=== PATIENT | male | born 1945 | race Caucasian/White ===

== ENCOUNTER 2017-05-27 10:03 | Day surgery (SDC) | payer MEDICARE ==
[~2017-05-27 10:03] MED LIST: ACETAZOLAMIDE 250 MG TABLET PO ONE; Ak-Dilate OPHTHALMIC*** 0.71 ML, Cyclogyl 1% OPHTH SOL 5 ML 0.71 ML, GATIFLOXACIN 0.5% ... OP ONE; Lactated Ringers 1,000 ML IV ONE; Lactated Ringers 1,000 ML IV SCH; TETRACAINE 0.5% STERI-UNIT SOL OP ONE; Zofran 4 MG/2 ML VIAL IV PRN
[2017-05-27] MEDS ORDERED: DIPRIVAN 200 MG/20 ML IV ONE (10:04)
[2017-05-27] MEDS ORDERED: LIDOCAINE HCL 1% AMPUL 5 ML IJ ONE (12:00)
[2017-05-27] MEDS ORDERED: Epinephrine Preservative Free 1 MG/ML INTRAOP ONE (12:00)
[2017-05-27] MEDS ORDERED: BSS 500 ML, Fortaz/Tazicef 1 GM** 0.2 G IO ONE ×2 (12:00)
[2017-05-27] MEDS ORDERED: BETADINE 5% OPHTHALMIC 30 ML OP ONE (12:00)
[2017-05-27 12:52] VITALS: O2SAT 96
[2017-05-27 12:53] VITALS: BP 142/74; PULSE 62
--- NOTE | 2017-05-28 08:03 | OP ---
DATE/TIME OF OPERATION: 05/26/2017 1139 TIME DICTATED: 1522 PREOPERATIVE DIAGNOSIS: Senile cataract of right eye. POSTOPERATIVE DIAGNOSIS: Senile cataract of right eye. SURGEON: Rogerio Calix MD [employer] HELPER: None. OPERATION: Cataract extraction of right eye with an intraocular lens implant. STANDARD __X___ COMPLEX ANESTHESIA: MAC. ___X___ Monitored anesthesia care in combination with topical and intra-cameral anesthesia (because of the established specific risk of reflux, arrhythmias, or an anxiety attack associated with ocular manipulation as well as difficulty of the cattyman to manage such potentially catastrophic events while simultaneously attempting to complete the surgical procedure, it was deemed necessary for the patient's safety to have an anesthesiologist or a nurse weathercaster present during the procedure whenever possible. The anesthesiologist or the nurse weathercaster was utilized to monitor and regulate the intravenous sedation of the patient, so the patient was cooperative, relaxed, and comfortable). Topical anesthesia using Tetracaine eye drops together with intra cameral anesthesia using Lidocaine 1% MPF. The nurse was utilized to monitor the patient. ANESTHESIA PROVIDER: Thuan Copeland CRNA. COMPLICATIONS: None. BLOOD LOSS: None. INDICATIONS: The patient is undergoing cataract surgery in the hopes of eliminating the visual complaints and difficulty. PROCEDURE: After arriving at the facility's outpatient surgery area, an IV was started; the patient was given 5 mg of p.o. Versed. (If an anesthesia provider was not monitoring the patient) The patient was then given topical anesthetic Tetracaine eye drops. A cotton pellet was soaked into a solution of a combination of Zymaxid 0.5%, Taz-Synephrine 2.5% and Ocufen (other drops might have been substituted referenced in the patient's record). The pellet was inserted by the RN into the lower conjunctival cul-de-sac with a sterile forceps and left for 20 minutes. The pellet was then removed by the RN with a sterile forceps before taking the patient to the operating room. The preoperative area nurse identified the patient and marked the correct eye to be operated on. I identified the correct eye to be operated on and marked it appropriately in the outpatient surgery area. The patient was then taken into the operating room. Tetracaine eye drops were installed again in the correct eye. The eyelids and the lashes and the lid margins were scrubbed with Betadine solution. One drop of the diluted Betadine solution was placed in the conjunctival cul-de-sac for 45 seconds and then was irrigated. A drop of Tetracaine Gel was placed in the conjunctival cul-de-sac. The patient's forehead was taped to secure it during the procedure. The patient was monitored. The patient was then draped in the usual way for this procedure. An eye speculum was used to separate the eyelids. The eye was then fixated and a temporal 2.5 mm incision was made in the clear cornea temporally at the limbus. Through the incision, 0.25 cc of 1% non-preserved lidocaine was injected into the anterior chamber for intracameral anesthesia. The anterior chamber was then filled with viscoelastic. The pupil was small. I felt that it would be safer to mechanically dilate the pupil. A Malyugin ring was used at this point which dilated the pupil. That was removed at the end of the procedure prior to aspiration of the viscoelastic from the anterior chamber and posterior to the intraocular lens implant. The cataract had a great amount of cortical changes. That rendered seeing the anterior capsule difficult for a safe performance of an anterior capsulotomy. I injected an air bubble into the anterior chamber. I then injected 1 ML of vision blue solution into the anterior chamber. The vision blue solution was irrigated from the anterior chamber after 30 seconds. The anterior capsule was stained which facilitated performing the anterior capsulotomy safely. After that was completed, a cystotome was introduced into the anterior chamber and a round anterior capsulotomy was performed. The capsule was removed by a forceps. Hydrodissection was next carried utilizing a 25-gauge cannula and balanced salt solution to delineate the cortical material from the capsule and the nucleus from the cortical material. The nucleus was rotated freely into the capsular bag with no difficulty. The phaco tip of the [employer] Phacoemulsifier was introduced into the anterior chamber and two grooves were made into the nucleus 90 degrees apart. Using two spatulas resulted into the nucleus being fractured into four quadrants. The phaco tip was then used to remove each quadrant of the nucleus. Viscoelastic was used during this process to protect the corneal endothelium. Once the entire nucleus was removed, the phaco tip then was removed and the irrigation tip was introduced into the eye and the cortex was removed. The posterior capsule was polished. It was noticed that there was a tear into the posterior capsule with few vitreous strands into the pupil plan. An anterior vitrectomy was performed. A 23.50 diopter, [id number], posterior chamber lens implant, was inspected and found to be grossly normal. The implant was inserted into the implant injector cartridge; Viscoelastic again was introduced into the anterior chamber, which filled the capsular bag. The implant injector's cartridge tip was placed at the limbal wound and the posterior chamber implant was released into the capsular bag and rotated appropriately. The implant was found to be into the capsular bag and it was centered. __X___ 0.2 ml of Tri-Moxi was introduced via 27 gauge cannula into the vitreous cavity through the ciliary processes. Viscoelastic was aspirated from the anterior chamber and posterior to the intraocular lens implant from the capsular bag using the irrigating tip. The anterior chamber was irrigated and filled with 5 cc antibiotic solution (500 cc of BSS plus 2 ml of Fortaz 100 mg/ml) ( if patient was not allergic to the medication). The lips of the corneal incision were hydrated using BSS solution. The anterior chamber was checked and found to be water tight. One drop each of antibiotic, steroid and NSAID drops (refer to chart for drops used) were placed in the conjunctival cul-de-sac of the operated eye. Patient tolerated the procedure quite well and left the operating room in satisfactory condition. DISCHARGE SUMMARY: The patient was released in stable condition. The patient and those with the patient were given an instruction sheet as of how to care for the eye after surgery as well as counseling on any abnormal laboratory studies by the postoperative RN. The patient was also given an appointment card for follow-up in the office and is to call immediately for any difficulties including but not limited to pain in the eye, decreased vision, discharge from the eye, headache and or fever. DISCHARGE DIAGNOSIS: Pseudophakia of right eye.
== END 2017-05-27 13:15 | disposition home or self-care (01) ==
LOC: SDC 10:03
PROVIDERS: ATTEND Ophthalmology
PROC: 08RJ3JZ Replacement of Right Lens with Synthetic Substitute, Percutaneous Approach (ICD-10-PCS; principal; 2017-05-27)
DX: H25.9 Unspecified age-related cataract (principal)
CPT/HCPCS: 66984; C1780; 00142; 99100; J0171; J2704; A9270-GY

== ENCOUNTER 2017-07-29 07:55 | Day surgery (SDC) | payer MEDICARE ==
[~2017-07-29 07:55] MED LIST changes: -ACETAZOLAMIDE 250 MG TABLET PO ONE; -Ak-Dilate OPHTHALMIC*** 0.71 ML, Cyclogyl 1% OPHTH SOL 5 ML 0.71 ML, GATIFLOXACIN 0.5% ... OP ONE; -Lactated Ringers 1,000 ML IV SCH; -TETRACAINE 0.5% STERI-UNIT SOL OP ONE; -Zofran 4 MG/2 ML VIAL IV PRN
[2017-07-29] MEDS ORDERED: DIPRIVAN 200 MG/20 ML IV ONE (07:56)
[2017-07-29] MEDS ORDERED: Ak-Dilate OPHTHALMIC*** 0.71 ML, Cyclogyl 1% OPHTH SOL 5 ML 0.71 ML, GATIFLOXACIN 0.5% ... OP ONE ×4 (09:00)
[2017-07-29] MEDS ORDERED: LIDOCAINE HCL 1% AMPUL 5 ML IJ ONE (09:00)
[2017-07-29] MEDS ORDERED: BSS 500 ML, Fortaz/Tazicef 1 GM** 0.2 G IO ONE ×2 (09:00)
[2017-07-29] MEDS ORDERED: Lactated Ringers 1,000 ML IV SCH (09:00)
[2017-07-29] MEDS ORDERED: TETRACAINE 0.5% STERI-UNIT SOL OP ONE ×2 (09:00)
[2017-07-29] MEDS ORDERED: BETADINE 5% OPHTHALMIC 30 ML OP ONE (09:00)
[2017-07-29] MEDS ORDERED: Epinephrine Preservative Free 1 MG/ML INTRAOP ONE (09:00)
[2017-07-29] MEDS ORDERED: Zofran 4 MG/2 ML VIAL IV PRN (10:00)
[2017-07-29] MEDS ORDERED: ACETAZOLAMIDE 250 MG TABLET PO ONE (10:00)
[2017-07-29 10:44] VITALS: BP 153/76; PULSE 63; O2SAT 97
--- NOTE | 2017-07-29 13:15 | OP ---
DATE/TIME OF OPERATION: 07/29/2017 0858 TIME DICTATED: 1202 PREOPERATIVE DIAGNOSIS: Senile cataract of left eye. POSTOPERATIVE DIAGNOSIS: Senile cataract of left eye. SURGEON: Rogerio Calix MD KENNEL HELPER: None. OPERATION: Cataract extraction of left eye with an intraocular lens implant. STANDARD __X___ COMPLEX ANESTHESIA: MAC. ___X___ Monitored anesthesia care in combination with topical and intra-cameral anesthesia (because of the established specific risk of reflux, arrhythmias, or an anxiety attack associated with ocular manipulation as well as difficulty of the intermediate teacher to manage such potentially catastrophic events while simultaneously attempting to complete the surgical procedure, it was deemed necessary for the patient's safety to have an anesthesiologist or a nurse skeiner present during the procedure whenever possible. The anesthesiologist or the nurse skeiner was utilized to monitor and regulate the intravenous sedation of the patient, so the patient was cooperative, relaxed, and comfortable). Topical anesthesia using Tetracaine eye drops together with intra cameral anesthesia using Lidocaine 1% MPF. The nurse was utilized to monitor the patient. ANESTHESIA PROVIDER: Ravi Hanna CRNA. COMPLICATIONS: None. BLOOD LOSS: None. INDICATIONS: The patient is undergoing cataract surgery in the hopes of eliminating the visual complaints and difficulty. PROCEDURE: After arriving at the facility's outpatient surgery area, an IV was started; the patient was given 5 mg of p.o. Versed. (If an anesthesia provider was not monitoring the patient) The patient was then given topical anesthetic Tetracaine eye drops. A cotton pellet was soaked into a solution of a combination of Zymaxid 0.5%, Taz-Synephrine 2.5% and Ocufen (other drops might have been substituted referenced in the patient's record). The pellet was inserted by the RN into the lower conjunctival cul-de-sac with a sterile forceps and left for 20 minutes. The pellet was then removed by the RN with a sterile forceps before taking the patient to the operating room. The preoperative area nurse identified the patient and marked the correct eye to be operated on. I identified the correct eye to be operated on and marked it appropriately in the outpatient surgery area. The patient was then taken into the operating room. Tetracaine eye drops were installed again in the correct eye. The eyelids and the lashes and the lid margins were scrubbed with Betadine solution. One drop of the diluted Betadine solution was placed in the conjunctival cul-de-sac for 45 seconds and then was irrigated. A drop of Tetracaine Gel was placed in the conjunctival cul-de-sac. The patient's forehead was taped to secure it during the procedure. The patient was monitored. The patient was then draped in the usual way for this procedure. An eye speculum was used to separate the eyelids. The eye was then fixated and a temporal 2.5 mm incision was made in the clear cornea temporally at the limbus. Through the incision, 0.25 cc of 1% non-preserved lidocaine was injected into the anterior chamber for intracameral anesthesia. The anterior chamber was then filled with viscoelastic. The pupil was small. I felt that it would be safer to mechanically dilate the pupil. A Malyugin ring was used at this point which dilated the pupil. That was removed at the end of the procedure prior to aspiration of the viscoelastic from the anterior chamber and posterior to the intraocular lens implant. The cataract had a great amount of cortical changes. That rendered seeing the anterior capsule difficult for a safe performance of an anterior capsulotomy. I injected an air bubble into the anterior chamber. I then injected 1 ML of vision blue solution into the anterior chamber. The vision blue solution was irrigated from the anterior chamber after 30 seconds. The anterior capsule was stained which facilitated performing the anterior capsulotomy safely. After that was completed, a cystotome was introduced into the anterior chamber and a round anterior capsulotomy was performed. The capsule was removed by a forceps. Hydrodissection was next carried utilizing a 25-gauge cannula and balanced salt solution to delineate the cortical material from the capsule and the nucleus from the cortical material. The nucleus was rotated freely into the capsular bag with no difficulty. The phaco tip of the [employer] Phacoemulsifier was introduced into the anterior chamber and two grooves were made into the nucleus 90 degrees apart. Using two spatulas resulted into the nucleus being fractured into four quadrants. The phaco tip was then used to remove each quadrant of the nucleus. Viscoelastic was used during this process to protect the corneal endothelium. Once the entire nucleus was removed, the phaco tip then was removed and the irrigation tip was introduced into the eye and the cortex was removed. The posterior capsule was polished. It was noticed that there was a tear into the posterior capsule with few vitreous strands into the pupil plan. An anterior vitrectomy was performed. A 22.50 diopter, [id number], posterior chamber lens implant, was inspected and found to be grossly normal. The implant was inserted into the implant injector cartridge; Viscoelastic again was introduced into the anterior chamber, which filled the capsular bag. The implant injector's cartridge tip was placed at the limbal wound and the posterior chamber implant was released into the capsular bag and rotated appropriately. The implant was found to be into the capsular bag and it was centered. __X___ 0.2 ml of Tri-Moxi was introduced via 27 gauge cannula into the vitreous cavity through the ciliary processes. Viscoelastic was aspirated from the anterior chamber and posterior to the intraocular lens implant from the capsular bag using the irrigating tip. The anterior chamber was irrigated and filled with 5 cc antibiotic solution (500 cc of BSS plus 2 ml of Fortaz 100 mg/ml) ( if patient was not allergic to the medication). The lips of the corneal incision were hydrated using BSS solution. The anterior chamber was checked and found to be water tight. One drop each of antibiotic, steroid and NSAID drops (refer to chart for drops used) were placed in the conjunctival cul-de-sac of the operated eye. Patient tolerated the procedure quite well and left the operating room in satisfactory condition. DISCHARGE SUMMARY: The patient was released in stable condition. The patient and those with the patient were given an instruction sheet as of how to care for the eye after surgery as well as counseling on any abnormal laboratory studies by the postoperative RN. The patient was also given an appointment card for follow-up in the office and is to call immediately for any difficulties including but not limited to pain in the eye, decreased vision, discharge from the eye, headache and or fever. DISCHARGE DIAGNOSIS: Pseudophakia of left eye.
== END 2017-07-29 10:35 | disposition home or self-care (01) ==
LOC: SDC 07:55
PROVIDERS: ATTEND Ophthalmology
PROC: 08RK3JZ Replacement of Left Lens with Synthetic Substitute, Percutaneous Approach (ICD-10-PCS; principal; 2017-07-29)
PROC: 08B53ZZ Excision of Left Vitreous, Percutaneous Approach (ICD-10-PCS; 2017-07-29)
DX: H25.9 Unspecified age-related cataract (principal); E78.00 Pure hypercholesterolemia, unspecified; Z79.899 Other long term (current) drug therapy
CPT/HCPCS: 66984; 67005; C1780; 00142; 99100; J0171; J2704; A9270-GY

== ENCOUNTER 2017-08-22 13:44 | Emergency (ER) | payer MEDICARE ==
--- NOTE | 2017-08-22 14:27 | ERPHSYRPT ---
- History of Present Illness Time Seen by Provider: 08/22/17 14:14 Historian: patient, family Exam Limitations: no limitations Patient Subjective Stated Complaint: pt states last pm after eating he developed pain to right side and diaphragm. denies any injury. states he did have chills. Triage Nursing Assessment: pt pink, warm, dry. lung sounds clear and equal. Physician History: The patient is a 72-year-old male with his complaining that he had slight nausea and right upper quadrant abdominal pain after eating supper last night. He woke up about 1 AM with more abdominal pain that was across the upper part of his abdomen. The nausea has dissipated. He denies vomiting. He had slight chills last night. He denies cough. He thinks he may have coronary artery disease because he states his carotid arteries or 30% occluded. His past medical history is significant for cholecystectomy 15 years ago and high cholesterol. Timing/Duration: yesterday Activities at Onset: other (eating) Quality: aching Abdominal Pain Onset Location: RUQ, epigastric Severity of Pain-Max: mild Severity of Pain-Current: mild Associated Symptoms: nausea Previous symptoms: no prior history Allergies/Adverse Reactions: No Known Drug Allergies Allergy (Verified 08/22/17 14:06) Home Medications: Budesonide/Formoterol Fumarate [Symbicort 160-4.5 Mcg Inhaler] 1 puff IH DAILY 05/22/17 [History] Alprazolam 1 mg [Xanax 1 mg] 1 mg PO TIDPRN 08/22/17 [History] Loratadine 10 mg [Claritin 10 mg] 10 mg PO DAILY 08/22/17 [History] Pitavastatin Calcium [Livalo] 2 mg PO HS 08/22/17 [History] Hx Tetanus, Diphtheria Vaccination/Date Given: Yes (up date) Hx Influenza Vaccination/Date Given: Yes Hx Pneumococcal Vaccination/Date Given: No Immunizations Up to Date: Yes - Review of Systems Constitutional: No Fever, No Chills Eyes: No Symptoms Ears, Nose, & Throat: No Symptoms Respiratory: No Cough, No Dyspnea Cardiac: No Chest Pain, No Edema, No Syncope Abdominal/Gastrointestinal: Abdominal Pain, Nausea Genitourinary Symptoms: No Dysuria Musculoskeletal: No Back Pain, No Neck Pain Skin: No Rash Neurological: No Dizziness, No Focal Weakness, No Sensory Changes Psychological: No Symptoms Endocrine: No Symptoms Hematologic/Lymphatic: No Symptoms Immunological/Allergic: No Symptoms All Other Systems: Reviewed and Negative - Past Medical History Pertinent Past Medical History: Yes Neurological History: No Pertinent History ENT History: Cataracts Cardiac History: No Pertinent History Respiratory History: Asthma Endocrine Medical History: No Pertinent History Musculoskeletal History: No Pertinent History GI Medical History: Gallbladder Disease, Hemorrhoids History: No Pertinent History Psycho-Social History: No Pertinent History Male Reproductive Disorders: No Pertinent History - Past Surgical History Past Surgical History: Yes Neuro Surgical History: No Pertinent History Cardiac: No Pertinent History Respiratory: No Pertinent History Gastrointestinal: Cholecystectomy, Hemorrhoidectomy Genitourinary: No Pertinent History Musculoskeletal: No Pertinent History Male Surgical History: No Pertinent History Other Surgical History: hemrrhoid surgery rt eye cataract - Social History Smoking Status: Former smoker Exposure to second hand smoke: No Drug Use: none Patient Lives Alone: No - Nursing Vital Signs Nursing Vital Signs: Initial Vital Signs Temperature 97.8 F 08/22/17 14:00 Pulse Rate 81 08/22/17 14:00 Respiratory Rate 18 08/22/17 14:00 Blood Pressure 173/91 08/22/17 14:00 O2 Sat by Pulse Oximetry 96 08/22/17 14:00 Pain Scale Pain Intensity 0 - Physical Exam General Appearance: no apparent distress, alert Eye Exam: PERRL/EOMI, eyes nml inspection Ears, Nose, Throat Exam: normal ENT inspection, pharynx normal, moist mucous membranes Neck Exam: normal inspection, non-tender, supple, full range of motion Respiratory Exam: normal breath sounds, lungs clear, No respiratory distress Cardiovascular Exam: regular rate/rhythm, normal heart sounds Gastrointestinal/Abdomen Exam: tenderness (RUQ) Rectal Exam: not done Back Exam: normal inspection, normal range of motion, No CVA tenderness, No vertebral tenderness Extremity Exam: normal inspection, normal range of motion, pelvis stable Neurologic Exam: alert, oriented x 3, cooperative, normal mood/affect, nml cerebellar function, sensation nml, No motor deficits Skin Exam: normal color, warm, dry SpO2 Interpretation: normal SpO2: 96 Oxygen Delivery: Room Air - Course EKG Interpreted by Me: RATE, Sinus Rhythm, Left [place] Deviation, NORMAL INTERVALS , NORMAL ST-T - Radiology Exams Chest X-ray Interpretation: Teleradiologist Report, Negative (nonacute chest per Dr Park.) - CT Exams Abdomen/Pelvis CT Interpretation: Tele-radiologist Report (mild fecal stasis; diverticulosis; B renal cysts that may need CT o MRI; urinary bladder calcifications (possible malignancy); B inguinal hernias; heptic cysts and enlarged prostate; pulmonary emphysema. per Dr Park.) Ordered Tests: Active Orders 24 hr Category Date Time Status EKG-ER Only STAT Care 08/22/17 14:31 Active IV Insertion STAT Care 08/22/17 14:31 Active ABDOMEN AND PELVIS W/0 CONTRAS [CT] Stat Exams 08/22/17 15:52 Completed CHEST 2 VIEWS (PA AND LAT) Stat Exams 08/22/17 14:31 Completed CBC W DIFF Stat Lab 08/22/17 14:05 Completed CMP Stat Lab 08/22/17 14:05 Completed LIPASE Stat Lab 08/22/17 14:05 Completed Lactic Acid Stat Lab 08/22/17 14:31 Completed Manual Differential NC Stat Lab 08/22/17 14:05 Completed TROPONIN Q3H Lab 08/22/17 14:45 Completed TROPONIN Q3H Lab 08/22/17 18:00 Received TROPONIN Q3H Lab 08/22/17 20:45 Ordered TROPONIN Q3H Lab 08/22/17 23:45 Ordered TROPONIN Q3H Lab 08/23/17 02:45 Ordered UA W/RFX UR CULTURE Stat Lab 08/22/17 18:47 Completed Medication Summary Discontinued Medications Generic Name Dose Route Start Last Admin Trade Name Freq PRN Reason Stop Dose Admin Alprazolam 1 mg 08/22/17 16:27 08/22/17 16:34 Xanax 0.5 Mg PO 08/22/17 16:28 0.5 mg STAT ONE Administration Alprazolam Confirm 08/22/17 16:33 Xanax 0.5 Mg Administered 08/22/17 16:34 Dose 1 mg .ROUTE .STK-MED ONE Famotidine 20 mg 08/22/17 14:31 08/22/17 14:46 Pepcid 20 Mg Vial IV 08/22/17 14:32 20 mg STAT ONE Administration Famotidine Confirm 08/22/17 14:39 Pepcid 20 Mg Vial Administered 08/22/17 14:40 Dose 20 mg IV .STK-MED ONE Ondansetron HCl 4 mg 08/22/17 14:31 08/22/17 14:46 Zofran 4 Mg/2 Ml Vial IV 08/22/17 14:32 4 mg STAT ONE Administration Ondansetron HCl Confirm 08/22/17 14:39 Zofran 4 Mg/2 Ml Vial Administered 08/22/17 14:40 Dose 4 mg .ROUTE .STK-MED ONE Lab/Rad Data: Laboratory Result Diagrams 08/22/17 14:05 08/22/17 14:05 Laboratory Results 08/22/17 08/22/17 08/22/17 Range/Units 18:47 14:45 14:31 WBC (4.0-10.5) K/mm3 RBC (4.1-5.6) M/mm3 Hgb (12.5-18.0) gm/dl Hct (42-50) % MCV (78-100) fl MCH (26-32) pg MCHC (32-36) g/dl RDW (11.5-14.0) % Plt Count (150-450) K/mm3 MPV (6-9.5) fl Segmented Neutrophils (36.-66.) % Band Neutrophils (0.0-2.0) % Lymphocytes (Manual) (24-44) % Monocytes (Manual) (0.0-12.0) % Eosinophils (Manual) (0.00-3.0) % Basophils (Manual) (0.0-1.0) % Differential Comment Platelet Estimate (NORMAL) Sodium (136-145) mEq/L Potassium (3.5-5.1) mEq/L Chloride (98-107) mEq/L Carbon Dioxide (21-32) mEq/L Anion Gap (5-15) MEQ/L BUN (9-20) mg/dL Creatinine (0.55-1.30) mg/dl Estimated GFR ML/MIN Glucose (70-110) MG/DL Lactic Acid 1.5 (0.4-2.0) Calcium (8.5-10.1) mg/dL Total Bilirubin (0.2-1.0) mg/dL AST (15-37) U/L ALT (12-78) U/L Alkaline Phosphatase (46-116) U/L Troponin I < 0.017 (0.000-0.056) ng/ml Serum Total Protein (6.4-8.2) gm/dL Albumin (3.4-5.0) g/dL Lipase (73-393) U/L Ur Collection Type CLEAN CATCH Urine Color YELLOW (YELLOW) Urine Appearance CLEAR (CLEAR) Urine pH 6.0 (5-6) Ur Specific [place] 1.020 (1.005-1.025) Urine Protein NEGATIVE (Negative) Urine Ketones NEGATIVE (NEGATIVE) Urine Blood NEGATIVE (0-5) David/ul Urine Nitrite NEGATIVE (NEGATIVE) Urine Bilirubin NEGATIVE (NEGATIVE) Urine Urobilinogen NORMAL (0-1) mg/dL Ur Leukocyte Esterase NEGATIVE (NEGATIVE) Urine Culture Reflexed NO (NO) Urine Glucose NEGATIVE (NEGATIVE) mg/dL Influenza Type A Ag (NEGATIVE) Influenza Type B Ag (NEGATIVE) RSV (PCR) (Negative) Specimen Received [id number] 08/22/17 08/22/17 08/22/17 Range/Units 14:05 14:05 14:05 WBC 13.4 H (4.0-10.5) K/mm3 RBC 5.56 (4.1-5.6) M/mm3 Hgb 17.0 (12.5-18.0) gm/dl Hct 53.0 H (42-50) % MCV 95.3 (78-100) fl MCH 30.6 (26-32) pg MCHC 32.1 (32-36) g/dl RDW 13.0 (11.5-14.0) % Plt Count 244 (150-450) K/mm3 MPV 9.1 (6-9.5) fl Segmented Neutrophils 73 H (36.-66.) % Band Neutrophils 1 (0.0-2.0) % Lymphocytes (Manual) 17 L (24-44) % Monocytes (Manual) 6 (0.0-12.0) % Eosinophils (Manual) 2 (0.00-3.0) % Basophils (Manual) 1 (0.0-1.0) % Differential Comment NORMAL Platelet Estimate NORMAL (NORMAL) Sodium 143 (136-145) mEq/L Potassium 3.8 (3.5-5.1) mEq/L Chloride 104 (98-107) mEq/L Carbon Dioxide 30.4 (21-32) mEq/L Anion Gap 12.0 (5-15) MEQ/L BUN 16 (9-20) mg/dL Creatinine 1.08 (0.55-1.30) mg/dl Estimated GFR > 60 ML/MIN Glucose 93 (70-110) MG/DL Lactic Acid (0.4-2.0) Calcium 9.2 (8.5-10.1) mg/dL Total Bilirubin 0.60 (0.2-1.0) mg/dL AST 21 (15-37) U/L ALT 30 (12-78) U/L Alkaline Phosphatase 76 (46-116) U/L Troponin I (0.000-0.056) ng/ml Serum Total Protein 7.8 (6.4-8.2) gm/dL Albumin 3.9 (3.4-5.0) g/dL Lipase 119 (73-393) U/L Ur Collection Type Urine Color (YELLOW) Urine Appearance (CLEAR) Urine pH (5-6) Ur Specific [place] (1.005-1.025) Urine Protein (Negative) Urine Ketones (NEGATIVE) Urine Blood (0-5) David/ul Urine Nitrite (NEGATIVE) Urine Bilirubin (NEGATIVE) Urine Urobilinogen (0-1) mg/dL Ur Leukocyte Esterase (NEGATIVE) Urine Culture Reflexed (NO) Urine Glucose (NEGATIVE) mg/dL Influenza Type A Ag NEGATIVE (NEGATIVE) Influenza Type B Ag NEGATIVE (NEGATIVE) RSV (PCR) NEGATIVE (Negative) Specimen Received - Progress Progress Note: 08/22/17 18:57 After the patient received Xanax 0.5 mg orally and Pepcid 20 mg and Zofran 4 mg by IV, the patient is now feeling much better. He is now hungry. He has no abdominal pain. Counseled pt/family regarding: lab results, diagnosis, need for follow-up, rad results - Departure Time of Disposition: 18:56 Departure Disposition: Home Clinical Impression: Abdominal pain, Renal cyst, Calcification of bladder Condition: Stable Critical Care Time: No Referrals: ZONIA LAWRENCE [Primary Care Provider] - Additional Instructions: You have abdominal pain that was relieved with Pepcid 20 mg and Zofran 4 mg by IV in the ER. The CT of the abdomen and pelvis showed mild fecal stasis, multiple bilateral renal cysts, urinary bladder calcifications, bilateral inguinal hernias, and an enlarged prostate. Please follow-up with your doctor for further evaluation of the renal cysts and urinary bladder calcifications.
[2017-08-22] MEDS ORDERED: Pepcid 20 MG VIAL IV ONE ×2 (14:31→14:39)
[2017-08-22] MEDS ORDERED: Zofran 4 MG/2 ML VIAL IV ONE (14:31)
[2017-08-22] MEDS ORDERED: Zofran 4 MG/2 ML VIAL ONE (14:39)
[2017-08-22 14:59] LABS: Mean Cell Volume 95.3 fl (78-100); Mean Corpuscular Hemoglobin 30.6 pg (26-32); Mean Platelet Volume 9.1 fl (6-9.5); Platelet Count 244 K/mm3 (150-450); Red Blood Count 5.56 M/mm3 (4.1-5.6); White Blood Count 13.4 K/mm3 (4.0-10.5)
[2017-08-22 15:22] LABS: BAND 1 % (0.0-2.0); Basophil 1 % (0.0-1.0); Eosinophil 2 % (0.00-3.0); Platelet Estimate NORMAL (NORMAL); Total Cells Counted 100
[2017-08-22 15:23] LABS: ALBUMIN 3.9 g/dL (3.4-5.0); ALKALINE PHOSPHATASE 76 U/L (46-116); BLOOD UREA NITROGEN 16 mg/dL (9-20); CHLORIDE 104 mEq/L (98-107); Carbon Dioxide 30.4 mEq/L (21-32); Glucose 93 MG/DL (70-110); LIPASE 119 U/L (73-393); Potassium 3.8 mEq/L (3.5-5.1); SGOT/AST 21 U/L (15-37); SGPT/ALT 30 U/L (12-78); SODIUM 143 mEq/L (136-145); Total Protein 7.8 gm/dL (6.4-8.2)
--- NOTE | 2017-08-22 15:41 | XRAY ---
Indication: Cough and right-sided chest pain. Comparison: May 10, 2011. PA/lateral chest hyperinflated without focal infiltrate, consolidation, or large effusion. Heart is not enlarged. Vascularity normal. Bony thorax intact with mild degenerative changes. Impression: Nonacute hyperinflated chest.
[2017-08-22] MEDS ORDERED: xanAX 0.5 MG PO ONE (16:27)
[2017-08-22] MEDS ORDERED: xanAX 0.5 MG ONE (16:33)
--- NOTE | 2017-08-22 16:54 | XRAY ---
Indication: Right-sided abdominal pain. Multiple contiguous axial images obtained through the abdomen and pelvis without contrast as ordered. Comparison: None Lung bases demonstrates mild pulmonary emphysema and bibasilar atelectasis/scarring. No infiltrate or effusion. Heart is not enlarged. Noncontrasted stomach and bowel loops appear nonobstructed. Mild diffuse scattered colonic fecal debris throughout. Also scattered colonic diverticulosis without diverticulitis. Normal appendix. No free fluid/air. There are multiple bilateral renal cysts, several appearing slightly more dense than simple cysts. Largest cyst emanates from the right lower pole measuring 5 cm. No renal calcifications/calculi or evidence for obstructive uropathy. There are posterior bladder wall calcifications, largest 4 x 11 mm. Enlarged prostate gland also impresses on the base of the bladder. There are a few hepatic cysts, largest 1 cm in the right lobe. Previous cholecystectomy. Remaining liver, pancreas, spleen, adrenal glands, and ureters appear unremarkable for noncontrast exam. Moderate aortoiliac calcifications without AAA. Osseous structures intact with mild degenerative changes throughout the spine, greatest at the lumbosacral junction. Small fatty left inguinal hernia and small right inguinal hernia with knuckle of small bowel herniating. Impression: 1. Mild fecal stasis without obstruction and scattered colonic diverticulosis. 2. Multiple bilateral renal cysts, several appearing more dense than simple cysts. CT or MRI with and without contrast may yield further information. 3. Urinary bladder calcifications posteriorly probably bladder wall calcifications. Rule out malignancy. Direct cystoscopy may yield further information. 4. Small bilateral inguinal hernias. Left hernia is fatty and the right hernia contains a knuckle of small bowel without incarceration/obstruction. 5. Tiny hepatic cysts and enlarged prostate gland. 6. Pulmonary emphysema. CTDI 13.72
[2017-08-22 18:48] LABS: ADD URINE CULTURE? NO (NO); Bilirubin NEGATIVE (NEGATIVE); Blood NEGATIVE Ery/ul (0-5); COMPLETE URINE MICROSCOPIC? NO; Collection Type CLEAN CATCH; Glucose NEGATIVE (NEGATIVE); Leukocyte Esterase NEGATIVE (NEGATIVE)
[2017-08-22 19:13] VITALS: BP 161/79; PULSE 85; O2SAT 95
== END 2017-08-22 19:13 | disposition home or self-care (01) ==
LOC: ED 13:44
DX: R10.11 Right upper quadrant pain (principal); N28.1 Cyst of kidney, acquired; N32.89 Other specified disorders of bladder; R11.0 Nausea; Z79.899 Other long term (current) drug therapy
CPT/HCPCS: 36000; 36415; 71020; 74176; 80053; 81002; 83605; 83690; 84484; 85025; 87631; 93005; 96374; 96375; 99284; J2405; A9270-GY

== ENCOUNTER 2018-05-31 14:05 | Emergency (ER) | payer MEDICARE ==
[2018-05-31] MEDS ORDERED: Adacel Vial IM ONE ×2 (14:24→14:29)
--- NOTE | 2018-05-31 14:24 | ERPHSYRPT ---
- History of Present Illness Time Seen by Provider: 05/31/18 14:20 Source: patient, family Exam Limitations: no limitations Patient Subjective Stated Complaint: pt states he was working on his car when the santiago fell down striking his left arm last night approx 5pm. denies pain. Triage Nursing Assessment: pt is aox3, pupils perrl, afebrile, resps easy and non labored, skin pink warm dry. skin tear to the left forearm. no bleeding at this time. radial pulses strong and equal, sensation is intact. ROM normal. Physician History: The patient is a 73-year-old left-handed male with his complaining that he got a skin tear to the midportion of his left forearm yesterday while working on his car. He was wearing a longsleeved jacket when the car santiago fell onto his left arm. He tried pulling his arm out from underneath the santiago, causing a skin tear to his arm. He denies much pain. He denies numbness or tingling. His last tetanus vaccination was 10 years ago. His past medical history is significant for high cholesterol. Timing/Duration: yesterday Quality: painful Severity: mild Location: extremities (left forearm) Possible Causes: other (trauma) Associated Symptoms: other (skin tear) Allergies/Adverse Reactions: No Known Drug Allergies Allergy (Verified 05/31/18 14:20) Home Medications: Budesonide/Formoterol Fumarate [Symbicort 160-4.5 Mcg Inhaler] 1 puff IH DAILY 05/22/17 [History] Alprazolam 1 mg [Xanax 1 mg] 1 mg PO TIDPRN 08/22/17 [History] Loratadine 10 mg [Claritin 10 mg] 10 mg PO DAILY 08/22/17 [History] Pitavastatin Calcium [Livalo] 2 mg PO HS 08/22/17 [History] Hx Tetanus, Diphtheria Vaccination/Date Given: No Hx Influenza Vaccination/Date Given: No Hx Pneumococcal Vaccination/Date Given: No Immunizations Up to Date: Yes - Review of Systems Constitutional: No Fever, No Chills Eyes: No Symptoms Ears, Nose, & Throat: No Symptoms Respiratory: No Cough, No Dyspnea Cardiac: No Chest Pain, No Edema, No Syncope Abdominal/Gastrointestinal: No Abdominal Pain, No Nausea, No Vomiting, No Diarrhea Genitourinary Symptoms: No Dysuria Musculoskeletal: No Back Pain, No Neck Pain Skin: Other (skin tear) Neurological: No Dizziness, No Focal Weakness, No Sensory Changes Psychological: No Symptoms Endocrine: No Symptoms Hematologic/Lymphatic: No Symptoms Immunological/Allergic: No Symptoms All Other Systems: Reviewed and Negative - Past Medical History Pertinent Past Medical History: Yes Neurological History: No Pertinent History ENT History: Cataracts Cardiac History: No Pertinent History Respiratory History: Asthma Endocrine Medical History: No Pertinent History Musculoskeletal History: No Pertinent History GI Medical History: Gallbladder Disease, Hemorrhoids History: No Pertinent History Psycho-Social History: No Pertinent History Male Reproductive Disorders: No Pertinent History - Past Surgical History Past Surgical History: Yes Neuro Surgical History: No Pertinent History Cardiac: No Pertinent History Respiratory: No Pertinent History Gastrointestinal: Cholecystectomy, Hemorrhoidectomy Genitourinary: No Pertinent History Musculoskeletal: No Pertinent History Male Surgical History: No Pertinent History Other Surgical History: hemrrhoid surgery. rt eye cataract - Social History Smoking Status: Never smoker Exposure to second hand smoke: No Drug Use: none Patient Lives Alone: No - Nursing Vital Signs Nursing Vital Signs: Initial Vital Signs Pulse Rate 71 05/31/18 14:10 Respiratory Rate 20 05/31/18 14:10 Blood Pressure 146/78 05/31/18 14:10 O2 Sat by Pulse Oximetry 95 05/31/18 14:10 Pain Scale Pain Intensity 0 - Physical Exam General Appearance: no apparent distress, alert Eye Exam: PERRL/EOMI, eyes nml inspection Ears, Nose, Throat Exam: normal ENT inspection, pharynx normal, moist mucous membranes Neck Exam: normal inspection, non-tender, supple, full range of motion Respiratory Exam: normal breath sounds, lungs clear, No respiratory distress Cardiovascular Exam: regular rate/rhythm, normal heart sounds Gastrointestinal/Abdomen Exam: soft, mass, No tenderness Rectal Exam: not done Back Exam: normal inspection, normal range of motion, No CVA tenderness, No vertebral tenderness Extremity Exam: normal inspection, normal range of motion Neurologic Exam: alert, oriented x 3, cooperative, normal mood/affect, sensation nml, No motor deficits Skin Exam: laceration (4 cm v-shaped skin tear to mid left forearm.) SpO2 Interpretation: normal SpO2: 95 Oxygen Delivery: Room Air Ordered Tests: Active Orders 24 hr Category Date Time Status Wound Care STAT Care 05/31/18 14:23 Ordered Wound Care STAT Care 05/31/18 14:24 Ordered - Departure Time of Disposition: 14:26 Departure Disposition: Home Clinical Impression: Skin tear Condition: Stable Critical Care Time: No Referrals: ZONIA LAWRENCE [Primary Care Provider] - Additional Instructions: You have a skin tear to the mid portion of your left forearm that was closed with Steri-Strips. You were given a tetanus vaccination in the ER. Take Keflex 500 mg 4 times a day for 10 days. Allow the Steri-Strips to fall off on their own. Follow-up with your primary medical doctor as needed. Prescriptions: Cephalexin Mh 500 mg [Keflex 500 mg] 1 cap PO QID #40 capsule
[2018-05-31 15:03] VITALS: BP 143/68; PULSE 76; O2SAT 97
== END 2018-05-31 15:03 | disposition home or self-care (01) ==
LOC: ED 14:05
DX: S51.812A Laceration without foreign body of left forearm, initial encounter (principal); W20.8XXA Other cause of strike by thrown, projected or falling object, initial encounter; Y93.89 Activity, other specified; Z79.899 Other long term (current) drug therapy
CPT/HCPCS: 90471; 90715; 99283

== ENCOUNTER 2019-08-02 09:46 | Emergency (ER) | payer MEDICARE ==
[2019-08-02] MEDS ORDERED: Sodium Chloride 0.9% 1000 ML 1,000 ML IV STA ×2 (10:14→12:28)
[2019-08-02] MEDS ORDERED: Sodium Chloride 0.9% 1000 ML 1,000 ML ONE ×2 (10:28→12:32)
[2019-08-02 10:37] LABS: Absolute Neutrophil Ct (ANC) 4.29 (1.4-6.9); BASOPHIL % 0.5 % (0.0-0.4); Basophil (Absolute #) 0.03 (0-0.4); Eosinophil % 1.7 % (0.00-5.0); Eosinophil (Absolute #) 0.11 (0-0.5); Hematocrit 49.5 % (42-50); Hemoglobin 16.6 gm/dl (12.5-18.0); Lymphocyte (Absolute #) 1.31 (1.0-4.6); Mean Cell Volume 93.2 fl (78-100); Mean Corpuscular Hemoglobin 31.3 pg (26-32); Mean Corpuscular Hgb Concent. 33.5 g/dl (32-36); Mean Platelet Volume 8.9 fl (6-9.5); Monocyte (Absolute #) 0.82 (0.0-1.3); Monocytes % 12.5 % (0.0-12.0); Neutrophil % 65.3 % (36.0-66.0); Platelet Count 210 K/mm3 (150-450); Red Blood Count 5.31 M/mm3 (4.1-5.6); Red Cell Distribution Width 12.9 % (11.5-14.0); White Blood Count 6.6 K/mm3 (4.0-10.5)
[2019-08-02 10:38] LABS: ALBUMIN 4.1 g/dL (3.5-5.0); ALKALINE PHOSPHATASE 57 U/L (38-126); AMYLASE 91 U/L (30-110); ANION GAP 13.1 MEQ/L (5-15); BLOOD UREA NITROGEN 12 mg/dL (9-20); CHLORIDE 105 mmol/L (98-107); Calcium 8.7 mg/dL (8.4-10.2); Carbon Dioxide 26 mmol/L (22-30); Creatinine 1 0.75 mg/dL (0.66-1.25); Glucose 124 mg/dL (74-106); LIPASE 80 U/L (23-300); Potassium 3.2 mmol/L (3.5-5.1); SGOT/AST 35 U/L (17-59); SGPT/ALT 32 U/L (0-50); SODIUM 141 mmol/L (137-145); Total Protein 7.3 g/dL (6.3-8.2)
--- NOTE | 2019-08-02 11:15 | XRAY ---
Indication: Vomiting 5 days. Comparison: Chest exam April 28, 2019. 2 views of the abdomen demonstrates a few mild air distended small bowel loops with fluid leveling. There is paucity of distal colonic bowel gas. Findings possibly ileus versus enterocolitis with distal small bowel obstruction not completely excluded. Previous cholecystomy. Osseous structures intact with mild degenerative changes throughout the spine and both hips. Single PA chest again hyperinflated with minimal left base fibrosis/scarring. No focal infiltrate, consolidation, or large effusion. Heart is not enlarged with stable subcarinal calcified nodes. Bony thorax intact again with mild degenerative changes. Impression: 1. Mild air distended small bowel loops with fluid leveling, ileus versus enterocolitis with distal obstruction not completely excluded. CT may yield further information if clinically warranted. 2. Stable nonacute hyperinflated chest with chronic features.
[2019-08-02 13:43] LABS: Appearance CLEAR (CLEAR); Bilirubin NEGATIVE (NEGATIVE); Blood SMALL Ery/ul (0-5); Glucose NEGATIVE (NEGATIVE); Ketones NEGATIVE (NEGATIVE); Leukocyte Esterase NEGATIVE (NEGATIVE); Mucus SLIGHT /HPF (NEGATIVE); Nitrite NEGATIVE (NEGATIVE); Protein,Urine Dip NEGATIVE (Negative); Specific Gravity 1.009 (1.005-1.025); Urobilinogen NEGATIVE mg/dL (0-1)
[2019-08-02 14:03] LABS: 027 TOX PROD PRESUMPTIVE NEGATIVE (NEGATIVE); TOXIGENIC C. DIFF ORG NEGATIVE (NEGATIVE)
--- NOTE | 2019-08-02 14:03 | ERPHSYRPT ---
- History of Present Illness Time Seen by Provider: 08/02/19 10:15 Historian: patient, family Exam Limitations: no limitations Patient Subjective Stated Complaint: diarrhea Triage Nursing Assessment: Patient ambulated into ED and transferred self to bed. Patient A+O X3. Patient's skin pink, warm and dry. Patient complains of vomitted and diarrhea for 5 days. Patient denies pain or discomfort. BS active X4. Patient's abdomen soft and round. Physician History: patient is a 74-year-old white male whose was seen in ER yesterday who presents with a five-day history of nausea and vomiting and rate continuous frequent diarrhea. He has had some fever chills and sweats his was in the ER yesterday was given IV fluids. Timing/Duration: day(s) (5) Activities at Onset: none Quality: cramping Abdominal Pain Onset Location: generalized abdomen Pain Radiation: no radiation Severity of Pain-Max: mild Severity of Pain-Current: mild Modifying Factors: Improves With: nothing, vomiting Associated Symptoms: diarrhea, fever/chills, nausea, vomiting, weakness Previous symptoms: no prior history Allergies/Adverse Reactions: No Known Drug Allergies Allergy (Verified 08/02/19 10:14) Home Medications: Alprazolam 1 mg [Xanax 1 mg] 1 mg PO Q4HPRN PRN 08/22/17 [History] Loratadine 10 mg [Claritin 10 mg] 10 mg PO DAILY 08/22/17 [History] Rosuvastatin Calcium [Crestor] 10 mg PO DAILY 08/02/19 [History] Hx Tetanus, Diphtheria Vaccination/Date Given: Yes (06/07/18) Hx Influenza Vaccination/Date Given: Yes (05/31/19) Hx Pneumococcal Vaccination/Date Given: Yes (2010) Immunizations Up to Date: Yes - Review of Systems Constitutional: No Fever, No Chills Eyes: No Symptoms Ears, Nose, & Throat: No Symptoms Respiratory: No Cough, No Dyspnea Cardiac: No Chest Pain, No Edema, No Syncope Abdominal/Gastrointestinal: Nausea, Vomiting, Diarrhea, No Abdominal Pain Genitourinary Symptoms: No Dysuria Musculoskeletal: No Back Pain, No Neck Pain Skin: No Rash Neurological: No Dizziness, No Focal Weakness, No Sensory Changes Psychological: No Symptoms Endocrine: No Symptoms All Other Systems: Reviewed and Negative - Past Medical History Pertinent Past Medical History: Yes Neurological History: No Pertinent History ENT History: Cataracts Cardiac History: No Pertinent History Respiratory History: Asthma Endocrine Medical History: No Pertinent History Musculoskeletal History: No Pertinent History GI Medical History: Gallbladder Disease, Hemorrhoids History: No Pertinent History Psycho-Social History: No Pertinent History Male Reproductive Disorders: No Pertinent History - Past Surgical History Past Surgical History: Yes Neuro Surgical History: No Pertinent History Cardiac: No Pertinent History Respiratory: No Pertinent History Gastrointestinal: Cholecystectomy, Hemorrhoidectomy Genitourinary: No Pertinent History Musculoskeletal: No Pertinent History Male Surgical History: No Pertinent History Other Surgical History: hemrrhoid surgery. rt eye cataract - Social History Smoking Status: Never smoker Exposure to second hand smoke: No Drug Use: none Patient Lives Alone: No - Nursing Vital Signs Nursing Vital Signs: Initial Vital Signs Temperature 97.9 F 08/02/19 10:03 Pulse Rate 70 08/02/19 10:03 Respiratory Rate 18 08/02/19 10:03 Blood Pressure 143/100 08/02/19 10:03 O2 Sat by Pulse Oximetry 96 08/02/19 10:03 Pain Scale Pain Intensity 0 - Physical Exam General Appearance: no apparent distress, alert Eye Exam: PERRL/EOMI, eyes nml inspection Ears, Nose, Throat Exam: normal ENT inspection, pharynx normal, moist mucous membranes Neck Exam: normal inspection, non-tender, supple, full range of motion Respiratory Exam: normal breath sounds, lungs clear, No respiratory distress Cardiovascular Exam: regular rate/rhythm, normal heart sounds Gastrointestinal/Abdomen Exam: soft, No tenderness, No mass Back Exam: normal inspection, normal range of motion, No CVA tenderness, No vertebral tenderness Extremity Exam: normal inspection, normal range of motion, pelvis stable Neurologic Exam: alert, oriented x 3, cooperative, normal mood/affect, nml cerebellar function, sensation nml, No motor deficits Skin Exam: normal color, warm, dry SpO2: 96 - Course Nursing assessment & vital signs reviewed: Yes Ordered Tests: Active Orders 24 hr Category Date Time Status OBSTR/ACUTE ABDOMEN SERIES Stat Exams 08/02/19 10:15 Completed AMYLASE Stat Lab 08/02/19 10:26 Completed CBC W DIFF Stat Lab 08/02/19 10:26 Completed CMP Stat Lab 08/02/19 10:26 Completed LIPASE Stat Lab 08/02/19 10:26 Completed Lactic Acid Stat Lab 08/02/19 10:23 Completed UA W/RFX UR CULTURE Stat Lab 08/02/19 10:15 Completed Medication Summary Discontinued Medications Generic Name Dose Route Start Last Admin Trade Name Gerardo PRN Reason Stop Dose Admin Sodium Chloride 1,000 mls @ 999 mls/hr 08/02/19 10:14 08/02/19 12:19 Sodium Chloride 0.9% 1000 Ml IV 08/02/19 11:14 Infused .Q1H1M STA Infusion Sodium Chloride Confirm 08/02/19 10:28 Sodium Chloride 0.9% 1000 Ml Administered 08/02/19 10:29 Dose 1,000 mls @ ud .ROUTE .STK-MED ONE Sodium Chloride 1,000 mls @ 999 mls/hr 08/02/19 12:28 08/02/19 12:33 Sodium Chloride 0.9% 1000 Ml IV 08/02/19 13:28 999 mls/hr .Q1H1M STA Administration Sodium Chloride Confirm 08/02/19 12:32 Sodium Chloride 0.9% 1000 Ml Administered 08/02/19 12:33 Dose 1,000 mls @ ud .ROUTE .ST[place]ook-MED ONE Lab/Rad Data: Laboratory Result Diagrams 08/02/19 10:26 08/02/19 10:26 Laboratory Results 08/02/19 08/02/19 08/02/19 Range/Units 10:26 10:26 10:23 WBC 6.6 (4.0-10.5) K/mm3 RBC 5.31 (4.1-5.6) M/mm3 Hgb 16.6 (12.5-18.0) gm/dl Hct 49.5 (42-50) % MCV 93.2 (78-100) fl MCH 31.3 (26-32) pg MCHC 33.5 (32-36) g/dl RDW 12.9 (11.5-14.0) % Plt Count 210 (150-450) K/mm3 MPV 8.9 (6-9.5) fl Gran % 65.3 (36.0-66.0) % Eos # (Auto) 0.11 (0-0.5) Absolute Lymphs (auto) 1.31 (1.0-4.6) Absolute Monos (auto) 0.82 (0.0-1.3) Lymphocytes % 20.0 L (24.0-44.0) % Monocytes % 12.5 H (0.0-12.0) % Eosinophils % 1.7 (0.00-5.0) % Basophils % 0.5 (0.0-0.4) % Absolute Granulocytes 4.29 (1.4-6.9) Basophils # 0.03 (0-0.4) Sodium 141 (137-145) mmol/L Potassium 3.2 L (3.5-5.1) mmol/L Chloride 105 (98-107) mmol/L Carbon Dioxide 26 (22-30) mmol/L Anion Gap 13.1 (5-15) MEQ/L BUN 12 (9-20) mg/dL Creatinine 0.75 (0.66-1.25) mg/dL Estimated GFR > 60.0 ML/MIN Glucose 124 H (74-106) mg/dL Lactic Acid 1.2 (0.4-2.0) Calcium 8.7 (8.4-10.2) mg/dL Total Bilirubin 0.90 (0.2-1.3) mg/dL AST 35 (17-59) U/L ALT 32 (0-50) U/L Alkaline Phosphatase 57 (38-126) U/L Serum Total Protein 7.3 (6.3-8.2) g/dL Albumin 4.1 (3.5-5.0) g/dL Amylase 91 (30-110) U/L Lipase 80 (23-300) U/L Urine Color (YELLOW) Urine Appearance (CLEAR) Urine pH (5-6) Ur Specific Butler (1.005-1.025) Urine Protein (Negative) Urine Ketones (NEGATIVE) Urine Blood (0-5) David/ul Urine Nitrite (NEGATIVE) Urine Bilirubin (NEGATIVE) Urine Urobilinogen (0-1) mg/dL Ur Leukocyte Esterase (NEGATIVE) Urine WBC (Auto) (0-5) /HPF Urine RBC (Auto) (0-2) /HPF U Epithel Cells (Auto) (FEW) /HPF Urine Bacteria (Auto) (NEGATIVE) /HPF Urine Mucus (Auto) (NEGATIVE) /HPF Urine Culture Reflexed (NO) Urine Glucose (NEGATIVE) mg/dL 08/02/ Range/Units 10:15 WBC (4.0-10.5) K/mm3 RBC (4.1-5.6) M/mm3 Hgb (12.5-18.0) gm/dl Hct (42-50) % MCV (78-100) fl MCH (26-32) pg MCHC (32-36) g/dl RDW (11.5-14.0) % Plt Count (150-450) K/mm3 MPV (6-9.5) fl Gran % (36.0-66.0) % Eos # (Auto) (0-0.5) Absolute Lymphs (auto) (1.0-4.6) Absolute Monos (auto) (0.0-1.3) Lymphocytes % (24.0-44.0) % Monocytes % (0.0-12.0) % Eosinophils % (0.00-5.0) % Basophils % (0.0-0.4) % Absolute Granulocytes (1.4-6.9) Basophils # (0-0.4) Sodium (137-145) mmol/L Potassium (3.5-5.1) mmol/L Chloride (98-107) mmol/L Carbon Dioxide (22-30) mmol/L Anion Gap (5-15) MEQ/L BUN (9-20) mg/dL Creatinine (0.66-1.25) mg/dL Estimated GFR ML/MIN Glucose (74-106) mg/dL Lactic Acid (0.4-2.0) Calcium (8.4-10.2) mg/dL Total Bilirubin (0.2-1.3) mg/dL AST (17-59) U/L ALT (0-50) U/L Alkaline Phosphatase (38-126) U/L Serum Total Protein (6.3-8.2) g/dL Albumin (3.5-5.0) g/dL Amylase (30-110) U/L Lipase (23-300) U/L Urine Color YELLOW (YELLOW) Urine Appearance CLEAR (CLEAR) Urine pH 6.0 (5-6) Ur Specific Butler 1.009 (1.005-1.025) Urine Protein NEGATIVE (Negative) Urine Ketones NEGATIVE (NEGATIVE) Urine Blood SMALL (0-5) David/ul Urine Nitrite NEGATIVE (NEGATIVE) Urine Bilirubin NEGATIVE (NEGATIVE) Urine Urobilinogen NEGATIVE (0-1) mg/dL Ur Leukocyte Esterase NEGATIVE (NEGATIVE) Urine WBC (Auto) NONE (0-5) /HPF Urine RBC (Auto) NONE (0-2) /HPF U Epithel Cells (Auto) NONE (FEW) /HPF Urine Bacteria (Auto) NONE (NEGATIVE) /HPF Urine Mucus (Auto) SLIGHT (NEGATIVE) /HPF Urine Culture Reflexed NO (NO) Urine Glucose NEGATIVE (NEGATIVE) mg/dL - Progress Progress: improved Counseled pt/family regarding: lab results, diagnosis, rad results - Departure Departure Disposition: Home Clinical Impression: Gastroenteritis Condition: Stable Critical Care Time: No Referrals: ARIANA WESTFALL DO [Primary Care Provider] -
[2019-08-02 14:33] VITALS: BP 127/77; PULSE 74; O2SAT 97
[2019-08-04 14:55] LABS: Source: Feces
[2019-08-04 16:39] LABS: Giardia Antigen EIA Negative (Negative)
== END 2019-08-02 14:30 | disposition home or self-care (01) ==
LOC: ED 09:46
DX: K52.9 Noninfective gastroenteritis and colitis, unspecified (principal); Z79.899 Other long term (current) drug therapy
CPT/HCPCS: 36415; 74022; 80053; 81001; 82150; 83605; 83690; 85025; 87045; 87046; 87177; 87209; 87335; 87493; 96360; 99284

== ENCOUNTER 2021-09-07 11:36 | Emergency (ER) | payer MEDICARE ==
[2021-09-07] MEDS ORDERED: DUONEB 0.5-3 MG/3 ml Neb IH ONE ×2 (12:01→12:46)
[2021-09-07] MEDS ORDERED: TYLENOL 325 MG PO STA (12:03)
[2021-09-07 12:21] LABS: Absolute Neutrophil Ct (ANC) 7.37 (1.4-6.9); Basophil (Absolute #) 0.03 (0-0.4); Eosinophil % 0.1 % (0.00-5.0); Eosinophil (Absolute #) 0.01 (0-0.5); Hematocrit 53.7 % (42-50); Lymphocyte (Absolute #) 0.58 (1.0-4.6); Lymphocytes % 6.2 % (24.0-44.0); Mean Cell Volume 96.4 fl (78-100); Mean Corpuscular Hemoglobin 30.5 pg (26-32); Mean Corpuscular Hgb Concent. 31.7 g/dl (32-36); Mean Platelet Volume 9.3 fl (7.5-11.0); Neutrophil % 79.4 % (36.0-66.0); Platelet Count 198 K/mm3 (150-450); Red Blood Count 5.57 M/mm3 (4.1-5.6); Red Cell Distribution Width 13.3 % (11.5-14.0); White Blood Count 9.3 K/mm3 (4.0-10.5)
--- NOTE | 2021-09-07 12:22 | XRAY ---
Indication: Short of breath. Status post fall. Comparison: August 02, 2019. Portable chest unchanged again demonstrating COPD and minimal left base fibrosis/scarring. Heart not enlarged. Bony thorax intact again with mild osteopenia and degenerative changes. Impression: Continuing nonacute chest with chronic features.
[2021-09-07] MEDS ORDERED: TYLENOL 325 MG ONE (12:30)
--- NOTE | 2021-09-07 12:30 | ERPHSYRPT ---
- History of Present Illness Time Seen by Provider: 09/07/21 11:45 Source: patient, family Exam Limitations: no limitations Patient Subjective Stated Complaint: Pt fell 3 times yesterday and 2 times this morning, pt states that he didn't have any strength, this is a new problem Triage Nursing Assessment: Pt brought to the ER by EMS, tachycardic, febrile, hypertensive, tachypnic, denies pain, denies injury with falls, denies LOC, states that he didn't have the strength to get up, denies feeling sick, severe weakness in daniel legs, placed on 2L NC and oxygen is now at 99%, pulses normal, skin n/hot/dry Physician History: 76 years old male with history of hyperlipidemia, COPD presented in the ER via EMS with increasing generalized weakness fatigue and tiredness since yesterday with multiple falls. Patient reports he has chronic back pain and his legs gave away often and since yesterday he is feeling really weak and has fallen multiple times but denies hitting his head or loss of consciousness. He denies any fall related injuries or pain anywhere. Patient has a fever of 100.2 on presentation, mildly tachycardic, denies any chest pain palpitations or shortness of breath but oxygen saturation of 91% and placed on 2 L oxygen and currently 97%. Minimal nonproductive cough. Unvaccinated against COVID-19. Denies any known sick contact. Timing/Duration: yesterday, constant, gradual onset, worse Severity: moderate Modifying Factors: Worsens With: movement Associated Symptoms: fever, malaise, weakness, No nausea, No vomiting, No abdominal pain, No shortness of breath, No diaphoresis, No chest pain, No s yncope Allergies/Adverse Reactions: No Known Drug Allergies Allergy (Verified 09/07/21 11:55) Home Medications: ALPRAZolam 1 MG [Xanax 1 mg] 1 mg PO Q4HPRN PRN 08/22/17 [History] Rosuvastatin Calcium [Crestor] 10 mg PO DAILY 08/02/19 [History] Montelukast Sodium 10 mg [Singulair 10 MG] 10 mg PO DAILY 09/07/21 [History] Tamsulosin HCl 0.4 mg [Flomax 0.4 MG] 0.4 mg PO DAILY 09/07/21 [History] Hx Tetanus, Diphtheria Vaccination/Date Given: Yes (06/07/18) Hx Influenza Vaccination/Date Given: Yes (05/31/19) Hx Pneumococcal Vaccination/Date Given: Yes (2010) Travel Risk - International Travel Have you traveled outside of the country in past 3 weeks: No - Coronavirus Screening Are you exhibiting any of the following symptoms?: Yes Symptoms: Fever, Shortness of Breath Close contact with a COVID-19 positive Pt in past 14-21 Days: No - Vaccine Status Have you recieved a Covid-19 vaccination: No - Review of Systems Constitutional: Fever, Chills, Fatigue, Weakness Eyes: No Symptoms Ears, Nose, & Throat: No Symptoms Respiratory: Cough Cardiac: No Symptoms Abdominal/Gastrointestinal: No Symptoms Genitourinary Symptoms: No Symptoms Musculoskeletal: Myalgias Skin: No Symptoms Neurological: No Dizziness, No Focal Weakness, No Headache, No Parasthesia, No Sensory Changes, No Tremors Psychological: No Symptoms Endocrine: No Symptoms Hematologic/Lymphatic: No Symptoms Immunological/Allergic: No Symptoms - Past Medical History Pertinent Past Medical History: Yes Neurological History: No Pertinent History ENT History: Cataracts Cardiac History: No Pertinent History, High Cholesterol Respiratory History: COPD Endocrine Medical History: No Pertinent History Musculoskeletal History: No Pertinent History GI Medical History: Gallbladder Disease, Hemorrhoids History: No Pertinent History Psycho-Social History: No Pertinent History Male Reproductive Disorders: No Pertinent History - Past Surgical History Past Surgical History: Yes Neuro Surgical History: No Pertinent History Cardiac: No Pertinent History Respiratory: No Pertinent History Gastrointestinal: Cholecystectomy, Hemorrhoidectomy Genitourinary: No Pertinent History Musculoskeletal: No Pertinent History Male Surgical History: No Pertinent History Other Surgical History: hemrrhoid surgery. rt and left cataract - Social History Smoking Status: Never smoker Exposure to second hand smoke: No Drug Use: none Patient Lives Alone: No - Nursing Vital Signs Nursing Vital Signs: Initial Vital Signs Temperature 100.2 F 09/07/21 11:37 Pulse Rate 107 H 09/07/21 11:37 Respiratory Rate 30 H 09/07/21 11:37 Blood Pressure 156/94 09/07/21 11:37 O2 Sat by Pulse Oximetry 91 L 09/07/21 11:37 Pain Scale Pain Intensity 0 - Physical Exam General Appearance: no apparent distress, alert Eye Exam: PERRL/EOMI Ears, Nose, Throat Exam: normal ENT inspection, TMs normal, pharynx normal, moist mucous membranes Neck Exam: normal inspection, non-tender, supple, full range of motion Respiratory Exam: rhonchi, wheezing, No respiratory distress Cardiovascular Exam: normal heart sounds, tachycardia Gastrointestinal/Abdomen Exam: soft, normal bowel sounds, No tenderness Back Exam: normal inspection, normal range of motion, No CVA tenderness Extremity Exam: normal inspection, normal range of motion, pelvis stable Neurologic Exam: alert, oriented x 3, cooperative, cv rn II-XII nml as tested, normal mood/affect, sensation nml, No motor deficits Skin Exam: normal color SpO2 Interpretation: borderline oxygenation SpO2: 91 O2 Delivery: Room Air - Course EKG Interpreted by Me: RATE (102), Sinus Tach, Left [place] Deviation, LAFB, NORMAL INTERVALS, Non-specific ST Changes Ordered Tests: Active Orders 24 hr Category Date Time Status [employer] STAT Care 09/07/21 12:03 Active EKG-ER Only STAT Care 09/07/21 12:01 Active IV Insertion STAT Care 09/07/21 12:01 Active Oxygen-ED Only Nasal Cannula 2 lpm Care 09/07/21 12:01 Active CHEST 1 VIEW (PORTABLE) Stat Exams 09/07/21 12:03 Completed BLOOD CULTURE Stat Lab 09/07/21 11:45 Received CBC W DIFF Stat Lab 09/07/21 11:45 Completed CMP Stat Lab 09/07/21 11:45 Completed Lactic Acid Stat Lab 09/07/21 12:01 Completed Lactic Acid Stat Lab 09/07/21 15:18 Received MAGNESIUM Stat Lab 09/07/21 11:45 Completed NT PRO BNP Stat Lab 09/07/21 11:45 Completed TROPONIN Q3H Lab 09/08/21 00:15 Ordered TROPONIN Q3H Lab 09/07/21 12:15 Completed TROPONIN Q3H Lab 09/07/21 15:15 Ordered TROPONIN Q3H Lab 09/07/21 18:15 Ordered TROPONIN Q3H Lab 09/07/21 21:15 Ordered UA W/RFX UR CULTURE Stat Lab 09/07/21 13:15 Completed Respiratory Therapy Assessment DAILY RT 09/07/21 13:01 Completed Medication Summary Generic Name Dose Route Start Last Admin Trade Name Freq PRN Reason Stop Dose Admin Azithromycin 500 mg in 250 mls @ 250 mls/hr 09/07/21 14:34 09/07/21 15:18 Zithromax 500 Mg/ 250 Ml Nacl Premix IV 09/07/21 15:33 250 mls/hr STAT STA 250 mls/hr Administration Discontinued Medications Generic Name Dose Route Start Last Admin Trade Name Gerardo PRN Reason Stop Dose Admin Acetaminophen 650 mg 09/07/21 12:03 09/07/21 12:31 Acetaminophen 325 Mg Tablet PO 09/07/21 12:04 650 mg STAT STA Administration Acetaminophen Confirm 09/07/21 12:30 Acetaminophen 325 Mg Tablet Administered 09/07/21 12:31 Dose 650 mg .ROUTE .STK-MED ONE Albuterol/Ipratropium 3 ml 09/07/21 12:01 09/07/21 12:49 Ipratropium/Albuterol Sulfate 3 Ml Ampul.Neb IH 09/07/21 12:02 3 ml STAT ONE Administration Albuterol/Ipratropium Confirm 09/07/21 12:46 Ipratropium/Albuterol Sulfate 3 Ml Ampul.Neb Administered 09/07/21 12:47 Dose 3 ml IH .STK-MED ONE Methylprednisolone Sodium 0 mg 09/07/21 14:32 09/07/21 15:15 Succinate 125 mg/ Sterile IV 09/07/21 14:33 125 mg Water 2 ml STAT ONE Administration Sodium Chloride 500 mls @ 500 mls/hr 09/07/21 14:17 Sodium Chloride 0.9% 500 Ml IV 09/07/21 15:16 .Q1H ONE Ceftriaxone Sodium/Dextrose 2 g in 50 mls @ 100 mls/hr 09/07/21 14:34 09/07/21 15:17 Rocephin 2 Gm-D5w 50ml Bag IV 09/07/21 15:03 100 mls/hr STAT STA 100 mls/hr Administration Azithromycin Confirm 09/07/21 15:14 Zithromax 500 Mg/ 250 Ml Nacl Premix Administered 09/07/21 15:15 Dose 500 mg in 250 mls @ ud IV .STK-MED ONE Ceftriaxone Sodium/Dextrose Confirm 09/07/21 15:14 Rocephin 2 Gm-D5w 50ml Bag Administered 09/07/21 15:15 Dose 2 g in 50 mls @ ud IV .STK-MED ONE Methylprednisolone Sodium Succinate Confirm 09/07/21 15:14 Methylprednis Sod Succ 125 Mg/2 Ml Vial Administered 09/07/21 15:15 Dose 125 mg .ROUTE .STK-MED ONE Lab/Rad Data: Laboratory Result Diagrams 09/07/21 11:45 09/07/21 11:45 Laboratory Results 09/07/21 09/07/21 09/07/21 Range/Units 13:15 12:15 12:01 WBC (4.0-10.5) K/mm3 RBC (4.1-5.6) M/mm3 Hgb (12.5-18.0) gm/dl Hct (42-50) % MCV (78-100) fl MCH (26-32) pg MCHC (32-36) g/dl RDW (11.5-14.0) % Plt Count (150-450) K/mm3 MPV (7.5-11.0) fl Gran % (36.0-66.0) % Eos # (Auto) (0-0.5) Absolute Lymphs (auto) (1.0-4.6) Absolute Monos (auto) (0.0-1.3) Lymphocytes % (24.0-44.0) % Monocytes % (0.0-12.0) % Eosinophils % (0.00-5.0) % Basophils % (0.0-0.4) % Absolute Granulocytes (1.4-6.9) Basophils # (0-0.4) Sodium (137-145) mmol/L Potassium (3.5-5.1) mmol/L Chloride (98-107) mmol/L Carbon Dioxide (22-30) mmol/L Anion Gap (5-15) MEQ/L BUN (9-20) mg/dL Creatinine (0.66-1.25) mg/dL Estimated GFR ML/MIN Glucose (74-106) mg/dL Lactic Acid 2.4 H (0.4-2.0) Calcium (8.4-10.2) mg/dL Magnesium (1.6-2.3) mg/dL Total Bilirubin (0.2-1.3) mg/dL AST (17-59) U/L ALT (0-50) U/L Alkaline Phosphatase (38-126) U/L Troponin I < 0.012 (0.000-0.034) ng/mL NT-Pro-B Natriuret Pep (0-1800) pg/mL Serum Total Protein (6.3-8.2) g/dL Albumin (3.5-5.0) g/dL Urine Color YELLOW (YELLOW) Urine Appearance CLEAR (CLEAR) Urine pH 7.0 (5-6) Ur Specific Spangler 1.019 (1.005-1.025) Urine Protein 30 (Negative) Urine Ketones SMALL (NEGATIVE) Urine Blood NEGATIVE (0-5) David/ul Urine Nitrite NEGATIVE (NEGATIVE) Urine Bilirubin NEGATIVE (NEGATIVE) Urine Urobilinogen NEGATIVE (0-1) mg/dL Ur Leukocyte Esterase NEGATIVE (NEGATIVE) Urine WBC (Auto) 0-2 (0-5) /HPF Urine RBC (Auto) 16-25 (0-2) /HPF U Epithel Cells (Auto) NONE (FEW) /HPF Urine Bacteria (Auto) RARE (NEGATIVE) /HPF Urine Mucus (Auto) SLIGHT (NEGATIVE) /HPF Urine Culture Reflexed NO (NO) Urine Glucose NEGATIVE (NEGATIVE) mg/dL Slides for Path Review 09/07/21 09/07/21 Range/Units 11:45 11:45 WBC 9.3 (4.0-10.5) K/mm3 RBC 5.57 (4.1-5.6) M/mm3 Hgb 17.0 (12.5-18.0) gm/dl Hct 53.7 H (42-50) % MCV 96.4 (78-100) fl MCH 30.5 (26-32) pg MCHC 31.7 L (32-36) g/dl RDW 13.3 (11.5-14.0) % Plt Count 198 (150-450) K/mm3 MPV 9.3 (7.5-11.0) fl Gran % 79.4 H (36.0-66.0) % Eos # (Auto) 0.01 (0-0.5) Absolute Lymphs (auto) 0.58 L (1.0-4.6) Absolute Monos (auto) 1.30 (0.0-1.3) Lymphocytes % 6.2 L (24.0-44.0) % Monocytes % 14.0 H (0.0-12.0) % Eosinophils % 0.1 (0.00-5.0) % Basophils % 0.3 (0.0-0.4) % Absolute Granulocytes 7.37 H (1.4-6.9) Basophils # 0.03 (0-0.4) Sodium 138 (137-145) mmol/L Potassium 4.0 (3.5-5.1) mmol/L Chloride 102 (98-107) mmol/L Carbon Dioxide 25 (22-30) mmol/L Anion Gap 15.0 (5-15) MEQ/L BUN 11 (9-20) mg/dL Creatinine 0.89 (0.66-1.25) mg/dL Estimated GFR > 60.0 ML/MIN Glucose 102 (74-106) mg/dL Lactic Acid (0.4-2.0) Calcium 8.9 (8.4-10.2) mg/dL Magnesium 1.9 (1.6-2.3) mg/dL Total Bilirubin 0.90 (0.2-1.3) mg/dL AST 47 (17-59) U/L ALT 37 (0-50) U/L Alkaline Phosphatase 76 (38-126) U/L Troponin I (0.000-0.034) ng/mL NT-Pro-B Natriuret Pep 154 (0-1800) pg/mL Serum Total Protein 7.4 (6.3-8.2) g/dL Albumin 4.4 (3.5-5.0) g/dL Urine Color (YELLOW) Urine Appearance (CLEAR) Urine pH (5-6) Ur Specific Spang[place] (1.005-1.025) Urine Protein (Negative) Urine Ketones (NEGATIVE) Urine Blood (0-5) David/ul Urine Nitrite (NEGATIVE) Urine Bilirubin (NEGATIVE) Urine Urobilinogen (0-1) mg/dL Ur Leukocyte Esterase (NEGATIVE) Urine WBC (Auto) (0-5) /HPF Urine RBC (Auto) (0-2) /HPF U Epithel Cells (Auto) (FEW) /HPF Urine Bacteria (Auto) (NEGATIVE) /HPF Urine Mucus (Auto) (NEGATIVE) /HPF Urine Culture Reflexed (NO) Urine Glucose (NEGATIVE) mg/dL Slides for Path Review YES - Progress Progress: re-examined Progress Note: 09/07/21 15:22 76 years old is evaluated for generalized weakness fatigue and fall. Patient was borderline hypoxic, placed on 2 L oxygen with sats around 97%. Given DuoNeb and steroids along with fluids. Has normal white count, grossly unremarkable chemistries. No definitive UTI. Chest x-ray showed chronic features consistent with COPD. Patient is unvaccinated, could have COVID-19 along with COPD exacerbation worsening generalized weakness. I have recommended IV antibiotics and admission but patient does not want to stay in the hospital. He and his are adamant about not getting COVID-19 test are staying in the hospital and wants to leave. They do understand that risk of delaying the diagnosis, worsening of condition including full-blown pneumonia, respiratory failure leading to but still want to leave. I have discussed with Dr. Juares who knows patient very well, recommended obtaining Covid test and observation admission. I have also offered him to be placed in isolation if he does not want to be Covid tested but he does not want to stay at all. When oxygen is taken off his saturation is around 91% at resting. Patient states "I have a friend/next-door neighbor who has oxygen on I will borrow from him". I would give him a short course of steroid and Z-Beto and recommended continue with inhalers. Outpatient follow-up. He is advised to call 911 or return to ER for any worsening which and voiced understanding Discussed with Dr.: Christ Counseled pt/family regarding: lab results, diagnosis, need for follow-up, rad results - Departure Departure Disposition: AMA Clinical Impression: COPD exacerbation, Generalized weakness, Frequent falls Condition: Stable Critical Care Time: No Referrals: ARIANA WESTFALL DO [Primary Care Provider] - Follow Up with PCP/3 days Instructions: Chronic Obstructive Pulmonary Disease, Preventing Falls, Exacerbation of COPD (DC) Additional Instructions: Use your inhalers as recommended. Follow-up with primary care for reevaluation early next week. Return to ER for worsening generalized weakness, increasing fall, difficulty breathing etc. Prescriptions: Prednisone 20 mg [Deltasone 20 mg] 60 mg PO DAILY 5 Days #15 tablet Azithromycin 250 mg [Zithromax 250 MG TABLET] 250 mg PO ZPACK #6 tablet
[2021-09-07 12:43] LABS: ALBUMIN 4.4 g/dL (3.5-5.0); ALKALINE PHOSPHATASE 76 U/L (38-126); BLOOD UREA NITROGEN 11 mg/dL (9-20); CHLORIDE 102 mmol/L (98-107); Calcium 8.9 mg/dL (8.4-10.2); Carbon Dioxide 25 mmol/L (22-30); Creatinine 1 0.89 mg/dL (0.66-1.25); EST GLOMERULAR FILTRATION RATE > 60.0 ML/MIN; Glucose 102 mg/dL (74-106); MAGNESIUM 1.9 mg/dL (1.6-2.3); NT PRO BNP 154 pg/mL (0-1800); SGOT/AST 47 U/L (17-59); SGPT/ALT 37 U/L (0-50); SODIUM 138 mmol/L (137-145); Total Protein 7.4 g/dL (6.3-8.2)
[2021-09-07 12:59] LABS: Slide Review 1 YES
[2021-09-07 14:11] LABS: Appearance CLEAR (CLEAR); Bacteria RARE /HPF (NEGATIVE); Bilirubin NEGATIVE (NEGATIVE); Blood NEGATIVE Ery/ul (0-5); Glucose NEGATIVE (NEGATIVE); Ketones SMALL (NEGATIVE); Leukocyte Esterase NEGATIVE (NEGATIVE); Mucus SLIGHT /HPF (NEGATIVE); Nitrite NEGATIVE (NEGATIVE); Protein,Urine Dip 30 (Negative); Specific Gravity 1.019 (1.005-1.025); Urobilinogen NEGATIVE mg/dL (0-1); WBC 0-2 /HPF (0-5)
[2021-09-07] MEDS ORDERED: Sodium Chloride 0.9% 500 ML 500 ML IV ONE (14:17)
[2021-09-07] MEDS ORDERED: solu-MEDROL 125 MG, Sterile H2O 10 ml 2 ML IV ONE ×2 (14:32)
[2021-09-07] MEDS ORDERED: ROCEPHIN 2 Gm-D5w 50ML BAG** 2 G/50 ML IVPB IV STA (14:34)
[2021-09-07] MEDS ORDERED: Zithromax 500 MG/ 250 ML NaCl Premix 500 MG/250 ML IVPB IV STA (14:34)
[2021-09-07 15:09] VITALS: BP 138/79; PULSE 91; O2SAT 91
[2021-09-07] MEDS ORDERED: ROCEPHIN 2 Gm-D5w 50ML BAG** 2 G/50 ML IVPB IV ONE (15:14)
[2021-09-07] MEDS ORDERED: solu-MEDROL ONE (15:14)
[2021-09-07] MEDS ORDERED: Zithromax 500 MG/ 250 ML NaCl Premix 500 MG/250 ML IVPB IV ONE (15:14)
== END 2021-09-07 16:56 | disposition home or self-care (01) ==
LOC: ED 11:36
DX: J44.1 Chronic obstructive pulmonary disease with (acute) exacerbation (principal); R53.1 Weakness; Z91.81 History of falling; R51.9 Headache, unspecified; R00.0 Tachycardia, unspecified; E78.5 Hyperlipidemia, unspecified; R09.02 Hypoxemia; Z79.52 Long term (current) use of systemic steroids; Z79.899 Other long term (current) drug therapy
CPT/HCPCS: 36000; 36415; 71045; 80053; 81001; 83605; 83735; 83880; 84484; 85025; 87040; 93005; 93041; 94640; 96365; 96374; 96375; 99285; J0456; J0696; J2930; A9270-GY

== ENCOUNTER 2021-09-17 11:04 | Inpatient (IN) | payer MEDICARE ==
[2021-09-17] MEDS ORDERED: Sodium Chloride 0.9% 1000 ML 1,000 ML IV SCH (11:30)
--- NOTE | 2021-09-17 11:48 | ERPHSYRPT ---
- History of Present Illness Time Seen by Provider: 09/17/21 11:10 Source: patient Exam Limitations: no limitations Patient Subjective Stated Complaint: PT states "I have been weak for the past couple of days. I just do not feel well." Triage Nursing Assessment: Pt presnted alert and oriented X 3, skin wpd Pt ambualtes with a slow gait, able to speak in clear full sentences pt slightly tachypneic, low o2 sats on room air. Physician History: Patient is a 76-year-old male presents to our ED for evaluation of generalized weakness and overall feeling unwell. Symptoms have been ongoing for at least 4 days. I spoke to patient's primary care doctor. She advised that patient had a positive blood culture. Patient was empirically treated with Rocephin. In light of patient's ongoing symptoms she is requesting patient have a septic work-up. No associated chest pain. Patient has a history of COPD. He does not require oxygen use. Upon arrival patient was hypoxic. Patient denies nausea vomiting. No diaphoresis. No rash. Patient states he is unable to sleep. He does not give an explanation. Patient unable to eat. Patient states he has no appetite. Patient voices no other complaints or concerns at this time. Timing/Duration: day(s) (4 days) Severity: moderate Modifying Factors: Improves With: nothing Associated Symptoms: denies symptoms Allergies/Adverse Reactions: azithromycin [From Zithromax] Allergy (Unknown, Verified 09/17/21 11:13) Pt stated he is unsure of the reaction but states he has one to this medication. ceftriaxone Allergy (Unknown, Verified 09/17/21 11:13) Pt stated he is unsure of the reaction but states he has one to this medication. prednisone Allergy (Unknown, Verified 09/17/21 11:13) Pt stated he is unsure of the reaction but states he has one to this medication. Home Medications: Rosuvastatin Calcium [Crestor] 10 mg PO DAILY 08/02/19 [History] Tamsulosin HCl 0.4 mg [Flomax 0.4 MG] 0.4 mg PO DAILY 09/07/21 [History] ALPRAZolam 1 MG [Xanax 1 mg] 1 mg PO DAILY 09/17/21 [History] Aspirin [Aspirin EC] 81 mg PO DAILY 09/17/21 [History] Hx Tetanus, Diphtheria Vaccination/Date Given: Yes (06/07/18) Hx Influenza Vaccination/Date Given: Yes (05/31/19) Hx Pneumococcal Vaccination/Date Given: Yes (2010) Immunizations Up to Date: Yes Travel Risk - International Travel Have you traveled outside of the country in past 3 weeks: No - Coronavirus Screening Are you exhibiting any of the following symptoms?: Yes Symptoms: Cough: New Onset - Vaccine Status Have you recieved a Covid-19 vaccination: No - Review of Systems Constitutional: No Symptoms, No Fever, No Chills Eyes: No Symptoms Ears, Nose, & Throat: No Symptoms Respiratory: No Symptoms, No Cough, No Dyspnea Cardiac: No Symptoms, No Chest Pain, No Edema, No Syncope Abdominal/Gastrointestinal: No Symptoms, No Abdominal Pain, No Nausea, No Vomiting, No Diarrhea Genitourinary Symptoms: No Symptoms, No Dysuria Musculoskeletal: No Symptoms, No Back Pain, No Neck Pain Skin: No Symptoms, No Rash Neurological: No Symptoms, No Dizziness, No Focal Weakness, No Sensory Changes Psychological: No Symptoms Endocrine: No Symptoms Hematologic/Lymphatic: No Symptoms Immunological/Allergic: No Symptoms All Other Systems: Reviewed and Negative - Past Medical History Pertinent Past Medical History: Yes Neurological History: No Pertinent History ENT History: Cataracts Cardiac History: No Pertinent History, High Cholesterol Respiratory History: COPD Endocrine Medical History: No Pertinent History Musculoskeletal History: No Pertinent History GI Medical History: Gallbladder Disease, Hemorrhoids History: No Pertinent History Psycho-Social History: No Pertinent History Male Reproductive Disorders: No Pertinent History - Past Surgical History Past Surgical History: Yes Neuro Surgical History: No Pertinent History Cardiac: No Pertinent History Respiratory: No Pertinent History Gastrointestinal: Cholecystectomy, Hemorrhoidectomy Genitourinary: No Pertinent History Musculoskeletal: No Pertinent History Male Surgical History: No Pertinent History Other Surgical History: hemrrhoid surgery. rt and left cataract - Social History Smoking Status: Never smoker Exposure to second hand smoke: No Drug Use: none Patient Lives Alone: No - Nursing Vital Signs Nursing Vital Signs: Initial Vital Signs Temperature 98.4 F 09/17/21 11:05 Pulse Rate 91 H 09/17/21 11:05 Respiratory Rate 24 09/17/21 11:05 Blood Pressure 144/71 09/17/21 11:05 O2 Sat by Pulse Oximetry 83 L 09/17/21 11:05 Pain Scale Pain Intensity 0 - Physical Exam General Appearance: no apparent distress, alert Eye Exam: PERRL/EOMI, eyes nml inspection Ears, Nose, Throat Exam: normal ENT inspection, TMs normal, pharynx normal, moist mucous membranes Neck Exam: normal inspection, non-tender, supple, full range of motion Respiratory Exam: normal breath sounds, lungs clear, airway intact, No respirato ry distress Cardiovascular Exam: regular rate/rhythm, normal heart sounds, normal peripheral pulses Gastrointestinal/Abdomen Exam: soft, normal bowel sounds, No tenderness, No mass Back Exam: normal inspection, normal range of motion, No CVA tenderness, No vertebral tenderness Extremity Exam: normal inspection, normal range of motion, pelvis stable Neurologic Exam: alert, oriented x 3, cooperative, normal mood/affect, sensation nml, No motor deficits Skin Exam: normal color, warm, dry, No rash Lymphatic Exam: No adenopathy SpO2 Interpretation: normal SpO2: 83 O2 Delivery: Room Air - Course Nursing assessment & vital signs reviewed: Yes - Radiology Exams Chest X-ray Interpretation: Teleradiologist Report (Bilateral interstitial opacities) - Radiology Ultrasound Exam Gallbladder Ultrasound: discussed w/radiologist (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 Otherwise negative/unremarkable ultrasound. No CBD stone.), Other Ordered Tests: Active Orders 24 hr Category Date Time Status IV Insertion STAT Care 09/17/21 11:25 Active Pulse Oximetry (ED) STAT Care 09/17/21 11:25 Active CHEST 1 VIEW (PORTABLE) Stat Exams 09/17/21 11:47 Completed GALLBLADDER [US] Stat Exams 09/17/21 12:34 Completed BLOOD CULTURE Stat Lab 09/17/21 11:42 Received CBC W DIFF Stat Lab 09/17/21 11:42 Completed CMP Stat Lab 09/17/21 11:42 Completed LIPASE Stat Lab 09/17/21 12:36 Completed Lactic Acid Stat Lab 09/17/21 11:55 Completed UA W/RFX UR CULTURE Stat Lab 09/17/21 11:25 Ordered Respiratory Therapy Assessment DAILY RT 09/17/21 12:29 Active Transfer Order Routine Transfer 09/17/21 Ordered Medication Summary Generic Name Dose Route Start Last Admin Trade Name Freq PRN Reason Stop Dose Admin Enoxaparin Sodium 40 mg 09/17/21 13:55 Enoxaparin Sodium 40 Mg/0.4 Ml Syringe SQ 09/17/21 13:56 STAT ONE Sodium Chloride 1,000 mls @ 100 mls/hr 09/17/21 11:30 09/17/21 11:39 Sodium Chloride 0.9% 1000 Ml IV 10/17/21 11:29 100 mls/hr .Q10H WILLIAM Administration Piperacillin Sod/Tazobactam 100 mls @ 200 mls/hr 09/17/21 18:00 Sod 3.375 gm/ Sodium Chloride IV 09/20/21 17:59 Q6HT WILLIAM Discontinued Medications Generic Name Dose Route Start Last Admin Trade Name Freq PRN Reason Stop Dose Admin Albuterol/Ipratropium 3 ml 09/17/21 12:15 09/17/21 12:27 Ipratropium/Albuterol Sulfate 3 Ml Ampul.Neb IH 09/17/21 12:16 3 ml STAT ONE Administration Albuterol/Ipratropium Confirm 09/17/21 12:23 Ipratropium/Albuterol Sulfate 3 Ml Ampul.Neb Administered 09/17/21 12:24 Dose 3 ml IH .STK-MED ONE Calcium Gluconate 1,000 mg 09/17/21 12:33 09/17/21 12:35 Calcium Gluconate 1000 Mg/10 Ml Vial IV 09/17/21 12:34 1,000 mg STAT ONE Administration Calcium Gluconate Confirm 09/17/21 12:35 Calcium Gluconate 1000 Mg/10 Ml Vial Administered 09/17/21 12:36 Dose 1,000 mg IV .STK-MED ONE Vancomycin HCl 1 gm in 200 mls @ 125 mls/hr 09/17/21 12:16 09/17/21 12:34 Vancomycin 1 Gram/200 Ml Bag IV 09/17/21 13:51 125 mls/hr STAT ONE 125 mls/hr Administration Vancomycin HCl Confirm 09/17/21 12:33 Vancomycin 1 Gram/200 Ml Bag Administered 09/17/21 12:34 Dose 1 gm in 200 mls @ ud IV .STK-MED ONE Lab/Rad Data: Laboratory Result Diagrams 09/17/21 11:42 09/17/21 11:42 Laboratory Results 09/17/21 09/17/21 09/17/21 Range/Units Unknown 12:36 12:32 WBC (4.0-10.5) K/mm3 RBC (4.1-5.6) M/mm3 Hgb (12.5-18.0) gm/dl Hct (42-50) % MCV (78-100) fl MCH (26-32) pg MCHC (32-36) g/dl RDW (11.5-14.0) % Plt Count (150-450) K/mm3 MPV (7.5-11.0) fl Gran % (36.0-66.0) % Eos # (Auto) (0-0.5) Absolute Lymphs (auto) (1.0-4.6) Absolute Monos (auto) (0.0-1.3) Lymphocytes % (24.0-44.0) % Monocytes % (0.0-12.0) % Eosinophils % (0.00-5.0) % Basophils % (0.0-0.4) % Absolute Granulocytes (1.4-6.9) Basophils # (0-0.4) Sodium (137-145) mmol/L Potassium (3.5-5.1) mmol/L Chloride (98-107) mmol/L Carbon Dioxide (22-30) mmol/L Anion Gap (5-15) MEQ/L BUN (9-20) mg/dL Creatinine (0.66-1.25) mg/dL Estimated GFR ML/MIN Glucose (74-106) mg/dL Lactic Acid (0.4-2.0) Calcium (8.4-10.2) mg/dL Total Bilirubin (0.2-1.3) mg/dL AST (17-59) U/L ALT (0-50) U/L Alkaline Phosphatase (38-126) U/L Serum Total Protein (6.3-8.2) g/dL Albumin (3.5-5.0) g/dL Lipase 113 (23-300) U/L Influenza Type A Ag NEGATIVE (NEGATIVE) Influenza Type B Ag NEGATIVE (NEGATIVE) RSV (PCR) NEGATIVE (Negative) SARS-CoV-2 (PCR) POSITIVE A (NEGATIVE) Group A Strep Antibody NOT DETECTED (NEGATIVE) 09/17/21 09/17/21 09/17/21 Range/Units 11:55 11:42 11:42 WBC 8.6 (4.0-10.5) K/mm3 RBC 5.62 H (4.1-5.6) M/mm3 Hgb 17.1 (12.5-18.0) gm/dl Hct 55.7 H (42-50) % MCV 99.1 (78-100) fl MCH 30.4 (26-32) pg MCHC 30.7 L (32-36) g/dl RDW 14.3 H (11.5-14.0) % Plt Count 134 L (150-450) K/mm3 MPV 9.8 (7.5-11.0) fl Gran % 85.1 H (36.0-66.0) % Eos # (Auto) 0.02 (0-0.5) Absolute Lymphs (auto) 0.62 L (1.0-4.6) Absolute Monos (auto) 0.63 (0.0-1.3) Lymphocytes % 7.2 L (24.0-44.0) % Monocytes % 7.3 (0.0-12.0) % Eosinophils % 0.2 (0.00-5.0) % Basophils % 0.2 (0.0-0.4) % Absolute Granulocytes 7.30 H (1.4-6.9) Basophils # 0.02 (0-0.4) Sodium 133 L (137-145) mmol/L Potassium 3.7 (3.5-5.1) mmol/L Chloride 95 L (98-107) mmol/L Carbon Dioxide 28 (22-30) mmol/L Anion Gap 14.2 (5-15) MEQ/L BUN 18 (9-20) mg/dL Creatinine 0.80 (0.66-1.25) mg/dL Estimated GFR > 60.0 ML/MIN Glucose 82 (74-106) mg/dL Lactic Acid 1.2 (0.4-2.0) Calcium 8.0 L (8.4-10.2) mg/dL Total Bilirubin 1.70 H (0.2-1.3) mg/dL AST 163 H (17-59) U/L ALT 187 H (0-50) U/L Alkaline Phosphatase 53 (38-126) U/L Serum Total Protein 7.2 (6.3-8.2) g/dL Albumin 3.9 (3.5-5.0) g/dL Lipase (23-300) U/L Influenza Type A Ag (NEGATIVE) Influenza Type B Ag (NEGATIVE) RSV (PCR) (Negative) SARS-CoV-2 (PCR) (NEGATIVE) Group A Strep Antibody (NEGATIVE) - Progress Progress: improved Progress Note: Solu-Medrol not administered. Patient allergic to prednisone 09/17/21 12:14 Patient reassessed. He feels much better. Patient is COVID-positive. Patient is hypoxic. Chest x-ray positive for COVID-pneumonia. Case discussed with Dr. Todd who accepts admission to observation. Patient received a dose of Lovenox in our ED. We will hold off on Decadron at this time due to patient's allergy to steroid. Plan of care discussed with patient. He agrees to admission at [facility] for further evaluation and treatment. 09/17/21 13:57 Counseled pt/family regarding: lab results, diagnosis, rad results - Departure Departure Disposition: Observation Clinical Impression: Hypoxia, COPD exacerbation, Hyponatremia, Hypocalcemia, Transaminitis, Total bilirubin, elevated, SARS-CoV-2 positive, Pneumonia due to COVID-19 virus Condition: Stable Critical Care Time: No Referrals: ARIANA WESTFALL DO [Primary Care Provider] - Follow up/PCP as directed Instructions: Chronic Obstructive Pulmonary Disease
[2021-09-17 12:13] LABS: Basophil (Absolute #) 0.02 (0-0.4); Eosinophil % 0.2 % (0.00-5.0); Eosinophil (Absolute #) 0.02 (0-0.5); Hematocrit 55.7 % (42-50); Hemoglobin 17.1 gm/dl (12.5-18.0); Lymphocyte (Absolute #) 0.62 (1.0-4.6); Lymphocytes % 7.2 % (24.0-44.0); Mean Cell Volume 99.1 fl (78-100); Mean Corpuscular Hemoglobin 30.4 pg (26-32); Mean Corpuscular Hgb Concent. 30.7 g/dl (32-36); Mean Platelet Volume 9.8 fl (7.5-11.0); Monocyte (Absolute #) 0.63 (0.0-1.3); Monocytes % 7.3 % (0.0-12.0); Neutrophil % 85.1 % (36.0-66.0); Platelet Count 134 K/mm3 (150-450); Red Blood Count 5.62 M/mm3 (4.1-5.6); Red Cell Distribution Width 14.3 % (11.5-14.0); White Blood Count 8.6 K/mm3 (4.0-10.5)
[2021-09-17] MEDS ORDERED: DUONEB 0.5-3 MG/3 ml Neb IH ONE ×2 (12:15→12:23)
[2021-09-17] MEDS ORDERED: VANCOMYCIN 1 GRAM/200 ML BAG 1 GM/200 ML PIGGYBACK IV ONE ×2 (12:16→12:33)
--- NOTE | 2021-09-17 12:19 | XRAY ---
Indication: Pneumonia. Comparison: September 07, 2021. Portable chest again demonstrates COPD with new bibasilar interstitial alveolar opacities. No consolidation/large effusion. Heart not enlarged. Bony thorax intact again with osteopenia and degenerative changes.
[2021-09-17 12:22] LABS: ALBUMIN 3.9 g/dL (3.5-5.0); ALKALINE PHOSPHATASE 53 U/L (38-126); ANION GAP 14.2 MEQ/L (5-15); BLOOD UREA NITROGEN 18 mg/dL (9-20); CHLORIDE 95 mmol/L (98-107); Carbon Dioxide 28 mmol/L (22-30); EST GLOMERULAR FILTRATION RATE > 60.0 ML/MIN; Glucose 82 mg/dL (74-106); Potassium 3.7 mmol/L (3.5-5.1); SGOT/AST 163 U/L (17-59); SGPT/ALT 187 U/L (0-50); SODIUM 133 mmol/L (137-145); Total Protein 7.2 g/dL (6.3-8.2)
[2021-09-17] MEDS ORDERED: Calcium Gluconate 10% 1000 MG IV ONE ×2 (12:33→12:35)
[2021-09-17 13:12] LABS: INFLUENZA A NEGATIVE (NEGATIVE); INFLUENZA B NEGATIVE (NEGATIVE); RESPIRATORY SYNCTIAL VIRUS NEGATIVE (Negative)
--- NOTE | 2021-09-17 13:16 | XRAY ---
Indication: Elevated bilirubin. Transaminitis. Cholecystitis. Two-dimensional gallbladder sonogram performed. Comparison: None Gallbladder surgically absent. Common bile duct measures 3.8 mm. No intrahepatic biliary distention. Visualized liver appears small with micronodular margins as seen with cirrhosis. No free fluid. Visualized pancreas sonographically unremarkable. Right kidney measures 11.4 cm in length with a few cysts, largest 5.4 cm. No solid renal mass or hydronephrosis. Impression: 1. Cholecystectomy and right renal cysts. 2. Query cirrhosis.
[2021-09-17 13:28] LABS: SARS-CoV-2 Xpert Express POSITIVE (NEGATIVE)
[2021-09-17] MEDS ORDERED: ENOXAPARIN SODIUM SQ ONE ×2 (13:55→13:57)
[2021-09-17] MEDS ORDERED: MORPHINE SULFATE 4 MG INJ IV PRN (14:16)
[2021-09-17 15:22] LABS: Appearance SLIGHTLY CLOUDY (CLEAR); Bacteria RARE /HPF (NEGATIVE); Bilirubin NEGATIVE (NEGATIVE); Blood MODERATE Ery/ul (0-5); Glucose NEGATIVE (NEGATIVE); Ketones MODERATE (NEGATIVE); Leukocyte Esterase NEGATIVE (NEGATIVE); Mucus SLIGHT /HPF (NEGATIVE); Nitrite NEGATIVE (NEGATIVE); Protein,Urine Dip 30 (Negative); RBC 26-50 /HPF (0-2); Specific Gravity 1.024 (1.005-1.025); Urobilinogen 2 mg/dL (0-1)
[2021-09-17] MEDS ORDERED: Ativan 2 MG/1 ML VIAL IV PRN (17:24)
[2021-09-17] MEDS ORDERED: TYLENOL EXTRA STRENGTH 500 MG PO PRN (17:27)
[2021-09-17] MEDS ORDERED: Zofran 4 MG/2 ML VIAL IV PRN (17:27)
[2021-09-17] MEDS ORDERED: HYDROCODONE-CHLORPHEN ER SUSP PO PRN (17:28)
[2021-09-17] MEDS ORDERED: REMDESIVIR 200 MG in Sodium Chloride 0.9% 250 ML 250 ML IV ONE (17:30)
[2021-09-17] MEDS ORDERED: Zosyn 3.375 GM Vial 3.375 GM in Sodium Chloride 100ML MINI-BAG PLUS 100 ML IV SCH (18:00)
[2021-09-17] MEDS: Flomax 0.4 MG PO SCH (18:14)
[2021-09-17] MEDS: ZOCOR 20MG PO SCH (18:18)
[2021-09-17] MEDS: ECOTRIN 81 MG PO SCH (18:18)
[2021-09-17] MEDS: XANAX 1 MG PO SCH (21:34)
[2021-09-18 05:32] LABS: Basophil (Absolute #) 0.01 (0-0.4); Eosinophil % 0.5 % (0.00-5.0); Eosinophil (Absolute #) 0.05 (0-0.5); Hematocrit 48.7 % (42-50); Lymphocyte (Absolute #) 0.77 (1.0-4.6); Lymphocytes % 7.6 % (24.0-44.0); Mean Cell Volume 94.2 fl (78-100); Mean Corpuscular Hemoglobin 30.9 pg (26-32); Mean Corpuscular Hgb Concent. 32.9 g/dl (32-36); Mean Platelet Volume 9.4 fl (7.5-11.0); Monocyte (Absolute #) 0.57 (0.0-1.3); Monocytes % 5.6 % (0.0-12.0); Neutrophil % 86.2 % (36.0-66.0); Red Blood Count 5.17 M/mm3 (4.1-5.6); Red Cell Distribution Width 13.9 % (11.5-14.0); White Blood Count 10.1 K/mm3 (4.0-10.5)
[2021-09-18 05:41] LABS: Platelet Count 189 K/mm3 (150-450)
[2021-09-18 06:19] LABS: ALBUMIN 3.3 g/dL (3.5-5.0); ALKALINE PHOSPHATASE 56 U/L (38-126); ANION GAP 11.6 MEQ/L (5-15); BLOOD UREA NITROGEN 15 mg/dL (9-20); CHLORIDE 101 mmol/L (98-107); Calcium 7.7 mg/dL (8.4-10.2); Carbon Dioxide 27 mmol/L (22-30); Creatinine 1 0.65 mg/dL (0.66-1.25); EST GLOMERULAR FILTRATION RATE > 60.0 ML/MIN; Glucose 94 mg/dL (74-106); Potassium 3.5 mmol/L (3.5-5.1); SGOT/AST 139 U/L (17-59); SGPT/ALT 158 U/L (0-50); SODIUM 136 mmol/L (137-145); Total Protein 6.1 g/dL (6.3-8.2)
--- NOTE | 2021-09-18 08:30 | HP ---
CHIEF COMPLAINT: Weakness, loss of appetite, severe weakness. HISTORY OF PRESENT ILLNESS: The patient is a 76-year-old male who got feeling like this approximately a week ago. He was in the emergency room and was started on some antibiotics, given a shot of Kenalog. I assume his test for COVID was negative. He has gotten worse and returned to the emergency room where test for COVID was positive. His chest x-ray showed bilateral infiltrates. He kind of denied being short of breath. Apparently he had some positive blood cultures from his primary doctor. He was empirically started with Rocephin. He denies any chest pain, denies any fever or chills. Just weakness and unable to sleep for a while that was probably maybe related to injection of Kenalog he got. He has very few complaints. I have known Dejuan Matias for probably 30 years. He is always a very quiet gentleman, pale and he looks chronically ill which is his usual state. However, he is not usually chronically ill. Apparently he did have a reaction to Rocephin or Zithromax but he really could not say what it was, he just felt bad and that was last week and he was also getting prednisone so that could have kept him from sleeping. TRAVEL RISK: None out of the country. CORONAVIRUS SCREENING: VACCINES: He did not get the COVID vaccine. He did get a flu vaccine three years ago and pneumococcal pneumonia vaccine last year. MEDICATIONS: Crestor, Flomax, Xanax 1 mg h.s., aspirin 81 q.d. ALLERGIES: AZITHROMYCIN FROM ZITHROMAX. CEFTRIAXONE. PREDNISONE. PAST MEDICAL HISTORY: Cataracts. Chronic obstructive pulmonary disease. PAST SURGICAL HISTORY: Cataract. Cholecystectomy. Hemorrhoid surgery. REVIEW OF SYSTEMS: CONSTITUTIONAL: No fever. No chills. HEENT: Eyes no problems. No sore throat. RESPIRATORY: He says he is not short of breath although he is hypoxic now in the 80's with exertion. CVS: I do not think he has ever had a heart attack although he is on cholesterol medication. : He does have some problems urinating. He takes Flomax for it. He states he occasionally gets blood in his urine. PSYCH: No symptoms. He is just really quiet, not to emotional gentleman. SOCIAL HISTORY: for many years, has one daughter I think probably still lives at home. He does not smoke or drink. PHYSICAL EXAMINATION: The patient is alert, orientated, pleasant, looks chronically ill but he usually looks that way. VITAL SIGNS: Temperature 98F, pulse 90, respirations 24, blood pressure 144/71. O2 83% in the emergency room all on room air. Pain intensity 0. HEENT: Normal. NECK: Supple without adenopathy. CHEST: Few crackles. CVS: No murmurs or gallops. ABDOMEN: No tenderness. Normal bowel sounds. Scar from cholecystectomy. LAB DATA AND TESTS: His white count is low as expected at 5,000. I see no signs of sepsis from COVID. His hemoglobin was 17, PLT count 1 34,000. Lactic acid was normal 1.2. IMPRESSION: The patient COVID bilateral pneumonia with hypoxia, lack of appetite, hypoxia. PLAN: The patient will be started on the usual COVID medicines including Decadron. I think his reactions which might have been from prednisone could be over reacted with more of a benzo with his lung situation Decadron is definitely indicated. PROGNOSIS: Guarded.
[2021-09-18] MEDS: OLUMIANT PO SCH (09:28)
[2021-09-18] MEDS: ENOXAPARIN SODIUM SQ SCH (09:28)
[2021-09-18] MEDS: ZOCOR 20MG PO SCH (09:28)
[2021-09-18] MEDS: Flomax 0.4 MG PO SCH (09:28)
[2021-09-18] MEDS: ECOTRIN 81 MG PO SCH (09:28)
[2021-09-18] MEDS: DECADRON 10MG INJ. IV SCH (09:28)
[2021-09-18] MEDS: REMDESIVIR 100 MG in Sodium Chloride 0.9% 100 ML BAG 100 ML IV SCH (09:53)
[2021-09-18] MEDS ORDERED: NON-FORMULARY ITEM (Rosuvastatin Calcium [Crestor] 10 MG Tablet) PO SCH (10:00)
[2021-09-18] MEDS ORDERED: XANAX 1 MG PO SCH (10:00)
[2021-09-18] MEDS: BACTRIM DS TABLET PO SCH ×2 (14:15→22:08)
[2021-09-18] MEDS: Ativan 1 MG PO PRN (16:17)
[2021-09-18] MEDS: XANAX 1 MG PO SCH (22:08)
[2021-09-19] MEDS: ECOTRIN 81 MG PO SCH (09:50)
[2021-09-19] MEDS: OLUMIANT PO SCH (09:50)
[2021-09-19] MEDS: ZOCOR 20MG PO SCH (09:50)
[2021-09-19] MEDS: ENOXAPARIN SODIUM SQ SCH (09:51)
[2021-09-19] MEDS: DECADRON 10MG INJ. IV SCH (09:51)
[2021-09-19] MEDS: BACTRIM DS TABLET PO SCH ×2 (09:51→21:15)
[2021-09-19] MEDS: Flomax 0.4 MG PO SCH (09:51)
[2021-09-19] MEDS: REMDESIVIR 100 MG in Sodium Chloride 0.9% 100 ML BAG 100 ML IV SCH (09:52)
[2021-09-19 13:11] LABS: HBsAg Screen Negative (Negative); Hep A Ab, IgM Negative (Negative); Hep B Core Ab, IgM Negative (Negative); Hep C Virus Ab <0.1 s/co ratio (0.0-0.9)
[2021-09-19] MEDS ORDERED: VENTOLIN COMMON CANISTER IH PRN (19:31)
[2021-09-19] MEDS: Advair Hfa 230/21 Mcg COMMON CANISTER IH SCH (19:44)
[2021-09-19] MEDS: XANAX 1 MG PO SCH (21:15)
[2021-09-20 05:59] LABS: Hematocrit 46.6 % (42-50); Hemoglobin 15.2 gm/dl (12.5-18.0); Mean Cell Volume 94.3 fl (78-100); Mean Corpuscular Hemoglobin 30.8 pg (26-32); Mean Corpuscular Hgb Concent. 32.6 g/dl (32-36); Mean Platelet Volume 9.2 fl (7.5-11.0); Platelet Count 266 K/mm3 (150-450); Red Blood Count 4.94 M/mm3 (4.1-5.6); Red Cell Distribution Width 13.1 % (11.5-14.0); White Blood Count 15.7 K/mm3 (4.0-10.5)
[2021-09-20] MEDS: Advair Hfa 230/21 Mcg COMMON CANISTER IH SCH ×2 (07:15→19:15)
--- NOTE | 2021-09-20 08:40 | CONS ---
Events noted. Chart reviewed. CONSULT DATE: 09/19/2021 REASON FOR CONSULT: Evaluation of shortness of breath, hypoxia. HISTORY: Dejuan Matias is a 76-year-old male with history of chronic obstructive pulmonary disease by virtue of smoking, who has been hospitalized with complaints of shortness of breath. The patient has required incremental increase in supplemental oxygen. He is currently being treated with currently acceptable therapy including baricitinib and Remdesivir as well as steroids and bronchodilators. At the time of my evaluation, the patient is on Oxymizer. He is able to carry out a conversation and he reportedly states that he feels "80% better". He has never been diagnosed with any pulmonary problems. He is somewhat of a poor historian as well. PAST MEDICAL HISTORY: Positive for history of anxiety, smoking and chronic obstructive pulmonary disease. The patient also has history of dyslipidemia. PAST SURGICAL HISTORY: Cataracts. Cholecystectomy. Hemorrhoid surgery. PERSONAL AND SOCIAL HISTORY: He lives with his . MEDICATIONS: Medications are reviewed. ALLERGIES: AZITHROMYCIN. CEFTRIAXONE. PREDNISONE. PHYSICAL EXAMINATION: This is an elderly male who appears weak and tired but able to carry out a conversation. VITAL SIGNS: Vital signs noted. Saturating 97%. HEENT: Normocephalic. Oral exam limited. NECK: Supple. CVS: First and second heart sounds are normal, regular, rhythmic. RESPIRATORY: Shows diminished breath sounds, posterior basilar crackles are heard. ABDOMEN: Soft. EXTREMITIES: No edema is noted. LABORATORY DATA AND TESTS: Labs reviewed. X-rays noted as well. ASSESSMENT: This is a 76-year-old male admitted with: 1) Acute severe hypoxic respiratory failure. 2) COVID-19 with viral pneumonia. 3) Underlying chronic obstructive pulmonary disease. 4) Nicotine addiction. RECOMMENDATIONS: 1) I reassured patient that he is currently being treated with appropriate line of therapy for what is considered as standard of care as of today. 2) Continue deep vein thrombosis prophylaxis. If hypoxemia worsens he may need increase in dose of Lovenox with therapeutic and/or switching to Eliquis. 3) Hoping to improve oxygenation. 4) Advised postural therapy. 5) I will be available and continue to follow. Thank you, Dr. Silva, for allowing me to participate in the care of your patient.
[2021-09-20] MEDS: ECOTRIN 81 MG PO SCH (09:00)
[2021-09-20] MEDS: ENOXAPARIN SODIUM SQ SCH (09:00)
[2021-09-20] MEDS: REMDESIVIR 100 MG in Sodium Chloride 0.9% 100 ML BAG 100 ML IV SCH (09:00)
[2021-09-20] MEDS: DECADRON 10MG INJ. IV SCH (09:01)
[2021-09-20] MEDS: ZOCOR 20MG PO SCH (09:01)
[2021-09-20] MEDS: Flomax 0.4 MG PO SCH (09:01)
[2021-09-20] MEDS: Ativan 1 MG PO PRN ×2 (09:01→14:14)
[2021-09-20] MEDS: OLUMIANT PO SCH (09:01)
[2021-09-20] MEDS: BACTRIM DS TABLET PO SCH ×2 (09:02→21:44)
[2021-09-20 14:13] LABS: A-aADO2 400; ABG HEMOGLOBIN 15.7; ABG POTASSIUM 3.3 (3.5-5.1); ARTERIAL BLD GAS O2 SATURATION 92.8 % (95-100); ARTERIAL BLOOD GAS BASE EXCESS 2.4 (-2.0-2.0); ARTERIAL BLOOD GAS FIO2 70 %; ARTERIAL BLOOD GAS PCO2 32 mmHg (35-45); ARTERIAL BLOOD GAS PO2 59 mmHg (75-100); ARTERIAL BLOOD GAS VENT MODE OXYMIZER 13L; CARBOXYHEMOGLOBIN 0.9 % THgb (0.0-6.9); HGB O2 SAT 90.9 g/dF (94-100); Methhemoglobin 1.1 % (1.4-1.5)
[2021-09-20 14:14] LABS: ABG SITE RRA; ALLEN TEST OK? YES
--- NOTE | 2021-09-20 15:33 | PROG NOTE ---
Events noted. Chart reviewed. DATE: 09/20/2021 HISTORY: The patient is resting comfortable but does report feeling "a lot better". PHYSICAL EXAMINATION: Vital signs reviewed. HEENT: Normocephalic. Oral exam limited. CVS: First and second heart sounds are normal, regular, rhythmic. RESPIRATORY: Shows diminished breath sounds. Crackles are heard. ABDOMEN: Soft. EXTREMITIES: No edema is noted. LABORATORY DATA AND TESTS: Labs reviewed. ASSESSMENT: This is a 76-year-old male admitted with: 1) Acute hypoxic respiratory failure tolerating Oxymizer well. 2) COVID-19 with viral pneumonia. 3) Likely underlying chronic obstructive pulmonary disease. 4) Nicotine addiction. RECOMMENDATIONS: The patient appears to be doing well. Advised to continue present therapy. Will continue to follow. Discussed with Dr. Silva.
[2021-09-20] MEDS: XANAX 1 MG PO SCH (21:44)
[2021-09-21] MEDS: PATIENT OWN MEDICATION IH SCH ×2 (07:05→23:34)
--- NOTE | 2021-09-21 08:39 | XRAY ---
Indication: Covid 19 pneumonia. Comparison: September 17, 2021. Portable chest again hyperinflated with bibasilar interstitial alveolar opacities now minimally consolidated on the left without large effusion. Heart and mediastinal structures within normal limits. No new cardiopulmonary abnormalities.
[2021-09-21 09:09] LABS: Hematocrit 48.8 % (42-50); Mean Cell Volume 93.8 fl (78-100); Mean Corpuscular Hemoglobin 30.8 pg (26-32); Mean Corpuscular Hgb Concent. 32.8 g/dl (32-36); Mean Platelet Volume 8.9 fl (7.5-11.0); Platelet Count 305 K/mm3 (150-450); Red Cell Distribution Width 13.1 % (11.5-14.0); White Blood Count 15.6 K/mm3 (4.0-10.5)
[2021-09-21 09:25] LABS: ALBUMIN 2.8 g/dL (3.5-5.0); ALKALINE PHOSPHATASE 55 U/L (38-126); ANION GAP 10.6 MEQ/L (5-15); BLOOD UREA NITROGEN 17 mg/dL (9-20); CHLORIDE 106 mmol/L (98-107); Calcium 7.6 mg/dL (8.4-10.2); Carbon Dioxide 25 mmol/L (22-30); Creatinine 1 0.68 mg/dL (0.66-1.25); EST GLOMERULAR FILTRATION RATE > 60.0 ML/MIN; Glucose 127 mg/dL (74-106); Potassium 3.5 mmol/L (3.5-5.1); SGOT/AST 82 U/L (17-59); SGPT/ALT 153 U/L (0-50); SODIUM 138 mmol/L (137-145); Total Protein 5.2 g/dL (6.3-8.2)
[2021-09-21] MEDS: ECOTRIN 81 MG PO SCH (10:13)
[2021-09-21] MEDS: ENOXAPARIN SODIUM SQ SCH (10:13)
[2021-09-21] MEDS: Flomax 0.4 MG PO SCH (10:13)
[2021-09-21] MEDS: ZOCOR 20MG PO SCH (10:13)
[2021-09-21] MEDS: REMDESIVIR 100 MG in Sodium Chloride 0.9% 100 ML BAG 100 ML IV SCH (10:14)
[2021-09-21] MEDS: DECADRON 10MG INJ. IV SCH (10:14)
[2021-09-21] MEDS: OLUMIANT PO SCH (10:14)
[2021-09-21] MEDS: BACTRIM DS TABLET PO SCH ×2 (10:14→21:17)
[2021-09-21] MEDS: Advair Hfa 230/21 Mcg COMMON CANISTER IH SCH (19:40)
[2021-09-21] MEDS: XANAX 1 MG PO SCH (21:18)
[2021-09-22] MEDS: Ativan 1 MG PO PRN ×2 (02:30→17:38)
[2021-09-22 04:22] LABS: A-aADO2 589; ABG HEMOGLOBIN 15.4; ABG POTASSIUM 3.9 (3.5-5.1); ARTERIAL BLD GAS O2 SATURATION 97.8 % (95-100); ARTERIAL BLOOD GAS BASE EXCESS 2.7 (-2.0-2.0); ARTERIAL BLOOD GAS FIO2 100 %; ARTERIAL BLOOD GAS PCO2 36 mmHg (35-45); ARTERIAL BLOOD GAS PO2 79 mmHg (75-100); ARTERIAL BLOOD GAS pH 7.47 (7.35-7.45); HCO3- 26.2 (22-28); HGB O2 SAT 95.5 g/dF (94-100); Methhemoglobin 1.4 % (1.4-1.5)
[2021-09-22 04:23] LABS: ABG SITE LEFT RADIAL; ALLEN TEST OK? YES
[2021-09-22 06:17] LABS: Hemoglobin 15.4 gm/dl (12.5-18.0); Mean Cell Volume 93.6 fl (78-100); Mean Corpuscular Hemoglobin 30.7 pg (26-32); Mean Corpuscular Hgb Concent. 32.8 g/dl (32-36); Platelet Count 316 K/mm3 (150-450); Red Blood Count 5.02 M/mm3 (4.1-5.6); Red Cell Distribution Width 13.3 % (11.5-14.0); White Blood Count 18.3 K/mm3 (4.0-10.5)
[2021-09-22 06:41] LABS: ANION GAP 8.6 MEQ/L (5-15); Potassium 3.8 mmol/L (3.5-5.1)
[2021-09-22] MEDS: Advair Hfa 230/21 Mcg COMMON CANISTER IH SCH ×2 (07:45→20:00)
[2021-09-22] MEDS: PATIENT OWN MEDICATION IH SCH (08:48)
[2021-09-22] MEDS: OLUMIANT PO SCH (10:37)
[2021-09-22] MEDS: ECOTRIN 81 MG PO SCH (10:37)
[2021-09-22] MEDS: ENOXAPARIN SODIUM SQ SCH (10:37)
[2021-09-22] MEDS: DECADRON 10MG INJ. IV SCH (10:37)
[2021-09-22] MEDS: ZOCOR 20MG PO SCH (10:38)
[2021-09-22] MEDS: BACTRIM DS TABLET PO SCH ×2 (10:38→21:06)
[2021-09-22] MEDS: Flomax 0.4 MG PO SCH (10:38)
[2021-09-22] MEDS: XANAX 1 MG PO SCH (21:06)
[2021-09-23 05:45] LABS: A-aADO2 583; ABG HEMOGLOBIN 16.4; ABG POTASSIUM 4.4 (3.5-5.1); ARTERIAL BLD GAS O2 SATURATION 99.1 % (95-100); ARTERIAL BLOOD GAS BASE EXCESS 3.6 (-2.0-2.0); ARTERIAL BLOOD GAS FIO2 100 %; ARTERIAL BLOOD GAS PCO2 26 mmHg (35-45); ARTERIAL BLOOD GAS PO2 98 mmHg (75-100); CARBOXYHEMOGLOBIN 6.4 % THgb (0.0-6.9); HCO3- 24.4 (22-28); HGB O2 SAT 91.5 g/dF (94-100); Methhemoglobin 1.3 % (1.4-1.5)
[2021-09-23 05:46] LABS: ABG SITE LEFT RADIAL; ALLEN TEST OK? YES; ARTERIAL BLOOD GAS pH 7.58 (7.35-7.45)
[2021-09-23 06:54] LABS: Mean Corpuscular Hgb Concent. 32.7 g/dl (32-36); Mean Platelet Volume 9.8 fl (7.5-11.0); Platelet Count 312 K/mm3 (150-450); Red Blood Count 5.16 M/mm3 (4.1-5.6); Red Cell Distribution Width 13.6 % (11.5-14.0); White Blood Count 16.8 K/mm3 (4.0-10.5)
[2021-09-23 07:36] LABS: ANION GAP 12.7 MEQ/L (5-15)
[2021-09-23 08:04] LABS: Potassium 4.6 mmol/L (3.5-5.1)
[2021-09-23] MEDS: Advair Hfa 230/21 Mcg COMMON CANISTER IH SCH ×2 (08:25→20:19)
--- NOTE | 2021-09-23 08:32 | XRAY ---
Indication: Covid 19 pneumonia. Comparison: September 21, 2021. Portable chest unchanged again hyperinflated with bibasilar interstitial alveolar opacities. Remaining heart and upper lungs unremarkable. No new cardiopulmonary abnormalities.
[2021-09-23] MEDS: PATIENT OWN MEDICATION IH SCH (10:01)
[2021-09-23] MEDS: BACTRIM DS TABLET PO SCH ×2 (10:10→21:23)
[2021-09-23] MEDS: ENOXAPARIN SODIUM SQ SCH (10:11)
[2021-09-23] MEDS: ECOTRIN 81 MG PO SCH (10:11)
[2021-09-23] MEDS: OLUMIANT PO SCH (10:11)
[2021-09-23] MEDS: Flomax 0.4 MG PO SCH (10:11)
[2021-09-23] MEDS: DECADRON 10MG INJ. IV SCH (10:11)
[2021-09-23] MEDS: ZOCOR 20MG PO SCH (10:12)
[2021-09-23] MEDS ORDERED: FEOSOL 325 MG PO SCH (13:00)
[2021-09-23] MEDS ORDERED: Mylicon 80MG PO PRN (19:43)
[2021-09-23] MEDS ORDERED: IMODIUM 2 MG PO PRN (19:59)
[2021-09-23] MEDS ORDERED: Tums EX 750 MG PO PRN (21:16)
[2021-09-23] MEDS: XANAX 1 MG PO SCH (21:23)
[2021-09-23] MEDS: Tums EX 750 MG PO PRN (21:24)
[2021-09-24] MEDS: Tums EX 750 MG PO PRN ×3 (00:24→22:02)
[2021-09-24] MEDS: Ativan 1 MG PO PRN (00:24)
[2021-09-24 06:07] LABS: Hemoglobin 17.1 gm/dl (12.5-18.0); Mean Cell Volume 92.4 fl (78-100); Mean Corpuscular Hgb Concent. 33.5 g/dl (32-36); Mean Platelet Volume 9.2 fl (7.5-11.0); Platelet Count 424 K/mm3 (150-450); Red Blood Count 5.52 M/mm3 (4.1-5.6); Red Cell Distribution Width 13.4 % (11.5-14.0); White Blood Count 17.2 K/mm3 (4.0-10.5)
[2021-09-24 06:07] LABS: A-aADO2 574; ABG HEMOGLOBIN 17.8; ABG POTASSIUM 4.9 (3.5-5.1); ARTERIAL BLD GAS O2 SATURATION 99.2 % (95-100); ARTERIAL BLOOD GAS BASE EXCESS 4.3 (-2.0-2.0); ARTERIAL BLOOD GAS FIO2 100 %; ARTERIAL BLOOD GAS PCO2 26 mmHg (35-45); ARTERIAL BLOOD GAS PO2 107 mmHg (75-100); HCO3- 24.9 (22-28); HGB O2 SAT 91.2 g/dF (94-100); Methhemoglobin 1.1 % (1.4-1.5)
[2021-09-24 06:08] LABS: ABG SITE LEFT RADIAL; ALLEN TEST OK? YES; ARTERIAL BLOOD GAS pH 7.59 (7.35-7.45)
[2021-09-24] MEDS ORDERED: Pepcid 20 MG ONE (06:18)
[2021-09-24] MEDS: MAALOX ES 30 ML UNIT DOSE PO PRN (06:19)
[2021-09-24] MEDS: Pepcid 20 MG PO SCH ×2 (06:19→22:02)
[2021-09-24] MEDS: Advair Hfa 230/21 Mcg COMMON CANISTER IH SCH ×2 (08:09→19:43)
--- NOTE | 2021-09-24 09:40 | PROG NOTE ---
DATE: 09/21/2021 HISTORY: Dejuan Matias is a 76-year-old male hospitalized with hypoxic respiratory failure. He remains on high flow oxygen. He is awake, able to carry on a conversation, appears weak but denies any other acute symptoms. Despite lack of improvement in oxygenation, he does report feeling "better". PHYSICAL EXAMINATION: Vital signs reviewed. He is saturating 100% on high flow oxygen. HEENT: Normocephalic. Oral exam limited. CVS: First and second heart sounds are normal, regular, rhythmic. RESPIRATORY: Shows diminished breath sounds. Basilar crackles are heard. ABDOMEN: Soft. LABORATORY DATA AND TESTS: Labs reviewed. ASSESSMENT: This is a 76-year-old male admitted with: 1) Acute severe hypoxic respiratory failure. 2) COVID-19 with viral pneumonia likely underlying obstructive airways disease. RECOMMENDATIONS: 1) Continue present treatment. 2) Repeat chest x-ray in next one to two days. 3) The patient is being treated with Remdesivir and Olumiant. Await improvement in oxygenation, continue anticoagulation. I will continue to follow.
[2021-09-24] MEDS: ENOXAPARIN SODIUM SQ SCH (10:45)
[2021-09-24] MEDS: ECOTRIN 81 MG PO SCH (10:45)
[2021-09-24] MEDS: Flomax 0.4 MG PO SCH (10:45)
[2021-09-24] MEDS: DECADRON 10MG INJ. IV SCH (10:45)
[2021-09-24] MEDS: BACTRIM DS TABLET PO SCH ×2 (10:45→22:02)
[2021-09-24] MEDS: ZOCOR 20MG PO SCH (10:46)
[2021-09-24] MEDS: OLUMIANT PO SCH (10:46)
[2021-09-24] MEDS ORDERED: Ativan 1 MG PO ONE (22:00)
[2021-09-24] MEDS: XANAX 1 MG PO SCH (23:37)
[2021-09-25] MEDS: Advair Hfa 230/21 Mcg COMMON CANISTER IH SCH ×2 (05:35→19:30)
[2021-09-25 06:19] LABS: Hemoglobin 18.4 gm/dl (12.5-18.0); Mean Cell Volume 92.4 fl (78-100); Mean Corpuscular Hemoglobin 30.9 pg (26-32); Mean Corpuscular Hgb Concent. 33.5 g/dl (32-36); Mean Platelet Volume 9.7 fl (7.5-11.0); Platelet Count 412 K/mm3 (150-450); Red Blood Count 5.95 M/mm3 (4.1-5.6); Red Cell Distribution Width 13.6 % (11.5-14.0); White Blood Count 17.4 K/mm3 (4.0-10.5)
[2021-09-25 06:52] LABS: ANION GAP 16.6 MEQ/L (5-15); Potassium 5.3 mmol/L (3.5-5.1)
--- NOTE | 2021-09-25 09:13 | PROG NOTE ---
DATE: 09/24/2021 HISTORY: The patient is in normal short of breath. He is on about 10 liters on high flow situation. He desaturates when he gets up. He has a nonproductive cough. No GI symptoms. He states he feels good and is going home. He is not usually this hard to deal with. I tried to explain that we cannot get him oxygen at the level he needs and he will probably never be able to get home with his bilateral pneumonia. He told me his x-ray was better and it was actually no change so I finally called his . She will be calling him up. They have been forever. She wears the pants in the house. Basically, he has had bilateral COVID pneumonia. He has a little bit of cirrhosis from past alcohol abuse. He has not drank in twenty years. He is a reasonable fellow but he was up all night last night with heartburn which is probably made things worse. He also smokes some and he has not had any nicotine for a while. At this time, I did tell them that they can walk him in the [place] without his oxygen just to not drop him on his head to prove to him that he is not ready to go home and I think [place] will help take care of the rest. IMPRESSION: He has severe bilateral COVID pneumonia stable.
[2021-09-25] MEDS: ECOTRIN 81 MG PO SCH (10:42)
[2021-09-25] MEDS: BACTRIM DS TABLET PO SCH ×2 (10:42→21:37)
[2021-09-25] MEDS: ENOXAPARIN SODIUM SQ SCH (10:42)
[2021-09-25] MEDS: DECADRON 10MG INJ. IV SCH (10:42)
[2021-09-25] MEDS: Flomax 0.4 MG PO SCH (10:43)
[2021-09-25] MEDS: Pepcid 20 MG PO SCH ×2 (10:43→21:36)
[2021-09-25] MEDS: ZOCOR 20MG PO SCH (10:43)
[2021-09-25] MEDS: OLUMIANT PO SCH (10:43)
--- NOTE | 2021-09-25 13:07 | PCM.DS ---
Discharge Summary Date of Admission: 09/17/21 17:24 Admitting Physician: DAVID LAWRENCE Consults: Consults on Case 09/19/21 10:22 Consult Pulmonology ROUTINE Primary Care Provider: ARIANA WESTFALL DO Allergies Allergies azithromycin [From Zithromax] Allergy (Unknown, Verified 09/17/21 11:13) Pt stated he is unsure of the reaction but states he has one to this medication. ceftriaxone Allergy (Unknown, Verified 09/17/21 11:13) Pt stated he is unsure of the reaction but states he has one to this medication. prednisone Allergy (Unknown, Verified 09/17/21 11:13) Pt stated he is unsure of the reaction but states he has one to this medication. Hospital Summary - Hospital Course Hospital Course: Chief Complaint Diagnosis Covid, Hypoxia, Weakness Allergies Allergy/AdvReac Type Severity Reaction Status Date / Time azithromycin [From Zithromax] Allergy Unknown Verified 09/17/21 11:13 ceftriaxone Allergy Unknown Verified 09/17/21 11:13 prednisone Allergy Unknown Verified 09/17/21 11:13 Vital Signs (Last 24 hours) Temp Pulse Resp BP Pulse Ox 09/25/21 12:00 98.3 F 103 H 34 H 119/71 91 L 09/25/21 11:00 102 H 19 92 L 09/25/21 10:00 98 H 18 91 L 09/25/21 09:00 105 H 19 89 L 09/25/21 08:00 21 09/25/21 07:52 85 23 87 L 09/25/21 06:54 98.5 F 112 H 23 112/63 87 L 09/25/21 05:35 100 H 15 89 L 09/25/21 05:32 99 H 14 88 L 09/25/21 05:00 79 22 95 09/25/21 04:00 98.3 F 98 H 20 109/68 90 L 09/25/21 03:00 93 H 22 91 L 09/25/21 02:00 76 21 90 L 09/25/21 01:00 110 H 26 H 85 L 09/24/21 23:55 89 17 95 09/24/21 22:59 98.6 F 107 H 16 143/86 87 L 09/24/21 22:00 20 09/24/21 21:50 94 H 20 90 L 09/24/21 20:34 101 H 20 91 L 09/24/21 20:00 20 09/24/21 19:58 97.5 F 105 H 20 124/75 89 L 09/24/21 19:43 101 H 20 89 L 09/24/21 19:00 95 H 20 88 L 09/24/21 18:00 95 H 20 89 L 09/24/21 17:00 104 H 20 90 L 09/24/21 16:00 24 09/24/21 15:40 98.0 F 117 H 26 H 136/82 90 L 09/24/21 15:00 100 H 18 91 L 09/24/21 14:00 102 H 18 88 L Home Medications Medication Instructions Recorded Confirmed Last Taken Type ALPRAZolam 1 MG [Xanax 1 mg] 1 mg PO DAILY 09/17/21 09/17/21 Unknown History Aspirin [Aspirin EC] 81 mg PO DAILY 09/17/21 09/17/21 Unknown History Current Medications Generic Name Dose Route Start Last Admin Trade Name Freq PRN Reason Stop Dose Admin Acetaminophen 1,000 mg 09/17/21 17:27 Acetaminophen 500 Mg Tablet PO 10/17/21 17:26 Q4HPRN PRN ORAL TEMP >100.4 Al Hydrox/Mg Hydrox/Simethicone 30 ml 09/24/21 06:07 09/24/21 06:19 Mag Hydrox/Al Hydrox/Simeth 30 Ml Udcup PO 10/24/21 06:06 30 ml Q2H PRN PRN Administration INDIGESTION Albuterol Sulfate 4 puff 09/19/21 19:31 Albuterol Common Canister Inhaler IH 10/19/21 19:30 Q4H PRN PRN SHORTNESS OF BREATH/WHEEZING Alprazolam 1 mg 09/17/21 22:00 09/24/21 23:37 Alprazolam 1 Mg Tablet PO 10/17/21 21:59 1 mg HS WILLIAM Administration Aspirin 81 mg 09/17/21 18:00 09/25/21 10:42 Aspirin 81 Mg Tablet.Ec PO 10/17/21 17:59 81 mg DAILY WILLIAM Administration Baricitinib 2 mg 09/18/21 10:00 09/25/21 10:43 Baricitinib 2 Mg Tablet PO 10/01/21 10:01 2 mg DAILY WILLIAM Administration Calcium Carbonate/Glycine 1,500 mg 09/23/21 21:18 09/24/21 22:02 Calcium Carbonate 750 Mg 750 Mg Tab.Chew PO 10/23/21 21:15 1,500 mg Q2H PRN PRN Administration GERD Chlorphenir/Hydrocodone Polistirex 5 ml 09/17/21 17:28 Hydrocodone/Chlorphen P-Stirex 1 Ml Tessie.Er.12h PO 10/17/21 17:27 [id number] PRN Dexamethasone Sodium Phosphate 8 mg 09/18/21 10:00 09/25/21 10:42 Dexamethasone Sod Phosphate 10 Mg/Ml IV 10/18/21 09:59 8 mg DAILY WILLIAM Administration Enoxaparin Sodium 60 mg 09/21/21 10:00 09/25/21 10:42 Enoxaparin Sodium 60 Mg/0.6 Ml Syringe SQ 10/21/21 09:59 60 mg DAILY WILLIAM Administration Famotidine 20 mg 09/24/21 10:00 09/25/21 10:43 Famotidine 20 Mg Tablet PO 10/24/21 09:59 20 mg BID WILLIAM Administration Lorazepam 1 mg 09/17/21 17:24 09/24/21 00:24 Lorazepam 1 Mg Tablet PO 10/17/21 17:23 1 mg Q4HPRN PRN Administration ANXIETY/SLEEP Lorazepam 1 mg 09/17/21 17:24 Lorazepam 2 Mg/1 Ml 2 Mg Vial IV 10/17/21 17:23 Q4HPRN PRN ANXIETY/SLEEP Ondansetron HCl 4 mg 09/17/21 17:27 Ondansetron Hcl 4 Mg/2 Ml Vial IV 10/17/21 17:26 Q6HPRN PRN NAUSEA/VOMITING Fluticasone/Salmeterol 2 puff 09/21/21 19:00 09/25/21 05:35 Fluticasone/Salmeterol / Common Canister IH 10/21/21 18:59 2 puff BIDRT WILLIAM Administration Simethicone 80 mg 09/23/21 19:43 09/23/21 21:23 Simethicone 80 Mg Tab.Chew PO 10/23/21 19:42 80 mg QID PRN PRN Administration Gas Pain Simvastatin 20 mg 09/17/21 18:00 09/25/21 10:43 Simvastatin 20 Mg Tablet PO 10/17/21 17:59 20 mg DAILY WILLIAM Administration Tamsulosin HCl 0.4 mg 09/17/21 18:00 09/25/21 10:43 Tamsulosin Hcl 0.4 Mg Cap PO 10/17/21 17:59 0.4 mg DAILY WILLIAM Administration Trimethoprim/Sulfamethoxazole 1 tab 09/18/21 14:00 09/25/21 10:42 Smz/Tmp Ds Tablet 1 Tablet PO 10/18/21 13:59 1 tab BID WILLIAM Administration Discontinued Medications Generic Name Dose Route Start Last Admin Trade Name Freq PRN Reason Stop Dose Admin Albuterol/Ipratropium 3 ml 09/17/21 12:15 09/17/21 12:27 Ipratropium/Albuterol Sulfate 3 Ml Ampul.Neb IH 09/17/21 12:16 3 ml STAT ONE Administration Albuterol/Ipratropium Confirm 09/17/21 12:23 Ipratropium/Albuterol Sulfate 3 Ml Ampul.Neb Administered 09/17/21 12:24 Dose 3 ml IH .STK-MED ONE Alprazolam 1 mg 09/18/21 10:00 Alprazolam 1 Mg Tablet PO 10/18/21 09:59 DAILY WILLIAM Calcium Carbonate/Glycine 750 mg 09/23/21 21:16 Calcium Carbonate 750 Mg 750 Mg Tab.Chew PO 10/23/21 21:15 Q2H PRN PRN GERD Calcium Gluconate 1,000 mg 09/17/21 12:33 09/17/21 12:35 Calcium Gluconate 1000 Mg/10 Ml Vial IV 09/17/21 12:34 1,000 mg STAT ONE Administration Calcium Gluconate Confirm 09/17/21 12:35 Calcium Gluconate 1000 Mg/10 Ml Vial Administered 09/17/21 12:36 Dose 1,000 mg IV .STK-MED ONE Enoxaparin Sodium 40 mg 09/17/21 13:55 09/17/21 13:57 Enoxaparin Sodium 40 Mg/0.4 Ml Syringe SQ 09/17/21 13:56 40 mg STAT ONE Administration Enoxaparin Sodium Confirm 09/17/21 13:57 Enoxaparin Sodium 80 Mg/0.8 Ml Syringe Administered 09/17/21 13:58 Dose 80 mg SQ .STK-MED ONE Enoxaparin Sodium 40 mg 09/18/21 10:00 09/20/21 09:00 Enoxaparin Sodium 40 Mg/0.4 Ml Syringe SQ 10/18/21 09:59 40 mg DAILY WILLIAM Administration Famotidine Confirm 09/24/21 06:18 Famotidine 20 Mg Tablet Administered 09/24/21 06:19 Dose 20 mg .ROUTE .STK-MED ONE Sodium Chloride 1,000 mls @ 100 mls/hr 09/17/21 11:30 09/17/21 11:39 Sodium Chloride 0.9% 1000 Ml IV 10/17/21 11:29 100 mls/hr .Q10H WILLIAM Administration Vancomycin HCl 1 gm in 200 mls @ 125 mls/hr 09/17/21 12:16 09/17/21 12:34 Vancomycin 1 Gram/200 Ml Bag IV 09/17/21 13:51 125 mls/hr STAT ONE 125 mls/hr Administration Piperacillin Sod/Tazobactam 100 mls @ 200 mls/hr 09/17/21 18:00 Sod 3.375 gm/ Sodium Chloride IV 09/20/21 17:59 Q6HT WILLIAM Vancomycin HCl Confirm 09/17/21 12:33 Vancomycin 1 Gram/200 Ml Bag Administered 09/17/21 12:34 Dose 1 gm in 200 mls @ ud IV .STK-MED ONE Remdesivir 200 mg/ Sodium 250 mls @ 125 mls/hr 09/17/21 17:30 09/17/21 18:14 Chloride IV 09/17/21 19:29 125 mls/hr ONCE ONE Administration Remdesivir 100 mg/ Sodium 100 mls @ 100 mls/hr 09/18/21 10:00 09/21/21 10:14 Chloride IV 09/21/21 10:59 100 mls/hr DAILY WILLIAM Administration Loperamide HCl 2 mg 09/23/21 19:59 Loperamide Hcl 2 Mg Capsule PO 10/23/21 19:58 PRN PRN DIARRHEA Lorazepam 2 mg 09/24/21 22:00 09/24/21 22:01 Lorazepam 1 Mg Tablet PO 09/24/21 22:01 2 mg STAT ONE Administration Morphine Sulfate 4 mg 09/17/21 14:16 Morphine Sulfate 4 Mg/Ml Injection IV 09/22/21 14:15 Q4H PRN PRN PAIN Patient Own Med : 2 each 09/21/21 07:00 09/23/21 10:01 Symbicort IH 10/21/21 06:59 Not Given BIDRT WILLIAM Fluticasone/Salmeterol 2 puff 09/20/21 07:00 09/20/21 19:15 Fluticasone/Salmeterol 230/21 Common Canister IH 10/20/21 06:59 Not Given BIDRT WILLIAM Intake & Output (Last 24 hours) 09/23/21 09/24/21 09/25/21 09/26/21 11:59 11:59 11:59 11:59 Intake Total 8733 715 8192 Output Total 1750 1875 1475 Balance -350 -1305 -195 Laboratory Results (Last 24 hours) 09/25/21 09/25/21 05:20 05:20 WBC 17.4 H RBC 5.95 H Hgb 18.4 H Hct 55.0 H MCV 92.4 MCH 30.9 MCHC 33.5 RDW 13.6 Plt Count 412 MPV 9.7 Sodium 134 L Potassium 5.3 H Chloride 96 L Carbon Dioxide 27 Anion Gap 16.6 H Orders (Last 24 hours) Category Date Time Status Discharge Planning,Consult Routine Discharge 09/25/21 Active CBC DAILY Lab 09/25/21 05:20 Completed CBC DAILY Lab 09/26/21 04:00 Ordered ELECTROLYTE PANEL DAILY Lab 09/25/21 05:20 Completed ELECTROLYTE PANEL DAILY Lab 09/26/21 04:00 Ordered Lorazepam 1 mg [Ativan 1 MG] Med 09/24/21 22:00 Discontinued 2 mg PO STAT ONE Patient Care Notes (Last 24 hours) 09/25/21 08:58 Case Management Note by Pebbles Cody Addendum entered by Pebbles Cody RN 09/25/21 10:05: DR CUEVAS ROUNDED ON PATIENT THIS AM, TOLD HIM HE COULD GO HOME WITH THE HIGH FLOW OXYGEN IF HE WENT HOME WITH HOSPICE. PATIENT VERY AGREEABLE TO THIS PLAN. PHONED AND SPOKE WITH SPOUSE SARAH. DISCUSSED HOSPICE COMFORT CARE AT HOME AND PATIENT IS AGREEABLE TO THIS. SHE STATES IF HE WANTS TO COME HOME AND BE COMF ORTABLE, SHE WANTS THAT TOO. WILL PHONE [facility], THEY ARE THE ONES ABLE TO DO HIGH FLOW O2. Original Note: PATIENT CONTINUES TO BE ACUTELY ILL ON HIGH FLOW OXYGEN, LIVES HOME WITH INDEPENDENTLY WITH ALL ADLS. WILL CONTINUE TO FOLLOW FOR ANY D/C NEEDS. Initialized on 09/25/21 08:58 - END OF NOTE 09/24/21 20:09 SBAR Note by Kerline Damon SITUATION I am calling about AZAR VALLEJO the patient's code status is SCO The problem I am calling about is: pt and c/o pt not being able to sleep ASSESSMENT pt called and stated that even with xanax and ativan that pt is not able to sleep. RECOMMENDATION Physician notified at 2008 New Orders received: give 2 mg ativan PO at bedtime and hold off on bedtime xanax Vital Signs (Last 4 hours) Temp Pulse Resp BP Pulse Ox 09/24/21 19:58 97.5 F 105 H 20 124/75 89 L 09/24/21 19:00 95 H 20 88 L 09/24/21 18:00 95 H 20 89 L 09/24/21 17:00 104 H 20 90 L Diagnois, Code Status Date of Arrival on Unit 09/17/21 Admitted From Emergency Dept Diagnosis Covid, Hypoxia, Weakness Resucitation Status SCO Intake and Output 12 Hours 09/24/21 09/25/21 18:59 06:59 Intake Total 620 Output Total 1100 Balance -480 Intake: Intake, Oral Amount 620 Output: Output, Urine Amount 1100 Other: Number of Bowel Movements 1 Physical Assessment Anxiety Level None,at ease,Calm,Sleeping Mental Status Alert Patient Orientation Person,Place,Time Coma Scale Total 14 Breath Sounds [Posterior Right Crackles,Fine Bases] Breath Sounds [Posterior Crackles,Diminished Bilateral Throughout] Breath Sounds [Anterior Diminished Bilateral Throughout] Breath Sounds [Posterior Right Crackles,Fine Bases] Breath Sounds [Posterior Clear,Diminished Bilateral Throughout] Breath Sounds [Anterior Clear,Diminished Bilateral Throughout] Cardiac Rhythm-SCCH Sinus Rhythm Change from Baseline: No Bowel Sounds [All Quadrants] Present Abdomen Description Soft,Non-Tender Urine Appearance Clear Urine Color Light Lyn Skin Color Normal for Race Skin Temperature Warm Pain Scale (Last 12 Hours) Pain Intensity 0 Pain Intensity 0 PAST MEDICAL HISTORY Neurological History No Pertinent History ENT History Cataracts Endocrine Medical History No Pertinent History Respiratory History COPD Cardiac History No Pertinent History,High Cholesterol GI Medical History Gallbladder Disease,Hemorrhoids History No Pertinent History Pyscho-Social History No Pertinent History Communicable Disease No Pertinent History Lab Results (Last 12 Hours) 09/24/21 Range/Units 06:34 Troponin I < 0.012 (0.000-0.034) ng/mL Orders (Last 12 Hours) Category Date Time Status ABG [ARTERIAL BLOOD GASES] DAILY Lab 09/25/21 04:00 Ordered ABG [ARTERIAL BLOOD GASES] DAILY Lab 09/26/21 04:00 Ordered CBC DAILY Lab 09/25/21 04:00 Ordered CBC DAILY Lab 09/26/21 04:00 Ordered ELECTROLYTE PANEL DAILY Lab 09/25/21 04:00 Ordered ELECTROLYTE PANEL DAILY Lab 09/26/21 04:00 Ordered Famotidine 20 mg [Pepcid 20 MG] Med 09/24/21 10:00 Active 20 mg PO BID Lorazepam 1 mg [Ativan 1 MG] Med 09/24/21 22:00 Once 2 mg PO STAT ONE Active Visit Medications Generic Name Dose Route Start Last Admin Trade Name Freq PRN Reason Stop Dose Admin Acetaminophen 1,000 mg 09/17/21 17:27 Acetaminophen 500 Mg Tablet PO 10/17/21 17:26 Q4HPRN PRN ORAL TEMP >100.4 Al Hydrox/Mg Hydrox/Simethicone 30 ml 09/24/21 06:07 09/24/21 06:19 Mag Hydrox/Al Hydrox/Simeth 30 Ml Udcup PO 10/24/21 06:06 30 ml Q2H PRN PRN Administration INDIGESTION Albuterol Sulfate 4 puff 09/19/21 19:31 Albuterol Common Canister Inhaler IH 10/19/21 19:30 Q4H PRN PRN SHORTNESS OF BREATH/WHEEZING Alprazolam 1 mg 09/17/21 22:00 09/23/21 21:23 Alprazolam 1 Mg Tablet PO 10/17/21 21:59 1 mg HS WILLIAM Administration Aspirin 81 mg 09/17/21 18:00 09/24/21 10:45 Aspirin 81 Mg Tablet.Ec PO 10/17/21 17:59 81 mg DAILY WILLIAM Administration Baricitinib 2 mg 09/18/21 10:00 09/24/21 10:46 Baricitinib 2 Mg Tablet PO 10/01/21 10:01 2 mg DAILY WILLIAM Administration Calcium Carbonate/Glycine 1,500 mg 09/23/21 21:18 09/24/21 04:45 Calcium Carbonate 750 Mg 750 Mg Tab.Chew PO 10/23/21 21:15 1,500 mg Q2H PRN PRN Administration GERD Chlorphenir/Hydrocodone Polistirex 5 ml 09/17/21 17:28 Hydrocodone/Chlorphen P-Stirex 1 Ml Tessie.Er.12h PO 10/17/21 17:27 [id number] PRN Dexamethasone Sodium Phosphate 8 mg 09/18/21 10:00 09/24/21 10:45 Dexamethasone Sod Phosphate 10 Mg/Ml IV 10/18/21 09:59 8 mg DAILY WILLIAM Administration Enoxaparin Sodium 60 mg 09/21/21 10:00 09/24/21 10:45 Enoxaparin Sodium 60 Mg/0.6 Ml Syringe SQ 10/21/21 09:59 60 mg DAILY WILLIAM Administration Famotidine 20 mg 09/24/21 10:00 09/24/21 06:19 Famotidine 20 Mg Tablet PO 10/24/21 09:59 20 mg BID WILLIAM Administration Lorazepam 1 mg 09/17/21 17:24 09/24/21 00:24 Lorazepam 1 Mg Tablet PO 10/17/21 17:23 1 mg Q4HPRN PRN Administration ANXIETY/SLEEP Lorazepam 1 mg 09/17/21 17:24 Lorazepam 2 Mg/1 Ml 2 Mg Vial IV 10/17/21 17:23 Q4HPRN PRN ANXIETY/SLEEP Lorazepam 2 mg 09/24/21 22:00 Lorazepam 1 Mg Tablet PO 09/24/21 22:01 STAT ONE Ondansetron HCl 4 mg 09/17/21 17:27 Ondansetron Hcl 4 Mg/2 Ml Vial IV 10/17/21 17:26 Q6HPRN PRN NAUSEA/VOMITING Fluticasone/Salmeterol 2 puff 09/21/21 19:00 09/24/21 08:09 Fluticasone/Salmeterol 230/21 Common Canister IH 10/21/21 18:59 2 puff BIDRT WILLIAM Administration Simethicone 80 mg 09/23/21 19:43 09/23/21 21:23 Simethicone 80 Mg Tab.Chew PO 10/23/21 19:42 80 mg QID PRN PRN Administration Gas Pain Simvastatin 20 mg 09/17/21 18:00 09/24/21 10:46 Simvastatin 20 Mg Tablet PO 10/17/21 17:59 20 mg DAILY WILLIAM Administration Tamsulosin HCl 0.4 mg 09/17/21 18:00 09/24/21 10:45 Tamsulosin Hcl 0.4 Mg Cap PO 10/17/21 17:59 0.4 mg DAILY WILLIAM Administration Trimethoprim/Sulfamethoxazole 1 tab 09/18/21 14:00 09/24/21 10:45 Smz/Tmp Ds Tablet 1 Tablet PO 10/18/21 13:59 1 tab BID WILLIAM Administration Home Medications Medication Instructions Recorded Confirmed Last Taken Type ALPRAZolam 1 MG [Xanax 1 mg] 1 mg PO DAILY 09/17/21 09/17/21 Unknown History Aspirin [Aspirin EC] 81 mg PO DAILY 09/17/21 09/17/21 Unknown History Initialized on 09/24/21 20:09 - END OF NOTE patient is still very hypoxic requiring high flow oxygen approximately 10-15 L. Patient and his are both want him to be at home. Patient has 3 daughters and they all also agree that patient will be better at home. I advised them that only where patient will benefit with the hospice care. They agreed with the hospice care. Once the hospice care will make all arrangements for oxygen at home we will discharge him home with hospice care. - Vitals & Intake/Output Vital Signs: Vital Signs Temperature 98.3 F 09/25/21 12:00 Pulse Rate 103 H 09/25/21 12:00 Respiratory Rate 34 H 09/25/21 12:00 Blood Pressure 119/71 09/25/21 12:00 O2 Sat by Pulse Oximetry 91 L 09/25/21 12:00 Intake & Output: Intake & Output 09/23/21 09/24/21 09/25/21 09/26/21 11:59 11:59 11:59 11:59 Intake Total 6597 325 8047 Output Total 5060 2827 1902 Balance -350 -1305 -195 - Lab Result Diagrams: 09/25/21 05:20 09/25/21 05:20 Lab Results-Last 24 Hrs: Lab Results-Last 24 Hours 09/25/21 09/25/21 Range/Units 05:20 05:20 WBC 17.4 H (4.0-10.5) K/mm3 RBC 5.95 H (4.1-5.6) M/mm3 Hgb 18.4 H (12.5-18.0) gm/dl Hct 55.0 H (42-50) % MCV 92.4 (78-100) fl MCH 30.9 (26-32) pg MCHC 33.5 (32-36) g/dl RDW 13.6 (11.5-14.0) % Plt Count 412 (150-450) K/mm3 MPV 9.7 (7.5-11.0) fl Sodium 134 L (137-145) mmol/L Potassium 5.3 H (3.5-5.1) mmol/L Chloride 96 L (98-107) mmol/L Carbon Dioxide 27 (22-30) mmol/L Anion Gap 16.6 H (5-15) MEQ/L Micro Results-Entire Visit: Microbiology 09/17/21 11:52 Blood Culture Gram Stain - Final Blood Not Reportable Blood Culture - Final NO GROWTH 09/17/21 11:42 Blood Culture Gram Stain - Final Blood Not Reportable Blood Culture - Final NO GROWTH 09/17/21 14:08 Urine Culture - Final Urine, Void Escherichia Coli - Procedures and Test Procedures and Tests throughout Hospitalization: Therapy Orders & Screens 09/17/21 12:29 Respiratory Therapy Assessment DAILY Comment: 09/17/21 14:16 Respiratory Therapy Consult ROUTINE Comment: Reason For Exam: 09/17/21 15:00 Oxygen Oxymizer LPM 8 lpm Comment: 09/19/21 19:30 Respiratory Therapy Assessment DAILY Comment: Diagnosis: Covid, Hypoxia, Weakness 09/20/21 15:25 Oxygen High Flow per RT 45% Comment: Diagnosis: Covid, Hypoxia, Weakness 09/21/21 07:00 Respiratory MDI BID Comment: Diagnosis: Covid, Hypoxia, Weakness Discharge Exam General Appearance: no apparent distress, mild distress, alert Neurologic Exam: alert, oriented x 3, cooperative, normal mood/affect, sensation nml, No motor deficits Eye Exam: PERRL, EOMI, eyes nml inspection Ears, Nose, Throat Exam: normal ENT inspection, pharynx normal, moist mucous membranes Neck Exam: normal inspection, non-tender, supple, full range of motion Respiratory Exam: respiratory distress, diminished breath sounds, accessory mus ekta use, crackles/rales, rhonchi, wheezing Cardiovascular Exam: regular rate/rhythm, normal heart sounds Gastrointestinal/Abdomen Exam: soft, No tenderness, No mass Male Genitalia Exam: deferred Rectal Exam: deferred Back Exam: normal inspection, normal range of motion, No CVA tenderness, No vertebral tenderness Extremity Exam: normal inspection, normal range of motion Skin Exam: normal color, warm, dry Wound Assessment: Skin/Wound Assessment Wound/Incision Assessment Start: 09/23/21 18:12 Text: Status: Active Freq: Q4H Protocol: Document 09/25/21 12:00 EK (Rec: 09/25/21 12:21 EK [id number]) Wound/Incision Assessment Posterior Coccyx Wound Assessment Shift Assessment Wound Type Pressure Ulcer Wound Stage Stage II Drainage Amount None Drainage Odor None/Absent General Appearance Well Approximated,Open to air Wound Bed Greatest Portion Pale [place] Wound Bed Lesser Portion Pale [place] Comment pt being turned and barrier cream being applied Wound Photo Photo Taken No Final Diagnosis/Problem List - Final Discharge Diagnosis/Problem (1) Acute and chronic respiratory failure ([id number]) Current Visit: Yes Status: Acute Priority: High Assessment & Plan: Chief Complaint Diagnosis Covid, Hypoxia, Weakness Allergies Allergy/AdvReac Type Severity Reaction Status Date / Time azithromycin [From Zithromax] Allergy Unknown Verified 09/17/21 11:13 ceftriaxone Allergy Unknown Verified 09/17/21 11:13 prednisone Allergy Unknown Verified 09/17/21 11:13 Vital Signs (Last 24 hours) Temp Pulse Resp BP Pulse Ox 09/25/21 12:00 98.3 F 103 H 34 H 119/71 91 L 09/25/21 11:00 102 H 19 92 L 09/25/21 10:00 98 H 18 91 L 09/25/21 09:00 105 H 19 89 L 09/25/21 08:00 21 09/25/21 07:52 85 23 87 L 09/25/21 06:54 98.5 F 112 H 23 112/63 87 L 09/25/21 05:35 100 H 15 89 L 09/25/21 05:32 99 H 14 88 L 09/25/21 05:00 79 22 95 09/25/21 04:00 98.3 F 98 H 20 109/68 90 L 09/25/21 03:00 93 H 22 91 L 09/25/21 02:00 76 21 90 L 09/25/21 01:00 110 H 26 H 85 L 09/24/21 23:55 89 17 95 09/24/21 22:59 98.6 F 107 H 16 143/86 87 L 09/24/21 22:00 20 09/24/21 21:50 94 H 20 90 L 09/24/21 20:34 101 H 20 91 L 09/24/21 20:00 20 09/24/21 19:58 97.5 F 105 H 20 124/75 89 L 09/24/21 19:43 101 H 20 89 L 09/24/21 19:00 95 H 20 88 L 09/24/21 18:00 95 H 20 89 L 09/24/21 17:00 104 H 20 90 L 09/24/21 16:00 24 09/24/21 15:40 98.0 F 117 H 26 H 136/82 90 L 09/24/21 15:00 100 H 18 91 L 09/24/21 14:00 102 H 18 88 L Home Medications Medication Instructions Recorded Confirmed Last Taken Type ALPRAZolam 1 MG [Xanax 1 mg] 1 mg PO DAILY 09/17/21 09/17/21 Unknown History Aspirin [Aspirin EC] 81 mg PO DAILY 09/17/21 09/17/21 Unknown History Current Medications Generic Name Dose Route Start Last Admin Trade Name Freq PRN Reason Stop Dose Admin Acetaminophen 1,000 mg 09/17/21 17:27 Acetaminophen 500 Mg Tablet PO 10/17/21 17:26 Q4HPRN PRN ORAL TEMP >100.4 Al Hydrox/Mg Hydrox/Simethicone 30 ml 09/24/21 06:07 09/24/21 06:19 Mag Hydrox/Al Hydrox/Simeth 30 Ml Udcup PO 10/24/21 06:06 30 ml Q2H PRN PRN Administration INDIGESTION Albuterol Sulfate 4 puff 09/19/21 19:31 Albuterol Common Canister Inhaler IH 10/19/21 19:30 Q4H PRN PRN SHORTNESS OF BREATH/WHEEZING Alprazolam 1 mg 09/17/21 22:00 09/24/21 23:37 Alprazolam 1 Mg Tablet PO 10/17/21 21:59 1 mg HS WILLIAM Administration Aspirin 81 mg 09/17/21 18:00 09/25/21 10:42 Aspirin 81 Mg Tablet.Ec PO 10/17/21 17:59 81 mg DAILY WILLIAM Administration Baricitinib 2 mg 09/18/21 10:00 09/25/21 10:43 Baricitinib 2 Mg Tablet PO 10/01/21 10:01 2 mg DAILY WILLIAM Administration Calcium Carbonate/Glycine 1,500 mg 09/23/21 21:18 09/24/21 22:02 Calcium Carbonate 750 Mg 750 Mg Tab.Chew PO 10/23/21 21:15 1,500 mg Q2H PRN PRN Administration GERD Chlorphenir/Hydrocodone Polistirex 5 ml 09/17/21 17:28 Hydrocodone/Chlorphen P-Stirex 1 Ml Tessie.Er.12h PO 10/17/21 17:27 [id number] PRN Dexamethasone Sodium Phosphate 8 mg 09/18/21 10:00 09/25/21 10:42 Dexamethasone Sod Phosphate 10 Mg/Ml IV 10/18/21 09:59 8 mg DAILY WILLIAM Administration Enoxaparin Sodium 60 mg 09/21/21 10:00 09/25/21 10:42 Enoxaparin Sodium 60 Mg/0.6 Ml Syringe SQ 10/21/21 09:59 60 mg DAILY WILLIAM Administration Famotidine 20 mg 09/24/21 10:00 09/25/21 10:43 Famotidine 20 Mg Tablet PO 10/24/21 09:59 20 mg BID WILLIAM Administration Lorazepam 1 mg 09/17/21 17:24 09/24/21 00:24 Lorazepam 1 Mg Tablet PO 10/17/21 17:23 1 mg Q4HPRN PRN Administration ANXIETY/SLEEP Lorazepam 1 mg 09/17/21 17:24 Lorazepam 2 Mg/1 Ml 2 Mg Vial IV 10/17/21 17:23 Q4HPRN PRN ANXIETY/SLEEP Ondansetron HCl 4 mg 09/17/21 17:27 Ondansetron Hcl 4 Mg/2 Ml Vial IV 10/17/21 17:26 Q6HPRN PRN NAUSEA/VOMITING Fluticasone/Salmeterol 2 puff 09/21/21 19:00 09/25/21 05:35 Fluticasone/Salmeterol 230/ Common Canister IH 10/21/21 18:59 2 puff BIDRT WILLIAM Administration Simethicone 80 mg 09/23/21 19:43 09/23/21 21:23 Simethicone 80 Mg Tab.Chew PO 10/23/21 19:42 80 mg QID PRN PRN Administration Gas Pain Simvastatin 20 mg 09/17/21 18:00 09/25/21 10:43 Simvastatin 20 Mg Tablet PO 10/17/21 17:59 20 mg DAILY WILLIAM Administration Tamsulosin HCl 0.4 mg 09/17/21 18:00 09/25/21 10:43 Tamsulosin Hcl 0.4 Mg Cap PO 10/17/21 17:59 0.4 mg DAILY WILLIAM Administration Trimethoprim/Sulfamethoxazole 1 tab 09/18/21 14:00 09/25/21 10:42 Smz/Tmp Ds Tablet 1 Tablet PO 10/18/21 13:59 1 tab BID WILLIAM Administration Discontinued Medications Generic Name Dose Route Start Last Admin Trade Name Freq PRN Reason Stop Dose Admin Albuterol/Ipratropium 3 ml 09/17/21 12:15 09/17/21 12:27 Ipratropium/Albuterol Sulfate 3 Ml Ampul.Neb IH 09/17/21 12:16 3 ml STAT ONE Administration Albuterol/Ipratropium Confirm 09/17/21 12:23 Ipratropium/Albuterol Sulfate 3 Ml Ampul.Neb Administered 09/17/21 12:24 Dose 3 ml IH .STK-MED ONE Alprazolam 1 mg 09/18/21 10:00 Alprazolam 1 Mg Tablet PO 10/18/21 09:59 DAILY WILLIAM Calcium Carbonate/Glycine 750 mg 09/23/21 21:16 Calcium Carbonate 750 Mg 750 Mg Tab.Chew PO 10/23/21 21:15 Q2H PRN PRN GERD Calcium Gluconate 1,000 mg 09/17/21 12:33 09/17/21 12:35 Calcium Gluconate 1000 Mg/10 Ml Vial IV 09/17/21 12:34 1,000 mg STAT ONE Administration Calcium Gluconate Confirm 09/17/21 12:35 Calcium Gluconate 1000 Mg/10 Ml Vial Administered 09/17/21 12:36 Dose 1,000 mg IV .STK-MED ONE Enoxaparin Sodium 40 mg 09/17/21 13:55 09/17/21 13:57 Enoxaparin Sodium 40 Mg/0.4 Ml Syringe SQ 09/17/21 13:56 40 mg STAT ONE Administration Enoxaparin Sodium Confirm 09/17/21 13:57 Enoxaparin Sodium 80 Mg/0.8 Ml Syringe Administered 09/17/21 13:58 Dose 80 mg SQ .STK-MED ONE Enoxaparin Sodium 40 mg 09/18/21 10:00 09/20/21 09:00 Enoxaparin Sodium 40 Mg/0.4 Ml Syringe SQ 10/18/21 09:59 40 mg DAILY WILLIAM Administration Famotidine Confirm 09/24/21 06:18 Famotidine 20 Mg Tablet Administered 09/24/21 06:19 Dose 20 mg .ROUTE .STK-MED ONE Sodium Chloride 1,000 mls @ 100 mls/hr 09/17/21 11:30 09/17/21 11:39 Sodium Chloride 0.9% 1000 Ml IV 10/17/21 11:29 100 mls/hr .Q10H WILLIAM Administration Vancomycin HCl 1 gm in 200 mls @ 125 mls/hr 09/17/21 12:16 09/17/21 12:34 Vancomycin 1 Gram/200 Ml Bag IV 09/17/21 13:51 125 mls/hr STAT ONE 125 mls/hr Administration Piperacillin Sod/Tazobactam 100 mls @ 200 mls/hr 09/17/21 18:00 Sod 3.375 gm/ Sodium Chloride IV 09/20/21 17:59 Q6HT WILLIAM Vancomycin HCl Confirm 09/17/21 12:33 Vancomycin 1 Gram/200 Ml Bag Administered 09/17/21 12:34 Dose 1 gm in 200 mls @ ud IV .STK-MED ONE Remdesivir 200 mg/ Sodium 250 mls @ 125 mls/hr 09/17/21 17:30 09/17/21 18:14 Chloride IV 09/17/21 19:29 125 mls/hr ONCE ONE Administration Remdesivir 100 mg/ Sodium 100 mls @ 100 mls/hr 09/18/21 10:00 09/21/21 10:14 Chloride IV 09/21/21 10:59 100 mls/hr DAILY WILLIAM Administration Loperamide HCl 2 mg 09/23/21 19:59 Loperamide Hcl 2 Mg Capsule PO 10/23/21 19:58 PRN PRN DIARRHEA Lorazepam 2 mg 09/24/21 22:00 09/24/21 22:01 Lorazepam 1 Mg Tablet PO 09/24/21 22:01 2 mg STAT ONE Administration Morphine Sulfate 4 mg 09/17/21 14:16 Morphine Sulfate 4 Mg/Ml Injection IV 09/22/21 14:15 Q4H PRN PRN PAIN Patient Own Med : 2 each 09/21/21 07:00 09/23/21 10:01 Symbicort IH 10/21/21 06:59 Not Given BIDRT WILLIAM Fluticasone/Salmeterol 2 puff 09/20/21 07:00 09/20/21 19:15 Fluticasone/Salmeterol 230/21 Common Canister IH 10/20/21 06:59 Not Given BIDRT WILLIAM Intake & Output (Last 24 hours) 09/23/21 09/24/21 09/25/21 09/26/21 11:59 11:59 11:59 11:59 Intake Total 8528 681 9940 Output Total 1750 1875 1475 Balance -350 -2481 -337 Laboratory Results (Last 24 hours) 09/25/21 09/25/21 05:20 05:20 WBC 17.4 H RBC 5.95 H Hgb 18.4 H Hct 55.0 H MCV 92.4 MCH 30.9 MCHC 33.5 RDW 13.6 Plt Count 412 MPV 9.7 Sodium 134 L Potassium 5.3 H Chloride 96 L Carbon Dioxide 27 Anion Gap 16.6 H Orders (Last 24 hours) Category Date Time Status Discharge Planning,Consult Routine Discharge 09/25/21 Active CBC DAILY Lab 09/25/21 05:20 Completed CBC DAILY Lab 09/26/21 04:00 Ordered ELECTROLYTE PANEL DAILY Lab 09/25/21 05:20 Completed ELECTROLYTE PANEL DAILY Lab 09/26/21 04:00 Ordered Lorazepam 1 mg [Ativan 1 MG] Med 09/24/21 22:00 Discontinued 2 mg PO STAT ONE Patient Care Notes (Last 24 hours) 09/25/21 08:58 Case Management Note by Pebbles Cody Addendum entered by Pebbles Cody RN 09/25/21 10:05: DR CUEVAS ROUNDED ON PATIENT THIS AM, TOLD HIM HE COULD GO HOME WITH THE HIGH FLOW OXYGEN IF HE WENT HOME WITH HOSPICE. PATIENT VERY AGREEABLE TO THIS PLAN. PHONED AND SPOKE WITH SPOUSE SARAH. DISCUSSED HOSPICE COMFORT CARE AT HOME AND PATIENT IS AGREEABLE TO THIS. SHE STATES IF HE WANTS TO COME HOME AND BE COMFORTABLE, SHE WANTS THAT TOO. [facility], [facility] ARE THE ON[facility] ABLE TO DO HIGH FLOW O2. Original Note: PATIENT CONTINUES TO BE ACUTELY ILL ON HIGH FLOW OXYGEN, LIVES HOME WITH INDEPENDENTLY WITH ALL ADLS. WILL CONTINUE TO FOLLOW FOR ANY D/C NEEDS. Initialized on 09/25/21 08:58 - END OF NOTE 09/24/21 20:09 SBAR Note by Kerline Damon SITUATION I am calling about AZAR VALLEJO the patient's code status is SCO The problem I am calling about is: pt and c/o pt not being able to sleep ASSESSMENT pt called and stated that even with xanax and ativan that pt is not able to sleep. RECOMMENDATION Physician notified at 2008 New Orders received: give 2 mg ativan PO at bedtime and hold off on bedtime xanax Vital Signs (Last 4 hours) Temp Pulse Resp BP Pulse Ox 09/24/21 19:58 97.5 F 105 H 20 124/75 89 L 09/24/21 19:00 95 H 20 88 L 09/24/21 18:00 95 H 20 89 L 09/24/21 17:00 104 H 20 90 L Diagnois, Code Status Date of Arrival on Unit 09/17/21 Admitted From Emergency Dept Diagnosis Covid, Hypoxia, Weakness Resucitation Status SCO Intake and Output 12 Hours 09/24/21 09/25/21 18:59 06:59 Intake Total 620 Output Total 1100 Balance -480 Intake: Intake, Oral Amount 620 Output: Output, Urine Amount 1100 Other: Number of Bowel Movements 1 Physical Assessment Anxiety Level None,at ease,Calm,Sleeping Mental Status Alert Patient Orientation Person,Place,Time Coma Scale Total 14 Breath Sounds [Posterior Right Crackles,Fine Bases] Breath Sounds [Posterior Crackles,Diminished Bilateral Throughout] Breath Sounds [Anterior Diminished Bilateral Throughout] Breath Sounds [Posterior Right Crackles,Fine Bases] Breath Sounds [Posterior Clear,Diminished Bilateral Throughout] Breath Sounds [Anterior Clear,Diminished Bilateral Throughout] Cardiac Rhythm-[facility] Sinus Rhythm Change from Baseline: No Bowel Sounds [All Quadrants] Present Abdomen Description Soft,Non-Tender Urine Appearance Clear Urine Color Light Lyn Skin Color Normal for Race Skin Temperature Warm Pain Scale (Last 12 Hours) Pain Intensity 0 Pain Intensity 0 PAST MEDICAL HISTORY Neurological History No Pertinent History ENT History Cataracts Endocrine Medical History No Pertinent History Respiratory History COPD Cardiac History No Pertinent History,High Cholesterol GI Medical History Gallbladder Disease,Hemorrhoids History No Pertinent History Pyscho-Social History No Pertinent History Communicable Disease No Pertinent History Lab Results (Last 12 Hours) 09/24/21 Range/Units 06:34 Troponin I < 0.012 (0.000-0.034) ng/mL Orders (Last 12 Hours) Category Date Time Status ABG [ARTERIAL BLOOD GASES] DAILY Lab 09/25/21 04:00 Ordered ABG [ARTERIAL BLOOD GASES] DAILY Lab 09/26/21 04:00 Ordered CBC DAILY Lab 09/25/21 04:00 Ordered CBC DAILY Lab 09/26/21 04:00 Ordered ELECTROLYTE PANEL DAILY Lab 09/25/21 04:00 Ordered ELECTROLYTE PANEL DAILY Lab 09/26/21 04:00 Ordered Famotidine 20 mg [Pepcid 20 MG] Med 09/24/21 10:00 Active 20 mg PO BID Lorazepam 1 mg [Ativan 1 MG] Med 09/24/21 22:00 Once 2 mg PO STAT ONE Active Visit Medications Generic Name Dose Route Start Last Admin Trade Name Freq PRN Reason Stop Dose Admin Acetaminophen 1,000 mg 09/17/21 17:27 Acetaminophen 500 Mg Tablet PO 10/17/21 17:26 Q4HPRN PRN ORAL TEMP >100.4 Al Hydrox/Mg Hydrox/Simethicone 30 ml 09/24/21 06:07 09/24/21 06:19 Mag Hydrox/Al Hydrox/Simeth 30 Ml Udcup PO 10/24/21 06:06 30 ml Q2H PRN PRN Administration INDIGESTION Albuterol Sulfate 4 puff 09/19/21 19:31 Albuterol Common Canister Inhaler IH 10/19/21 19:30 Q4H PRN PRN SHORTNESS OF BREATH/WHEEZING Alprazolam 1 mg 09/17/21 22:00 09/23/21 21:23 Alprazolam 1 Mg Tablet PO 10/17/21 21:59 1 mg HS WILLIAM Administration Aspirin 81 mg 09/17/21 18:00 09/24/21 10:45 Aspirin 81 Mg Tablet.Ec PO 10/17/21 17:59 81 mg DAILY WILLIAM Administration Baricitinib 2 mg 09/18/21 10:00 09/24/21 10:46 Baricitinib 2 Mg Tablet PO 10/01/21 10:01 2 mg DAILY WILLIAM Administration Calcium Carbonate/Glycine 1,500 mg 09/23/21 21:18 09/24/21 04:45 Calcium Carbonate 750 Mg 750 Mg Tab.Chew PO 10/23/21 21:15 1,500 mg Q2H PRN PRN Administration GERD Chlorphenir/Hydrocodone Polistirex 5 ml 09/17/21 17:28 Hydrocodone/Chlorphen P-Stirex 1 Ml Tessie.Er.12h PO 10/17/21 17:27 [id number] PRN Dexamethasone Sodium Phosphate 8 mg 09/18/21 10:00 09/24/21 10:45 Dexamethasone Sod Phosphate 10 Mg/Ml IV 10/18/21 09:59 8 mg DAILY WILLIAM Administration Enoxaparin Sodium 60 mg 09/21/21 10:00 09/24/21 10:45 Enoxaparin Sodium 60 Mg/0.6 Ml Syringe SQ 10/21/21 09:59 60 mg DAILY WILLIAM Administration Famotidine 20 mg 09/24/21 10:00 09/24/21 06:19 Famotidine 20 Mg Tablet PO 10/24/21 09:59 20 mg BID WILLIAM Administration Lorazepam 1 mg 09/17/21 17:24 09/24/21 00:24 Lorazepam 1 Mg Tablet PO 10/17/21 17:23 1 mg Q4HPRN PRN Administration ANXIETY/SLEEP Lorazepam 1 mg 09/17/21 17:24 Lorazepam 2 Mg/1 Ml 2 Mg Vial IV 10/17/21 17:23 Q4HPRN PRN ANXIETY/SLEEP Lorazepam 2 mg 09/24/21 22:00 Lorazepam 1 Mg Tablet PO 09/24/21 22:01 STAT ONE Ondansetron HCl 4 mg 09/17/21 17:27 Ondansetron Hcl 4 Mg/2 Ml Vial IV 10/17/21 17:26 Q6HPRN PRN NAUSEA/VOMITING Fluticasone/Salmeterol 2 puff 09/21/21 19:00 09/24/21 08:09 Fluticasone/Salmeterol 230/21 Common Canister IH 10/21/21 18:59 2 puff BIDRT WILLIAM Administration Simethicone 80 mg 09/23/21 19:43 09/23/21 21:23 Simethicone 80 Mg Tab.Chew PO 10/23/21 19:42 80 mg QID PRN PRN Administration Gas Pain Simvastatin 20 mg 09/17/21 18:00 09/24/21 10:46 Simvastatin 20 Mg Tablet PO 10/17/21 17:59 20 mg DAILY WILLIAM Administration Tamsulosin HCl 0.4 mg 09/17/21 18:00 09/24/21 10:45 Tamsulosin Hcl 0.4 Mg Cap PO 10/17/21 17:59 0.4 mg DAILY WILLIAM Administration Trimethoprim/Sulfamethoxazole 1 tab 09/18/21 14:00 09/24/21 10:45 Smz/Tmp Ds Tablet 1 Tablet PO 10/18/21 13:59 1 tab BID WILLIAM Administration Home Medications Medication Instructions Recorded Confirmed Last Taken Type ALPRAZolam 1 MG [Xanax 1 mg] 1 mg PO DAILY 09/17/21 09/17/21 Unknown History Aspirin [Aspirin EC] 81 mg PO DAILY 09/17/21 09/17/21 Unknown History Initialized on 09/24/21 20:09 - END OF NOTE Patient will be discharged home with hospice. Code(s): J96.20 - ACUTE AND CHR RESP FAILURE, UNSP W HYPOXIA OR HYPERCAPNIA (2) COPD exacerbation Current Visit: Yes Status: Acute Code(s): J44.1 - CHRONIC OBSTRUCTIVE PULMONARY DISEASE W (ACUTE) EXACERBATION (3) Pneumonia due to COVID-19 virus Current Visit: Yes Status: Acute Code(s): U07.1 - COVID-19; J12.82 - PNEUMONIA DUE TO CORONAVIRUS DISEASE 2019 (4) SARS-CoV-2 positive Current Visit: Yes Status: Acute Code(s): U07.1 - COVID-19 - Discharge Disposition: Hospice @ [facility] Condition: Fair Prescriptions: No Action Rosuvastatin Calcium [Crestor] 10 mg PO DAILY Tamsulosin HCl 0.4 mg [Flomax 0.4 MG] 0.4 mg PO DAILY Aspirin [Aspirin EC] 81 mg PO DAILY ALPRAZolam 1 MG [Xanax 1 mg] 1 mg PO DAILY Follow up with: ARIANA WESTFALL DO [Primary Care Provider] -
[2021-09-25] MEDS: XANAX 1 MG PO SCH (21:36)
[2021-09-26] MEDS: Advair Hfa 230/21 Mcg COMMON CANISTER IH SCH ×2 (07:10→19:40)
[2021-09-26] MEDS: Flomax 0.4 MG PO SCH ×2 (09:46→10:12)
[2021-09-26] MEDS: ECOTRIN 81 MG PO SCH (09:46)
[2021-09-26] MEDS: OLUMIANT PO SCH (09:46)
[2021-09-26] MEDS: BACTRIM DS TABLET PO SCH ×2 (09:47→20:54)
[2021-09-26] MEDS: ZOCOR 20MG PO SCH (09:47)
[2021-09-26] MEDS: DECADRON 10MG INJ. IV SCH (09:47)
[2021-09-26] MEDS: ENOXAPARIN SODIUM SQ SCH (09:47)
[2021-09-26] MEDS: Pepcid 20 MG PO SCH ×2 (09:47→20:54)
[2021-09-26 09:55] LABS: Hematocrit 55.6 % (42-50); Hemoglobin 18.4 gm/dl (12.5-18.0); Mean Cell Volume 92.7 fl (78-100); Mean Corpuscular Hemoglobin 30.7 pg (26-32); Mean Corpuscular Hgb Concent. 33.1 g/dl (32-36); Mean Platelet Volume 9.1 fl (7.5-11.0); Platelet Count 520 K/mm3 (150-450); Red Cell Distribution Width 13.6 % (11.5-14.0); White Blood Count 18.1 K/mm3 (4.0-10.5)
[2021-09-26 10:02] LABS: ANION GAP 17.5 MEQ/L (5-15); Potassium 5.2 mmol/L (3.5-5.1)
[2021-09-26] MEDS: MARY'S MOUTHWASH PO SCH ×3 (13:39→20:55)
--- NOTE | 2021-09-26 14:00 | PCM.NOTE ---
Date and Time: 09/26/21 0598 Subjective Assessment: still vary shortness of breath - Review of Systems Constitutional: No Fever, No Chills Eyes: No Symptoms Ears, Nose, & Throat: No Symptoms Respiratory: Orthopnea, Short Of Breath, Wheezing, No Cough Cardiac: No Chest Pain, No Edema, No Syncope Abdominal/Gastrointestinal: No Abdominal Pain, No Nausea, No Vomiting, No Diarrhea Genitourinary Symptoms: No Dysuria Musculoskeletal: No Back Pain, No Neck Pain Skin: No Rash Neurological: No Dizziness, No Focal Weakness, No Sensory Changes Psychological: No Symptoms Endocrine: No Symptoms Hematologic/Lymphatic: No Symptoms Immunological/Allergic: No Symptoms Objective Exam General Appearance: no apparent distress, alert Neurologic Exam: alert, oriented x 3, cooperative, normal mood/affect, nml cerebellar function, sensation nml, No motor deficits Skin Exam: normal color, warm, dry Wound Assessment: Skin/Wound Assessment Wound/Incision Assessment Start: 09/23/21 18:12 Text: Status: Active Freq: Q4H Protocol: Document 09/26/21 12:00 SHERLYN (Rec: 09/26/21 12:03 SHERLYN [id number]) Wound/Incision Assessment Posterior Coccyx Wound Assessment Shift Assessment Wound Type Pressure Ulcer Wound Stage Stage II Drainage Amount None Drainage Odor None/Absent General Appearance Well Approximated,Open to air Wound Bed Greatest Portion Pale Lohman Wound Bed Lesser Portion Pale Lohman Eye Exam: PERRL, EOMI, eyes nml inspection Ears, Nose, Throat Exam: normal ENT inspection, pharynx normal, moist mucous membranes Neck Exam: normal inspection, non-tender, supple, full range of motion Respiratory Exam: diminished breath sounds, crackles/rales, rhonchi, wheezing, No respiratory distress Cardiovascular Exam: regular rate/rhythm, normal heart sounds Gastrointestinal/Abdomen Exam: soft, No tenderness, No mass Extremity Exam: normal inspection, normal range of motion Back Exam: normal inspection, normal range of motion, No CVA tenderness, No vertebral tenderness Male Genitalia Exam: deferred Rectal Exam: deferred OBJECTIVE DATA Vital Signs: Vital Signs - 24 hr Temp Pulse Resp BP Pulse Ox 09/26/21 13:00 82 12 93 L 09/26/21 12:00 96.9 F 92 H 19 115/56 94 L 09/26/21 11:00 94 H 21 93 L 09/26/21 10:00 100 H 19 86 L 09/26/21 09:00 99 H 14 93 L 09/26/21 07:49 63 26 H 90 L 09/26/21 07:42 97.4 F 93 H 34 H 137/72 89 L 09/26/21 07:00 77 20 89 L 09/26/21 06:00 93 H 20 90 L 09/26/21 04:57 78 20 93 L 09/26/21 04:00 83 22 121/73 90 L 09/26/21 03:00 83 95 09/26/21 02:00 83 22 94 L 09/26/21 01:00 90 92 L 09/26/21 00:00 22 95 09/25/21 23:00 20 95 09/25/21 22:00 20 92 L 09/25/21 21:00 92 L 09/25/21 20:00 20 09/25/21 19:00 98.0 F 104 H 22 102/71 90 L 09/25/21 18:00 98.4 F 112 H 24 109/69 89 L 09/25/21 17:00 98.4 F 112 H 24 109/69 90 L 09/25/21 16:00 24 09/25/21 14:00 104 H 34 H 94 L Pain Assessment - Last Documented Pain Intensity 0 Intake and Output: Intake & Output 09/24/21 09/25/21 09/26/21 09/27/21 11:59 11:59 11:59 11:59 Intake Total 570 1280 740 60 Output Total 1875 1475 1000 200 Balance -1561 -195 -260 -140 Lab Results: Lab Results-Last 24 Hours 09/26/21 09/26/21 Range/Units 09:43 09:43 WBC 18.1 H (4.0-10.5) K/mm3 RBC 6.00 H (4.1-5.6) M/mm3 Hgb 18.4 H (12.5-18.0) gm/dl Hct 55.6 H (42-50) % MCV 92.7 (78-100) fl MCH 30.7 (26-32) pg MCHC 33.1 (32-36) g/dl RDW 13.6 (11.5-14.0) % Plt Count 520 H (150-450) K/mm3 MPV 9.1 (7.5-11.0) fl Sodium 133 L (137-145) mmol/L Potassium 5.2 H (3.5-5.1) mmol/L Chloride 92 L (98-107) mmol/L Carbon Dioxide 28 (22-30) mmol/L Anion Gap 17.5 H (5-15) MEQ/L Multi-Disciplinary Progress Notes: Multi-Disciplinary Progress Notes 09/26/21 09:12 Case Management Note by Ewa Alvarado S/W [facility] [place] THIS AM- THEY WILL ALSO BE UNABLE TO SUPPORT PATIENT'S CURRENT OXYGEN DEMAND AT HOME. CALLED IN TO ROOM AND S/W PATIENT- WE TALKED ABOUT HOW IF WE ARE UNABLE TO SUPPLY HIS OXYGEN DEMAND AT HOME HE WILL LIKELY IN A SHORT AMOUNT OF TIME AND MAY EVEN IN TRANSPORT- PATIENT REPORTED HE WAS NOT READY FOR THAT. HE WAS UNDER THE UNDERSTANDING THAT HE COULD JUST DISCHARGE IN GENERAL ON HIS CURRENT OXYGEN FLOW- HE WAS NOT INTERESTED IN HOSPICE. WHEN I ASKED PATIENT IF ONCE HE GOT HOME IF HE GOT WORSE IF HE WOULD WANT HIS FAMILY TO BRING HIM BACK TO THE HOSPITAL- HE SAID YES. PATIENT NOT APPROPRIATE FOR HOSPICE AT THIS TIME. CALLED - LM, [facility] WILL REACH OUT TO [facility]. NURSE TO ADDRESS CODE STATUS WITH PATIENT TODAY AGAIN WELL Initialized on 09/26/21 09:12 - END OF NOTE 09/25/21 16:30 (created 09/25/21 18:37) Case Management Note by Ewa Alvarado PRIMARY RN RECEIVED CALL FROM STATING THAT [facility] IS AT HER HOME AND REPORTS THEY WILL NOT BE ABLE TO PROVIDE OXYGEN NEEDS WITH EQUIPMENT AVAILABLE. CALLED AND CLARIFIED CURRENT OXYGEN SETTING WITH [facility]. THEY HAD SEEN ON SOME OF THE PAPERWORK SENT THAT PATIENT WAS ON 10L (THIS CHARTING WAS ERROR) AND WAS PREPARED TO SUPPLY THAT AMOUNT. WHEN NOTIFIED THAT PATIENT IS CURRENTLY ON 50L 100% VIA HIGH FLOW- THEY ARE CURRENTLY UNABLE TO SUPPLY THAT DEMAND AT HOME. AMBULANCE IS ALSO UNABLE TO SUPPLY THAT DEMAND FOR TRANSPORT. [facility]- [facility] DC ON HOLD AT THIS TIME. WILL REASSESS TOMORROW TO SEE IF RT CAN WORK WITH PATIENT TO GET HIM ON SOMETHING O2 ADAMS THAT HOSPICE CAN ACCOMODATE SUCH BIPAP. [facility] WILL KEEP ALL EQUIPMENT IN PLACE AT PATIENT'S HOME AT THIS TIME UNTIL A BETTER, MORE FINAL DECISION CAN BE MADE TOMORROW. ATTEMPTED TO CALL TO EXPLAIN THE PLAN SHE HAS CALLED [facility] AND [facility] AT THIS TIME VERY UPSET- NO ANSWER LEFT MESSAGE. HS NOTIFIED OF PLAN Initialized on 09/25/21 18:37 - END OF NOTE Assessment/Plan (1) Acute and chronic respiratory failure ([id number]) Current Visit: Yes Status: Acute Assessment & Plan: Chief Complaint Diagnosis Covid, Hypoxia, Weakness Allergies Allergy/AdvReac Type Severity Reaction Status Date / Time azithromycin [From Zithromax] Allergy Unknown Verified 09/17/21 11:13 ceftriaxone Allergy Unknown Verified 09/17/21 11:13 prednisone Allergy Unknown Verified 09/17/21 11:13 Vital Signs (Last 24 hours) Temp Pulse Resp BP Pulse Ox 09/26/21 13:00 82 12 93 L 09/26/21 12:00 96.9 F 92 H 19 115/56 94 L 09/26/21 11:00 94 H 21 93 L 09/26/21 10:00 100 H 19 86 L 09/26/21 09:00 99 H 14 93 L 09/26/21 07:49 63 26 H 90 L 09/26/21 07:42 97.4 F 93 H 34 H 137/72 89 L 09/26/21 07:00 77 20 89 L 09/26/21 06:00 93 H 20 90 L 09/26/21 04:57 78 20 93 L 09/26/21 04:00 83 22 121/73 90 L 09/26/21 03:00 83 95 09/26/21 02:00 83 22 94 L 09/26/21 01:00 90 92 L 09/26/21 00:00 22 95 09/25/21 23:00 20 95 09/25/21 22:00 20 92 L 09/25/21 21:00 92 L 09/25/21 20:00 20 09/25/21 19:00 98.0 F 104 H 22 102/71 90 L 09/25/21 18:00 98.4 F 112 H 24 109/69 89 L 09/25/21 17:00 98.4 F 112 H 24 109/69 90 L 09/25/21 16:00 24 09/25/21 14:00 104 H 34 H 94 L Home Medications Medication Instructions Recorded Confirmed Last Taken Type ALPRAZolam 1 MG [Xanax 1 mg] 1 mg PO DAILY 09/17/21 09/17/21 Unknown History Aspirin [Aspirin EC] 81 mg PO DAILY 09/17/21 09/17/21 Unknown History Current Medications Generic Name Dose Route Start Last Admin Trade Name Freq PRN Reason Stop Dose Admin Acetaminophen 1,000 mg 09/17/21 17:27 Acetaminophen 500 Mg Tablet PO 10/17/21 17:26 Q4HPRN PRN ORAL TEMP >100.4 Al Hydrox/Mg Hydrox/Simethicone 30 ml 09/24/21 06:07 09/24/21 06:19 Mag Hydrox/Al Hydrox/Simeth 30 Ml Udcup PO 10/24/21 06:06 30 ml Q2H PRN PRN Administration INDIGESTION Albuterol Sulfate 4 puff 09/19/21 19:31 09/25/21 19:30 Albuterol Common Canister Inhaler IH 10/19/21 19:30 4 puff Q4H PRN PRN Administration SHORTNESS OF BREATH/WHEEZING Alprazolam 1 mg 09/17/21 22:00 09/25/21 21:36 Alprazolam 1 Mg Tablet PO 10/17/21 21:59 1 mg HS WILLIAM Administration Aspirin 81 mg 09/17/21 18:00 09/26/21 09:46 Aspirin 81 Mg Tablet.Ec PO 10/17/21 17:59 81 mg DAILY WILLIAM Administration Baricitinib 2 mg 09/18/21 10:00 09/26/21 09:46 Baricitinib 2 Mg Tablet PO 10/01/21 10:01 2 mg DAILY WILLIAM Administration Calcium Carbonate/Glycine 1,500 mg 09/23/21 21:18 09/24/21 22:02 Calcium Carbonate 750 Mg 750 Mg Tab.Chew PO 10/23/21 21:15 1,500 mg Q2H PRN PRN Administration GERD Chlorphenir/Hydrocodone Polistirex 5 ml 09/17/21 17:28 Hydrocodone/Chlorphen P-Stirex 1 Ml Tessie.Er.12h PO 10/17/21 17:27 [id number] PRN Dexamethasone Sodium Phosphate 8 mg 09/18/21 10:00 09/26/21 09:47 Dexamethasone Sod Phosphate 10 Mg/Ml IV 10/18/21 09:59 8 mg DAILY WILLIAM Administration Diphenhydramine/Hydrocorti/Nystatin 10 ml 09/26/21 13:00 09/26/21 13:39 Nystatin/Hc/Diphenhydramin 237 Ml Bottle PO 10/26/21 12:59 10 ml QID WILLIAM Administration Enoxaparin Sodium 60 mg 09/21/21 10:00 09/26/21 09:47 Enoxaparin Sodium 60 Mg/0.6 Ml Syringe SQ 10/21/21 09:59 60 mg DAILY WILLIAM Administration Famotidine 20 mg 09/24/21 10:00 09/26/21 09:47 Famotidine 20 Mg Tablet PO 10/24/21 09:59 20 mg BID WILLIAM Administration Lorazepam 1 mg 09/17/21 17:24 09/24/21 00:24 Lorazepam 1 Mg Tablet PO 10/17/21 17:23 1 mg Q4HPRN PRN Administration ANXIETY/SLEEP Lorazepam 1 mg 09/17/21 17:24 Lorazepam 2 Mg/1 Ml 2 Mg Vial IV 10/17/21 17:23 Q4HPRN PRN ANXIETY/SLEEP Ondansetron HCl 4 mg 09/17/21 17:27 Ondansetron Hcl 4 Mg/2 Ml Vial IV 10/17/21 17:26 Q6HPRN PRN NAUSEA/VOMITING Fluticasone/Salmeterol 2 puff 09/21/21 19:00 09/26/21 07:10 Fluticasone/Salmeterol 230/21 Common Canister IH 10/21/21 18:59 2 puff BIDRT WILLIAM Administration Simethicone 80 mg 09/23/21 19:43 09/23/21 21:23 Simethicone 80 Mg Tab.Chew PO 10/23/21 19:42 80 mg QID PRN PRN Administration Gas Pain Simvastatin 20 mg 09/17/21 18:00 09/26/21 09:47 Simvastatin 20 Mg Tablet PO 10/17/21 17:59 20 mg DAILY WILLIAM Administration Tamsulosin HCl 0.4 mg 09/17/21 18:00 09/26/21 10:12 Tamsulosin Hcl 0.4 Mg Cap PO 10/17/21 17:59 Not Given DAILY WILLIAM Trimethoprim/Sulfamethoxazole 1 tab 09/18/21 14:00 09/26/21 09:47 Smz/Tmp Ds Tablet 1 Tablet PO 10/18/21 13:59 1 tab BID WILLIAM Administration Discontinued Medications Generic Name Dose Route Start Last Admin Trade Name Freq PRN Reason Stop Dose Admin Albuterol/Ipratropium 3 ml 09/17/21 12:15 09/17/21 12:27 Ipratropium/Albuterol Sulfate 3 Ml Ampul.Neb IH 09/17/21 12:16 3 ml STAT ONE Administration Albuterol/Ipratropium Confirm 09/17/21 12:23 Ipratropium/Albuterol Sulfate 3 Ml Ampul.Neb Administered 09/17/21 12:24 Dose 3 ml IH .STK-MED ONE Alprazolam 1 mg 09/18/21 10:00 Alprazolam 1 Mg Tablet PO 10/18/21 09:59 DAILY WILLIAM Calcium Carbonate/Glycine 750 mg 09/23/21 21:16 Calcium Carbonate 750 Mg 750 Mg Tab.Chew PO 10/23/21 21:15 Q2H PRN PRN GERD Calcium Gluconate 1,000 mg 09/17/21 12:33 09/17/21 12:35 Calcium Gluconate 1000 Mg/10 Ml Vial IV 09/17/21 12:34 1,000 mg STAT ONE Administration Calcium Gluconate Confirm 09/17/21 12:35 Calcium Gluconate 1000 Mg/10 Ml Vial Administered 09/17/21 12:36 Dose 1,000 mg IV .STK-MED ONE Enoxaparin Sodium 40 mg 09/17/21 13:55 09/17/21 13:57 Enoxaparin Sodium 40 Mg/0.4 Ml Syringe SQ 09/17/21 13:56 40 mg STAT ONE Administration Enoxaparin Sodium Confirm 09/17/21 13:57 Enoxaparin Sodium 80 Mg/0.8 Ml Syringe Administered 09/17/21 13:58 Dose 80 mg SQ .STK-MED ONE Enoxaparin Sodium 40 mg 09/18/21 10:00 09/20/21 09:00 Enoxaparin Sodium 40 Mg/0.4 Ml Syringe SQ 10/18/21 09:59 40 mg DAILY WILLIAM Administration Famotidine Confirm 09/24/21 06:18 Famotidine 20 Mg Tablet Administered 09/24/21 06:19 Dose 20 mg .ROUTE .STK-MED ONE Sodium Chloride 1,000 mls @ 100 mls/hr 09/17/21 11:30 09/17/21 11:39 Sodium Chloride 0.9% 1000 Ml IV 10/17/21 11:29 100 mls/hr .Q10H WILLIAM Administration Vancomycin HCl 1 gm in 200 mls @ 125 mls/hr 09/17/21 12:16 09/17/21 12:34 Vancomycin 1 Gram/200 Ml Bag IV 09/17/21 13:51 125 mls/hr STAT ONE 125 mls/hr Administration Piperacillin Sod/Tazobactam 100 mls @ 200 mls/hr 09/17/21 18:00 Sod 3.375 gm/ Sodium Chloride IV 09/20/21 17:59 Q6HT WILLIAM Vancomycin HCl Confirm 09/17/21 12:33 Vancomycin 1 Gram/200 Ml Bag Administered 09/17/21 12:34 Dose 1 gm in 200 mls @ ud IV .STK-MED ONE Remdesivir 200 mg/ Sodium 250 mls @ 125 mls/hr 09/17/21 17:30 09/17/21 18:14 Chloride IV 09/17/21 19:29 125 mls/hr ONCE ONE Administration Remdesivir 100 mg/ Sodium 100 mls @ 100 mls/hr 09/18/21 10:00 09/21/21 10:14 Chloride IV 09/21/21 10:59 100 mls/hr DAILY WILLIAM Administration Loperamide HCl 2 mg 09/23/21 19:59 Loperamide Hcl 2 Mg Capsule PO 10/23/21 19:58 PRN PRN DIARRHEA Lorazepam 2 mg 09/24/21 22:00 09/24/21 22:01 Lorazepam 1 Mg Tablet PO 09/24/21 22:01 2 mg STAT ONE Administration Morphine Sulfate 4 mg 09/17/21 14:16 Morphine Sulfate 4 Mg/Ml Injection IV 09/22/21 14:15 Q4H PRN PRN PAIN Patient Own Med : 2 each 09/21/21 07:00 09/23/21 10:01 Symbicort IH 10/21/21 06:59 Not Given BIDRT WILLIAM Fluticasone/Salmeterol 2 puff 09/20/21 07:00 09/20/21 19:15 Fluticasone/Salmeterol 230/21 Common Canister IH 10/20/21 06:59 Not Given BIDRT WILLIAM Intake & Output (Last 24 hours) 09/24/21 09/25/21 09/26/21 09/27/21 11:59 11:59 11:59 11:59 Intake Total 570 1280 740 60 Output Total 1875 1475 1000 200 Balance -1305 -195 -260 -140 Laboratory Results (Last 24 hours) 09/26/21 09/26/21 09:43 09:43 WBC 18.1 H RBC 6.00 H Hgb 18.4 H Hct 55.6 H MCV 92.7 MCH 30.7 MCHC 33.1 RDW 13.6 Plt Count 520 H MPV 9.1 Sodium 133 L Potassium 5.2 H Chloride 92 L Carbon Dioxide 28 Anion Gap 17.5 H Orders (Last 24 hours) Category Date Time Status Code Status Change Order ROUTINE Care 09/26/21 13:19 Active CBC DAILY Lab 09/26/21 09:43 Completed ELECTROLYTE PANEL DAILY Lab 09/26/21 09:43 Completed Nystatin/TCN/Hc/Diphenhydramin [Dasia's Mouthwash] Med 09/26/21 13:00 Active 10 ml PO QID Patient Care Notes (Last 24 hours) 09/26/21 09:12 Case Management Note by Ewa Alvarado S/W [facility] REP [place] THIS AM- THEY WILL ALSO BE UNABLE TO SUPPORT PATIENT'S CURRENT OXYGEN DEMAND AT HOME. CALLED IN TO ROOM AND S/W PATIENT- WE TALKED ABOUT HOW IF WE ARE UNABLE TO SUPPLY HIS OXYGEN DEMAND AT HOME HE WILL LIKELY IN A SHORT AMOUNT OF TIME AND MAY EVEN IN TRANSPORT- PATIENT REPORTED HE WAS NOT READY FOR THAT. HE WAS UNDER THE UNDERSTANDING THAT HE COULD JUST DISCHARGE IN GENERAL ON HIS CURRENT OXYGEN FLOW- HE WAS NOT INTERESTED IN HOSPICE. WHEN I ASKED PATIENT IF ONCE HE GOT HOME IF HE GOT WORSE IF HE WOULD WANT HIS FAMILY TO BRING HIM BACK TO THE HOSPITAL- HE SAID YES. PATIENT NOT APPROPRIATE FOR HOSPICE AT THIS TIME. CALLED - LM, [facility]. WILL REACH OUT TO [facility]LL. NURSE TO ADDRESS CODE STATUS WITH PATIENT TODAY AGAIN WELL Initialized on 09/26/21 09:12 - END OF NOTE 09/25/21 18:15 Nursing Note by Alexandrea Starks DR. CALLED AND STATES THAT [facility] WILL NOT BE ABLE TO ACCEPT PT AND MEET OXYGEN REQUIREMENTS UNTIL TOMORROW MORNING. REPORTED THIS TO PT AND HE STATES HE THINKS HE CAN WAIT ONE MORE DAY BUT THAT IS IT. PATIENT EDUCATED THAT IF HE DISCHARGES FROM HOSPITAL AMA WITHOUT OXYGEN AT HOME THAT HE WILL . PATIENT STATES THAT HE DOES NOT FEEL LIKE THIS IS ACCURATE THAT HE IS ABLE TO BREATHE JUST FINE. AGAIN, PT REMOVING OXYGEN AND HIS SATS DROP TO LOW 70'S. EDUCATION PROVIDED TO PT AND PT RE-APPLIED OXYGEN AND SATS INCREASED BACK TO 89%. Initialized on 09/25/21 18:15 - END OF NOTE 09/25/21 17:44 Nursing Note by Alexandrea Starks FROM [facility] CALLED AND SPOKE TO THIS NURSE REGARDING REFERRAL FOR [facility] FROM DR. CUEVAS. PT AGREEABLE TO [facility] SER VICES IF ABLE TO PROVIDE OXYGEN NEEDS AT HOME. AWAITING A CALL BACK FROM [facility] REPRESENTAT[facility]. Initialized on 09/25/21 17:44 - END OF NOTE 09/25/21 17:14 Nursing Note by Alexandrea Starks PT AND REQUESTING FOR FAMILY TO D/C HOME WITH HOSPICE SERVICES TODAY. [facility] WAS CONTACTED AND ACCEPTED PATIENT AND STATED THAT THEY WOULD BE ABLE TO PROVIDE OXYGEN NEEDS AT HOME. [facility] ARRIVED FOR TRANSPORT AND PTS TELE AND IV WAS REMOVED. BEFORE LEAVING HOSPITAL WE WERE NOTIFIED THAT HOME OXYGEN WAS NOT ABLE TO BE PROVIDED AT HIGH FLOW RATE THE PT NEEDS SO TRANSPORT WAS CANCELLED. PT AND VERY UPSET ABOUT THIS. PT NOW REFUSING TO HAVE IV RESTARTED AND TELELMETRY PUT BACK ON. PT REMOVED HIGH FLOW OXYGEN PER SELF AND 02 SATS DOWN TO 71% ON ROOM AIR. DR. CUEVAS MADE AWARE. Initialized on 09/25/21 17:14 - END OF NOTE 09/25/21 16:30 (created 09/25/21 18:37) Case Management Note by Ewa Alvarado PRIMARY RN RECEIVED CALL FROM STATING THAT [facility] IS AT HER HOME AND REPORTS THEY WILL NOT BE ABLE TO PROVIDE OXYGEN NEEDS WITH EQUIPMENT AVAILABLE. CALLED AND CLARIFIED CURRENT OXYGEN SETTING WITH [facility]. THEY HAD SEEN ON SOME OF THE PAPERWORK SENT THAT PATIENT WAS ON 10L (THIS CHARTING WAS ERROR) AND WAS PREPARED TO SUPPLY THAT AMOUNT. WHEN NOTIFIED THAT PATIENT IS CURRENTLY ON 50L 100% VIA HIGH FLOW- THEY ARE CURRENTLY UNABLE TO SUPPLY THAT DEMAND AT HOME. AMBULANCE IS ALSO UNABLE TO SUPPLY THAT DEMAND FOR TRANSPORT. S/W ADAMARIS FROM [facility]- WILL PLACE HOSPICE DC ON HOLD AT THIS TIME. WILL REASSESS TOMORROW TO SEE IF RT CAN WORK WITH PATIENT TO GET HIM ON SOMETHING O2 ADAMS THAT HOSPICE CAN ACCOMODATE SUCH BIPAP. [facility] WILL KEEP ALL EQUIPMENT IN PLACE AT PATIENT'S HOME AT THIS TIME UNTIL A BETTER, MORE FINAL DECISION CAN BE MADE TOMORROW. ATTEMPTED TO CALL TO EXPLAIN THE PLAN SHE HAS CALLED [facility] AND [facility] AT THIS TIME VERY UPSET- NO ANSWER LEFT MESSAGE. HS NOTIFIED OF PLAN Initialized on 09/25/21 18:37 - END OF NOTE Code(s): J96.20 - ACUTE AND CHR RESP FAILURE, UNSP W HYPOXIA OR HYPERCAPNIA (2) COPD exacerbation Current Visit: Yes Status: Acute Code(s): J44.1 - CHRONIC OBSTRUCTIVE PULMONARY DISEASE W (ACUTE) EXACERBATION (3) Pneumonia due to COVID-19 virus Current Visit: Yes Status: Acute Code(s): U07.1 - COVID-19; J12.82 - PNEUMONIA DUE TO CORONAVIRUS DISEASE 2019 (4) SARS-CoV-2 positive Current Visit: Yes Status: Acute Code(s): U07.1 - COVID-19
[2021-09-26] MEDS: Tums EX 750 MG PO PRN (20:01)
[2021-09-26] MEDS: XANAX 1 MG PO SCH (20:55)
[2021-09-26] MEDS: MAALOX ES 30 ML UNIT DOSE PO PRN (21:19)
[2021-09-27] MEDS: Advair Hfa 230/21 Mcg COMMON CANISTER IH SCH ×2 (07:15→19:00)
--- NOTE | 2021-09-27 09:05 | PROG NOTE ---
Events noted. DATE: 09/26/2021 HISTORY: The patient is awake, comfortable, remains on high-flow currently at 40 liters 70% FIO2 saturating 85-90%. PHYSICAL EXAMINATION: HEENT: Normocephalic. Oral exam limited. CVS: First and second heart sounds are normal, regular, rhythmic. Mild tachycardia. RESPIRATORY: Shows diminished breath sounds. ABDOMEN: Soft. LABORATORY DATA AND TESTS: Labs reviewed. Chest x-ray dated 09/23/2021 reviewed as well. ASSESSMENT: This is a 76-year-old male admitted with: 1) Acute severe hypoxic respiratory failure. 2) COVID-19 with viral pneumonia. 3) Underlying chronic obstructive pulmonary disease. 4) Nicotine addiction. RECOMMENDATIONS: The patient remains marginal from pulmonary standpoint. Discussed with respiratory therapy. An attempt is being made to wean oxygen although this has been largely limited due to marginal oxygen saturation. I explained this to patient. Continue present therapy. The patient appears to have plateaued in his clinical improvement. PROGNOSIS: Remains guarded.
[2021-09-27] MEDS: Pepcid 20 MG PO SCH ×2 (09:30→21:00)
[2021-09-27] MEDS: ZOCOR 20MG PO SCH (09:30)
[2021-09-27] MEDS: MARY'S MOUTHWASH PO SCH ×4 (09:30→21:00)
[2021-09-27] MEDS: ENOXAPARIN SODIUM SQ SCH (09:30)
[2021-09-27] MEDS: BACTRIM DS TABLET PO SCH (09:30)
[2021-09-27] MEDS: DECADRON 10MG INJ. IV SCH (09:30)
[2021-09-27] MEDS: OLUMIANT PO SCH (09:30)
[2021-09-27] MEDS: ECOTRIN 81 MG PO SCH (09:30)
[2021-09-27] MEDS: Flomax 0.4 MG PO SCH (09:43)
--- NOTE | 2021-09-27 17:07 | PCM.NOTE ---
Date and Time: 09/27/21 1705 Subjective Assessment: doing ok. O2 is still low 80s - Review of Systems Constitutional: No Fever, No Chills Eyes: No Symptoms Ears, Nose, & Throat: No Symptoms Respiratory: No Cough, No Short Of Breath Cardiac: No Chest Pain, No Edema, No Syncope Abdominal/Gastrointestinal: No Abdominal Pain, No Nausea, No Vomiting, No Diarrhea Genitourinary Symptoms: No Dysuria Musculoskeletal: No Back Pain, No Neck Pain Skin: No Rash Neurological: No Dizziness, No Focal Weakness, No Sensory Changes Psychological: No Symptoms Endocrine: No Symptoms Hematologic/Lymphatic: No Symptoms Immunological/Allergic: No Symptoms Objective Exam General Appearance: no apparent distress, alert Neurologic Exam: alert, oriented x 3, cooperative, normal mood/affect, sensation nml, No motor deficits Skin Exam: normal color, warm, dry Wound Assessment: Skin/Wound Assessment Wound/Incision Assessment Start: 09/23/21 18:12 Text: Status: Active Freq: Q4H Protocol: Document 09/27/21 16:00 SHERLYN (Rec: 09/27/21 16:40 SHERLYN [id number]) Wound/Incision Assessment Posterior Coccyx Wound Assessment Shift Assessment Wound Type Pressure Ulcer Wound Stage Stage II Drainage Amount None Drainage Odor None/Absent General Appearance Well Approximated,Open to air Wound Bed Greatest Portion Pale [place] Wound Bed Lesser Portion Pale [place] [employer] Wound Photo Photo Taken No Eye Exam: PERRL, EOMI, eyes nml inspection Ears, Nose, Throat Exam: normal ENT inspection, pharynx normal, moist mucous membranes Neck Exam: normal inspection, non-tender, supple, full range of motion Respiratory Exam: normal breath sounds, lungs clear, No respiratory distress Cardiovascular Exam: regular rate/rhythm, normal heart sounds Gastrointestinal/Abdomen Exam: soft, No tenderness, No mass Extremity Exam: normal inspection, normal range of motion Back Exam: normal inspection, normal range of motion, No CVA tenderness, No vertebral tenderness Male Genitalia Exam: deferred Rectal Exam: deferred OBJECTIVE DATA Vital Signs: Vital Signs - 24 hr Temp Pulse Resp BP Pulse Ox 09/27/21 16:00 97.7 F 81 15 121/78 95 09/27/21 15:00 87 12 94 L 09/27/21 14:00 78 20 94 L 09/27/21 13:00 80 18 92 L 09/27/21 12:00 96.6 F 90 21 129/74 90 L 09/27/21 11:00 96 H 10 L 80 L 09/27/21 10:00 81 18 90 L 09/27/21 09:00 76 18 94 L 09/27/21 08:29 77 20 92 L 09/27/21 08:00 97.4 F 91 H 19 129/65 83 L 09/27/21 07:00 75 20 92 L 09/27/21 06:00 71 20 92 L 09/27/21 05:00 74 20 93 L 09/27/21 04:00 97.2 F 87 16 129/74 91 L 09/27/21 03:00 76 20 96 09/27/21 01:57 77 21 98 09/27/21 00:54 79 21 96 09/27/21 00:00 80 21 94 L 09/26/21 23:00 94 L 09/26/21 22:00 97.5 F 81 20 133/70 95 09/26/21 21:00 97.5 F 87 27 H 92 L 09/26/21 20:00 97.5 F 87 27 H 133/70 92 L 09/26/21 19:40 94 H 18 95 09/26/21 19:00 86 28 H 94 L 09/26/21 17:34 89 14 88 L Pain Assessment - Last Documented Pain Intensity 0 Intake and Output: Intake & Output 09/25/21 09/26/21 09/27/21 09/28/21 11:59 11:59 11:59 11:59 Intake Total 1280 740 770 240 Output Total 1475 1000 750 Balance -195 -260 20 240 Multi-Disciplinary Progress Notes: Multi-Disciplinary Progress Notes 09/26/21 21:46 Respiratory Note by Angeles Ryan Oxygen weaned to 13L oxymizer. Tolerating well. Reassessed after 20 minutes. SpO2 94%. Initialized on 09/26/21 21:46 - END OF NOTE Assessment/Plan (1) Acute and chronic respiratory failure ([id number]) Current Visit: Yes Status: Acute Qualifiers: Respiratory failure complication: hypoxia and hypercapnia Qualified Code(s): J96.21 - Acute and chronic respiratory failure with hypoxia; J96.22 - Acute and chronic respiratory failure with hypercapnia Assessment & Plan: Chief Complaint Diagnosis Covid, Hypoxia, Weakness Allergies Allergy/AdvReac Type Severity Reaction Status Date / Time azithromycin [From Zithromax] Allergy Unknown Verified 09/17/21 11:13 ceftriaxone Allergy Unknown Verified 09/17/21 11:13 prednisone Allergy Unknown Verified 09/17/21 11:13 Vital Signs (Last 24 hours) Temp Pulse Resp BP Pulse Ox 09/27/21 16:00 97.7 F 81 15 121/78 95 09/27/21 15:00 87 12 94 L 09/27/21 14:00 78 20 94 L 09/27/21 13:00 80 18 92 L 09/27/21 12:00 96.6 F 90 21 129/74 90 L 09/27/21 11:00 96 H 10 L 80 L 09/27/21 10:00 81 18 90 L 09/27/21 09:00 76 18 94 L 09/27/21 08:29 77 20 92 L 09/27/21 08:00 97.4 F 91 H 19 129/65 83 L 09/27/21 07:00 75 20 92 L 09/27/21 06:00 71 20 92 L 09/27/21 05:00 74 20 93 L 09/27/21 04:00 97.2 F 87 16 129/74 91 L 09/27/21 03:00 76 20 96 09/27/21 01:57 77 21 98 09/27/21 00:54 79 21 96 09/27/21 00:00 80 21 94 L 09/26/21 23:00 94 L 09/26/21 22:00 97.5 F 81 20 133/70 95 09/26/21 21:00 97.5 F 87 27 H 92 L 09/26/21 20:00 97.5 F 87 27 H 133/70 92 L 09/26/21 19:40 94 H 18 95 09/26/21 19:00 86 28 H 94 L 09/26/21 17:34 89 14 88 L Home Medications Medication Instructions Recorded Confirmed Last Taken Type ALPRAZolam 1 MG [Xanax 1 mg] 1 mg PO DAILY 09/17/21 09/17/21 Unknown History Aspirin [Aspirin EC] 81 mg PO DAILY 09/17/21 09/17/21 Unknown History Current Medications Generic Name Dose Route Start Last Admin Trade Name Freq PRN Reason Stop Dose Admin Acetaminophen 1,000 mg 09/17/21 17:27 Acetaminophen 500 Mg Tablet PO 10/17/21 17:26 Q4HPRN PRN ORAL TEMP >100.4 Al Hydrox/Mg Hydrox/Simethicone 30 ml 09/24/21 06:07 09/26/21 21:19 Mag Hydrox/Al Hydrox/Simeth 30 Ml Udcup PO 10/24/21 06:06 30 ml Q2H PRN PRN Administration INDIGESTION Albuterol Sulfate 4 puff 09/19/21 19:31 09/25/21 19:30 Albuterol Common Canister Inhaler IH 10/19/21 19:30 4 puff Q4H PRN PRN Administration SHORTNESS OF BREATH/WHEEZING Alprazolam 1 mg 09/17/21 22:00 09/26/21 20:55 Alprazolam 1 Mg Tablet PO 10/17/21 21:59 1 mg HS WILLIAM Administration Aspirin 81 mg 09/17/21 18:00 09/27/21 09:30 Aspirin 81 Mg Tablet.Ec PO 10/17/21 17:59 81 mg DAILY WILLIAM Administration Baricitinib 2 mg 09/18/21 10:00 09/27/21 09:30 Baricitinib 2 Mg Tablet PO 10/01/21 10:01 2 mg DAILY WILLIAM Administration Calcium Carbonate/Glycine 1,500 mg 09/23/21 21:18 09/26/21 20:01 Calcium Carbonate 750 Mg 750 Mg Tab.Chew PO 10/23/21 21:15 1,500 mg Q2H PRN PRN Administration GERD Chlorphenir/Hydrocodone Polistirex 5 ml 09/17/21 17:28 Hydrocodone/Chlorphen P-Stirex 1 Ml Tessie.Er.12h PO 10/17/21 17:27 [id number] PRN Dexamethasone Sodium Phosphate 8 mg 09/18/21 10:00 09/27/21 09:30 Dexamethasone Sod Phosphate 10 Mg/Ml IV 10/18/21 09:59 8 mg DAILY WILLIAM Administration Diphenhydramine/Hydrocorti/Nystatin 10 ml 09/26/21 13:00 09/27/21 12:50 Nystatin/Hc/Diphenhydramin 237 Ml Bottle PO 10/26/21 12:59 10 ml QID WILLIAM Administration Enoxaparin Sodium 60 mg 09/21/21 10:00 09/27/21 09:30 Enoxaparin Sodium 60 Mg/0.6 Ml Syringe SQ 10/21/21 09:59 60 mg DAILY WILLIAM Administration Famotidine 20 mg 09/24/21 10:00 09/27/21 09:30 Famotidine 20 Mg Tablet PO 10/24/21 09:59 20 mg BID WILLIAM Administration Lorazepam 1 mg 09/17/21 17:24 09/24/21 00:24 Lorazepam 1 Mg Tablet PO 10/17/21 17:23 1 mg Q4HPRN PRN Administration ANXIETY/SLEEP Lorazepam 1 mg 09/17/21 17:24 Lorazepam 2 Mg/1 Ml 2 Mg Vial IV 10/17/21 17:23 Q4HPRN PRN ANXIETY/SLEEP Ondansetron HCl 4 mg 09/17/21 17:27 Ondansetron Hcl 4 Mg/2 Ml Vial IV 10/17/21 17:26 Q6HPRN PRN NAUSEA/VOMITING Fluticasone/Salmeterol 2 puff 09/21/21 19:00 09/27/21 07:15 Fluticasone/Salmeterol 230/21 Common Canister IH 10/21/21 18:59 2 puff BIDRT WILLIAM Administration Simethicone 80 mg 09/23/21 19:43 09/23/21 21:23 Simethicone 80 Mg Tab.Chew PO 10/23/21 19:42 80 mg QID PRN PRN Administration Gas Pain Simvastatin 20 mg 09/17/21 18:00 09/27/21 09:30 Simvastatin 20 Mg Tablet PO 10/17/21 17:59 20 mg DAILY WILLIAM Administration Tamsulosin HCl 0.4 mg 09/17/21 18:00 09/27/21 09:43 Tamsulosin Hcl 0.4 Mg Cap PO 10/17/21 17:59 Not Given DAILY WILLIAM Discontinued Medications Generic Name Dose Route Start Last Admin Trade Name Freq PRN Reason Stop Dose Admin Albuterol/Ipratropium 3 ml 09/17/21 12:15 09/17/21 12:27 Ipratropium/Albuterol Sulfate 3 Ml Ampul.Neb IH 09/17/21 12:16 3 ml STAT ONE Administration Albuterol/Ipratropium Confirm 09/17/21 12:23 Ipratropium/Albuterol Sulfate 3 Ml Ampul.Neb Administered 09/17/21 12:24 Dose 3 ml IH .STK-MED ONE Alprazolam 1 mg 09/18/21 10:00 Alprazolam 1 Mg Tablet PO 10/18/21 09:59 DAILY WILLIAM Calcium Carbonate/Glycine 750 mg 09/23/21 21:16 Calcium Carbonate 750 Mg 750 Mg Tab.Chew PO 10/23/21 21:15 Q2H PRN PRN GERD Calcium Gluconate 1,000 mg 09/17/21 12:33 09/17/21 12:35 Calcium Gluconate 1000 Mg/10 Ml Vial IV 09/17/21 12:34 1,000 mg STAT ONE Administration Calcium Gluconate Confirm 09/17/21 12:35 Calcium Gluconate 1000 Mg/10 Ml Vial Administered 09/17/21 12:36 Dose 1,000 mg IV .STK-MED ONE Enoxaparin Sodium 40 mg 09/17/21 13:55 09/17/21 13:57 Enoxaparin Sodium 40 Mg/0.4 Ml Syringe SQ 09/17/21 13:56 40 mg STAT ONE Administration Enoxaparin Sodium Confirm 09/17/21 13:57 Enoxaparin Sodium 80 Mg/0.8 Ml Syringe Administered 09/17/21 13:58 Dose 80 mg SQ .STK-MED ONE Enoxaparin Sodium 40 mg 09/18/21 10:00 09/20/21 09:00 Enoxaparin Sodium 40 Mg/0.4 Ml Syringe SQ 10/18/21 09:59 40 mg DAILY WILLIAM Administration Famotidine Confirm 09/24/21 06:18 Famotidine 20 Mg Tablet Administered 09/24/21 06:19 Dose 20 mg .ROUTE .STK-MED ONE Sodium Chloride 1,000 mls @ 100 mls/hr 09/17/21 11:30 09/17/21 11:39 Sodium Chloride 0.9% 1000 Ml IV 10/17/21 11:29 100 mls/hr .Q10H WILLIAM Administration Vancomycin HCl 1 gm in 200 mls @ 125 mls/hr 09/17/21 12:16 09/17/21 12:34 Vancomycin 1 Gram/200 Ml Bag IV 09/17/21 13:51 125 mls/hr STAT ONE 125 mls/hr Administration Piperacillin Sod/Tazobactam 100 mls @ 200 mls/hr 09/17/21 18:00 Sod 3.375 gm/ Sodium Chloride IV 09/20/21 17:59 Q6HT WILLIAM Vancomycin HCl Confirm 09/17/21 12:33 Vancomycin 1 Gram/200 Ml Bag Administered 09/17/21 12:34 Dose 1 gm in 200 mls @ ud IV .STK-MED ONE Remdesivir 200 mg/ Sodium 250 mls @ 125 mls/hr 09/17/21 17:30 09/17/21 18:14 Chloride IV 09/17/21 19:29 125 mls/hr ONCE ONE Administration Remdesivir 100 mg/ Sodium 100 mls @ 100 mls/hr 09/18/21 10:00 09/21/21 10:14 Chloride IV 09/21/21 10:59 100 mls/hr DAILY WILLIAM Administration Loperamide HCl 2 mg 09/23/21 19:59 Loperamide Hcl 2 Mg Capsule PO 10/23/21 19:58 PRN PRN DIARRHEA Lorazepam 2 mg 09/24/21 22:00 09/24/21 22:01 Lorazepam 1 Mg Tablet PO 09/24/21 22:01 2 mg STAT ONE Administration Morphine Sulfate 4 mg 09/17/21 14:16 Morphine Sulfate 4 Mg/Ml Injection IV 09/22/21 14:15 Q4H PRN PRN PAIN Patient Own Med : 2 each 09/21/21 07:00 09/23/21 10:01 Symbicort 10/21/21 06:59 Not Given BIDRT WILLIAM Fluticasone/Salmeterol 2 puff 09/20/21 07:00 09/20/21 19:15 Fluticasone/Salmeterol 230/21 Common Canister 10/20/21 06:59 Not Given BIDRT WILLIAM Trimethoprim/Sulfamethoxazole 1 tab 09/18/21 14:00 09/27/21 09:30 Smz/Tmp Ds Tablet 1 Tablet PO 10/18/21 13:59 1 tab BID WILLIAM Administration Intake & Output (Last 24 hours) 09/25/21 09/26/21 09/27/21 09/28/21 11:59 11:59 11:59 11:59 Intake Total 1280 740 770 240 Output Total 1475 1000 750 Balance -195 -260 20 240 Patient Care Notes (Last 24 hours) 09/26/21 21:46 Respiratory Note by Angeles Ryan Oxygen weaned to 13L oxymizer. Tolerating well. Reassessed after 20 minutes. SpO2 94%. Initialized on 09/26/21 21:46 - END OF NOTE Code(s): J96.20 - ACUTE AND CHR RESP FAILURE, UNSP W HYPOXIA OR HYPERCAPNIA (2) COPD exacerbation Current Visit: Yes Status: Acute Code(s): J44.1 - CHRONIC OBSTRUCTIVE PULMONARY DISEASE W (ACUTE) EXACERBATION (3) Pneumonia due to COVID-19 virus Current Visit: Yes Status: Acute Code(s): U07.1 - COVID-19; J12.82 - PNEUMONIA DUE TO CORONAVIRUS DISEASE 2019 (4) SARS-CoV-2 positive Current Visit: Yes Status: Acute Code(s): U07.1 - COVID-19
[2021-09-27] MEDS: XANAX 1 MG PO SCH (21:00)
[2021-09-28] MEDS: Advair Hfa 230/21 Mcg COMMON CANISTER IH SCH ×2 (08:07→19:21)
[2021-09-28] MEDS: DECADRON 10MG INJ. IV SCH (09:38)
[2021-09-28] MEDS: OLUMIANT PO SCH (09:38)
[2021-09-28] MEDS: ENOXAPARIN SODIUM SQ SCH (09:38)
[2021-09-28] MEDS: Flomax 0.4 MG PO SCH (09:38)
[2021-09-28] MEDS: ECOTRIN 81 MG PO SCH (09:38)
[2021-09-28] MEDS: ZOCOR 20MG PO SCH (09:38)
[2021-09-28] MEDS: Pepcid 20 MG PO SCH ×2 (09:39→22:29)
[2021-09-28] MEDS: MARY'S MOUTHWASH PO SCH ×4 (09:39→22:29)
[2021-09-28 10:37] LABS: Hematocrit 52.6 % (42-50); Hemoglobin 17.2 gm/dl (12.5-18.0); Mean Cell Volume 94.3 fl (78-100); Mean Corpuscular Hemoglobin 30.8 pg (26-32); Mean Corpuscular Hgb Concent. 32.7 g/dl (32-36); Mean Platelet Volume 8.9 fl (7.5-11.0); Platelet Count 453 K/mm3 (150-450); Red Blood Count 5.58 M/mm3 (4.1-5.6); Red Cell Distribution Width 13.4 % (11.5-14.0)
[2021-09-28 10:46] LABS: White Blood Count 25.6 K/mm3 (4.0-10.5)
[2021-09-28 10:49] LABS: ALBUMIN 3.6 g/dL (3.5-5.0); ALKALINE PHOSPHATASE 78 U/L (38-126); ANION GAP 12.7 MEQ/L (5-15); BLOOD UREA NITROGEN 36 mg/dL (9-20); CHLORIDE 94 mmol/L (98-107); Calcium 8.5 mg/dL (8.4-10.2); Carbon Dioxide 29 mmol/L (22-30); Creatinine 1 1.12 mg/dL (0.66-1.25); EST GLOMERULAR FILTRATION RATE > 60.0 ML/MIN; Glucose 104 mg/dL (74-106); Potassium 4.7 mmol/L (3.5-5.1); SGOT/AST 62 U/L (17-59); SGPT/ALT 162 U/L (0-50); SODIUM 131 mmol/L (137-145); Total Protein 6.6 g/dL (6.3-8.2)
[2021-09-28] MEDS: Levaquin 250MG/50ML D5W 250 MG/50 ML BAG IV SCH (14:51)
--- NOTE | 2021-09-28 17:34 | PCM.NOTE ---
Date and Time: 09/28/211731 Subjective Assessment: still very short of breath - Review of Systems Constitutional: No Fever, No Chills Eyes: No Symptoms Ears, Nose, & Throat: No Symptoms Respiratory: Short Of Breath, Wheezing, No Cough Cardiac: No Chest Pain, No Edema, No Syncope Abdominal/Gastrointestinal: No Abdominal Pain, No Nausea, No Vomiting, No Diarrhea Genitourinary Symptoms: No Dysuria Musculoskeletal: No Back Pain, No Neck Pain Skin: No Rash Neurological: No Dizziness, No Focal Weakness, No Sensory Changes Psychological: No Symptoms Endocrine: No Symptoms Hematologic/Lymphatic: No Symptoms Immunological/Allergic: No Symptoms Objective Exam General Appearance: no apparent distress, alert Neurologic Exam: alert, oriented x 3, cooperative, normal mood/affect, nml cerebellar function, sensation nml, No motor deficits Skin Exam: normal color, warm, dry Wound Assessment: Skin/Wound Assessment Wound/Incision Assessment Start: 09/23/21 18:12 Text: Status: Active Freq: Q4H Protocol: Document 09/28/21 16:00 MW (Rec: 09/28/21 17:21 MW [id number]) Wound/Incision Assessment Posterior Coccyx Wound Assessment Shift Assessment Wound Type Pressure Ulcer Wound Stage Stage II Drainage Amount None Drainage Odor None/Absent General Appearance Well Approximated,Open to air Wound Bed Greatest Portion Pale [place] Wound Bed Lesser Portion Pale [place] Wound Photo Photo Taken No Eye Exam: PERRL, EOMI, eyes nml inspection Ears, Nose, Throat Exam: normal ENT inspection, pharynx normal, moist mucous membranes Neck Exam: normal inspection, non-tender, supple, full range of motion Respiratory Exam: diminished breath sounds, crackles/rales, rhonchi, wheezing, No respiratory distress Cardiovascular Exam: regular rate/rhythm, normal heart sounds Gastrointestinal/Abdomen Exam: soft, No tenderness, No mass Extremity Exam: normal inspection, normal range of motion Back Exam: normal inspection, normal range of motion, No CVA tenderness, No vertebral tenderness Male Genitalia Exam: deferred Rectal Exam: deferred OBJECTIVE DATA Vital Signs: Vital Signs - 24 hr Temp Pulse Resp BP Pulse Ox 09/28/21 17:21 22 09/28/21 16:00 22 09/28/21 15:00 101 H 22 93 L 09/28/21 14:00 98 H 21 90 L 09/28/21 13:00 91 H 13 09/28/21 12:00 90 8 L 86 L 09/28/21 11:34 18 09/28/21 11:00 97.3 F 101 H 20 137/65 80 L 09/28/21 10:00 81 8 L 97 09/28/21 09:00 73 22 95 09/28/21 08:07 71 18 93 L 09/28/21 08:00 97.2 F 73 22 127/70 93 L 09/28/21 07:00 70 19 95 09/28/21 06:00 68 17 95 09/28/21 05:00 68 17 92 L 09/28/21 04:00 71 19 97 09/28/21 02:55 68 16 97 09/28/21 02:00 71 19 98 09/28/21 01:00 73 19 96 09/28/21 00:00 75 20 94 L 09/27/21 23:00 82 15 94 L 09/27/21 21:59 82 21 93 L 09/27/21 20:50 83 23 91 L 09/27/21 20:00 97.1 F 84 18 127/67 93 L 09/27/21 19:00 84 17 93 L 09/27/21 18:00 81 19 96 Pain Assessment - Last Documented Pain Intensity 0 Intake and Output: Intake & Output 09/26/21 09/27/21 09/28/21 09/29/21 11:59 11:59 11:59 11:59 Intake Total 415 630 3030 240 Output Total 7778 736 8522 300 Balance -260 20 940 -60 Lab Results: Lab Results-Last 24 Hours 09/28/21 09/28/21 09/28/21 Range/Units 10:30 10:30 10:30 WBC 25.6 H* (4.0-10.5) K/mm3 RBC 5.58 (4.1-5.6) M/mm3 Hgb 17.2 (12.5-18.0) gm/dl Hct 52.6 H (42-50) % MCV 94.3 (78-100) fl MCH 30.8 (26-32) pg MCHC 32.7 (32-36) g/dl RDW 13.4 (11.5-14.0) % Plt Count 453 H (150-450) K/mm3 MPV 8.9 (7.5-11.0) fl D-Dimer 1199 H* (215-500) ng/mL Sodium 131 L (137-145) mmol/L Potassium 4.7 (3.5-5.1) mmol/L Chloride 94 L (98-107) mmol/L Carbon Dioxide 29 (22-30) mmol/L Anion Gap 12.7 (5-15) MEQ/L BUN 36 H (9-20) mg/dL Creatinine 1.12 (0.66-1.25) mg/dL Estimated GFR > 60.0 ML/MIN Glucose 104 (74-106) mg/dL Calcium 8.5 (8.4-10.2) mg/dL Total Bilirubin 1.10 (0.2-1.3) mg/dL AST 62 H (17-59) U/L ALT 162 H (0-50) U/L Alkaline Phosphatase 78 (38-126) U/L Serum Total Protein 6.6 (6.3-8.2) g/dL Albumin 3.6 (3.5-5.0) g/dL Multi-Disciplinary Progress Notes: Multi-Disciplinary Progress Notes 09/28/21 09:01 Case Management Note by Ewa Alvarado PATIENT STILL ACUTELY ILL- WILL NEED DC NEEDS REASSESSED AT TIME OF DC. PATIENT IS NORMALLY INDEPENDENT AND LIVES WITH HIS . HE DOES NOT WEAR ANY HOME OXYGEN Initialized on 09/28/21 09:01 - END OF NOTE Assessment/Plan (1) Acute and chronic respiratory failure ([id number]) Current Visit: Yes Status: Acute Qualifiers: Respiratory failure complication: hypoxia and hypercapnia Qualified Code(s): J96.21 - Acute and chronic respiratory failure with hypoxia; J96.22 - Acute and chronic respiratory failure with hypercapnia Assessment & Plan: Chief Complaint Diagnosis Covid, Hypoxia, Weakness Allergies Allergy/AdvReac Type Severity Reaction Status Date / Time azithromycin [From Zithromax] Allergy Unknown Verified 09/17/21 11:13 ceftriaxone Allergy Unknown Verified 09/17/21 11:13 prednisone Allergy Unknown Verified 09/17/21 11:13 Vital Signs (Last 24 hours) Temp Pulse Resp BP Pulse Ox 09/28/21 17:21 22 09/28/21 16:00 22 09/28/21 15:00 101 H 22 93 L 09/28/21 14:00 98 H 21 90 L 09/28/21 13:00 91 H 13 09/28/21 12:00 90 8 L 86 L 09/28/21 11:34 18 09/28/21 11:00 97.3 F 101 H 20 137/65 80 L 09/28/21 10:00 81 8 L 97 09/28/21 09:00 73 22 95 09/28/21 08:07 71 18 93 L 09/28/21 08:00 97.2 F 73 22 127/70 93 L 09/28/21 07:00 70 19 95 09/28/21 06:00 68 17 95 09/28/21 05:00 68 17 92 L 09/28/21 04:00 71 19 97 09/28/21 02:55 68 16 97 09/28/21 02:00 71 19 98 09/28/21 01:00 73 19 96 09/28/21 00:00 75 20 94 L 09/27/21 23:00 82 15 94 L 09/27/21 21:59 82 21 93 L 09/27/21 20:50 83 23 91 L 09/27/21 20:00 97.1 F 84 18 127/67 93 L 09/27/21 19:00 84 17 93 L 09/27/21 18:00 81 19 96 Home Medications Medication Instructions Recorded Confirmed Last Taken Type ALPRAZolam 1 MG [Xanax 1 mg] 1 mg PO DAILY 09/17/21 09/17/21 Unknown Histo ry Aspirin [Aspirin EC] 81 mg PO DAILY 09/17/21 09/17/21 Unknown History Current Medications Generic Name Dose Route Start Last Admin Trade Name Fre PRN Reason Stop Dose Admin Acetaminophen 1,000 mg 09/17/21 17:27 Acetaminophen 500 Mg Tablet PO 10/17/21 17:26 Q4HPRN PRN ORAL TEMP >100.4 Al Hydrox/Mg Hydrox/Simethicone 30 ml 09/24/21 06:07 09/26/21 21:19 Mag Hydrox/Al Hydrox/Simeth 30 Ml Udcup PO 10/24/21 06:06 30 ml Q2H PRN PRN Administration INDIGESTION Albuterol Sulfate 4 puff 09/19/21 19:31 09/25/21 19:30 Albuterol Common Canister Inhaler IH 10/19/21 19:30 4 puff Q4H PRN PRN Administration SHORTNESS OF BREATH/WHEEZING Alprazolam 1 mg 09/17/21 22:00 09/27/21 21:00 Alprazolam 1 Mg Tablet PO 10/17/21 21:59 1 mg HS WILLIAM Administration Aspirin 81 mg 09/17/21 18:00 09/28/21 09:38 Aspirin 81 Mg Tablet.Ec PO 10/17/21 17:59 81 mg DAILY WILLIAM Administration Baricitinib 2 mg 09/18/21 10:00 09/28/21 09:38 Baricitinib 2 Mg Tablet PO 10/01/21 10:01 2 mg DAILY WILLIAM Administration Calcium Carbonate/Glycine 1,500 mg 09/23/21 21:18 09/26/21 20:01 Calcium Carbonate 750 Mg 750 Mg Tab.Chew PO 10/23/21 21:15 1,500 mg Q2H PRN PRN Administration GERD Chlorphenir/Hydrocodone Polistirex 5 ml 09/17/21 17:28 Hydrocodone/Chlorphen P-Stirex 1 Ml Tessie.Er.12h PO 10/17/21 17:27 [id number] PRN Dexamethasone Sodium Phosphate 8 mg 09/18/21 10:00 09/28/21 09:38 Dexamethasone Sod Phosphate 10 Mg/Ml IV 10/18/21 09:59 8 mg DAILY WILLIAM Administration Diphenhydramine/Hydrocorti/Nystatin 10 ml 09/26/21 13:00 09/28/21 17:16 Nystatin/Hc/Diphenhydramin 237 Ml Bottle PO 10/26/21 12:59 10 ml QID WILLIAM Administration Enoxaparin Sodium 60 mg 09/21/21 10:00 09/28/21 09:38 Enoxaparin Sodium 60 Mg/0.6 Ml Syringe SQ 10/21/21 09:59 60 mg DAILY WILLIAM Administration Famotidine 20 mg 09/24/21 10:00 09/28/21 09:39 Famotidine 20 Mg Tablet PO 10/24/21 09:59 20 mg BID WILLIAM Administration Levofloxacin/Dextrose 250 mg in 50 mls @ 50 mls/hr 09/28/21 14:00 09/28/21 14:51 Levaquin 250mg/50ml D5w IV 10/28/21 13:59 50 mls/hr QAM WILLIAM Administration Lorazepam 1 mg 09/17/21 17:24 09/24/21 00:24 Lorazepam 1 Mg Tablet PO 10/17/21 17:23 1 mg Q4HPRN PRN Administration ANXIETY/SLEEP Lorazepam 1 mg 09/17/21 17:24 Lorazepam 2 Mg/1 Ml 2 Mg Vial IV 10/17/21 17:23 Q4HPRN PRN ANXIETY/SLEEP Ondansetron HCl 4 mg 09/17/21 17:27 Ondansetron Hcl 4 Mg/2 Ml Vial IV 10/17/21 17:26 Q6HPRN PRN NAUSEA/VOMITING Fluticasone/Salmeterol 2 puff 09/21/21 19:00 09/28/21 08:07 Fluticasone/Salmeterol / Common Canister IH 10/21/21 18:59 2 puff BIDRT WILLIAM Administration Simethicone 80 mg 09/23/21 19:43 09/23/21 21:23 Simethicone 80 Mg Tab.Chew PO 10/23/21 19:42 80 mg QID PRN PRN Administration Gas Pain Simvastatin 20 mg 09/17/21 18:00 09/28/21 09:38 Simvastatin 20 Mg Tablet PO 10/17/21 17:59 20 mg DAILY WILLIAM Administration Tamsulosin HCl 0.4 mg 09/17/21 18:00 09/28/21 09:38 Tamsulosin Hcl 0.4 Mg Cap PO 10/17/21 17:59 0.4 mg DAILY WILLIAM Administration Discontinued Medications Generic Name Dose Route Start Last Admin Trade Name Freq PRN Reason Stop Dose Admin Albuterol/Ipratropium 3 ml 09/17/21 12:15 09/17/21 12:27 Ipratropium/Albuterol Sulfate 3 Ml Ampul.Neb IH 09/17/21 12:16 3 ml STAT ONE Administration Albuterol/Ipratropium Confirm 09/17/21 12:23 Ipratropium/Albuterol Sulfate 3 Ml Ampul.Neb Administered 09/17/21 12:24 Dose 3 ml IH .STK-MED ONE Alprazolam 1 mg 09/18/21 10:00 Alprazolam 1 Mg Tablet PO 10/18/21 09:59 DAILY WILLIAM Calcium Carbonate/Glycine 750 mg 09/23/21 21:16 Calcium Carbonate 750 Mg 750 Mg Tab.Chew PO 10/23/21 21:15 Q2H PRN PRN GERD Calcium Gluconate 1,000 mg 09/17/21 12:33 09/17/21 12:35 Calcium Gluconate 1000 Mg/10 Ml Vial IV 09/17/21 12:34 1,000 mg STAT ONE Administration Calcium Gluconate Confirm 09/17/21 12:35 Calcium Gluconate 1000 Mg/10 Ml Vial Administered 09/17/21 12:36 Dose 1,000 mg IV .STK-MED ONE Enoxaparin Sodium 40 mg 09/17/21 13:55 09/17/21 13:57 Enoxaparin Sodium 40 Mg/0.4 Ml Syringe SQ 09/17/21 13:56 40 mg STAT ONE Administration Enoxaparin Sodium Confirm 09/17/21 13:57 Enoxaparin Sodium 80 Mg/0.8 Ml Syringe Administered 09/17/21 13:58 Dose 80 mg SQ .STK-MED ONE Enoxaparin Sodium 40 mg 09/18/21 10:00 09/20/21 09:00 Enoxaparin Sodium 40 Mg/0.4 Ml Syringe SQ 10/18/21 09:59 40 mg DAILY WILLIAM Administration Famotidine Confirm 09/24/21 06:18 Famotidine 20 Mg Tablet Administered 09/24/21 06:19 Dose 20 mg .ROUTE .STK-MED ONE Sodium Chloride 1,000 mls @ 100 mls/hr 09/17/21 11:30 09/17/21 11:39 Sodium Chloride 0.9% 1000 Ml IV 10/17/21 11:29 100 mls/hr .Q10H WILLIAM Administration Vancomycin HCl 1 gm in 200 mls @ 125 mls/hr 09/17/21 12:16 09/17/21 12:34 Vancomycin 1 Gram/200 Ml Bag IV 09/17/21 13:51 125 mls/hr STAT ONE 125 mls/hr Administration Piperacillin Sod/Tazobactam 100 mls @ 200 mls/hr 09/17/21 18:00 Sod 3.375 gm/ Sodium Chloride IV 09/20/21 17:59 Q6HT WILLIAM Vancomycin HCl Confirm 09/17/21 12:33 Vancomycin 1 Gram/200 Ml Bag Administered 09/17/21 12:34 Dose 1 gm in 200 mls @ ud IV .STK-MED ONE Remdesivir 200 mg/ Sodium 250 mls @ 125 mls/hr 09/17/21 17:30 09/17/21 18:14 Chloride IV 09/17/21 19:29 125 mls/hr ONCE ONE Administration Remdesivir 100 mg/ Sodium 100 mls @ 100 mls/hr 09/18/21 10:00 09/21/21 10:14 Chloride IV 09/21/21 10:59 100 mls/hr DAILY WILLIAM Administration Loperamide HCl 2 mg 09/23/21 19:59 Loperamide Hcl 2 Mg Capsule PO 10/23/21 19:58 PRN PRN DIARRHEA Lorazepam 2 mg 09/24/21 22:00 09/24/21 22:01 Lorazepam 1 Mg Tablet PO 09/24/21 22:01 2 mg STAT ONE Administration Morphine Sulfate 4 mg 09/17/21 14:16 Morphine Sulfate 4 Mg/Ml Injection IV 09/22/21 14:15 Q4H PRN PRN PAIN Patient Own Med : 2 each 09/21/21 07:00 09/23/21 10:01 Symbicort IH 10/21/21 06:59 Not Given BIDRT WILLIAM Fluticasone/Salmeterol 2 puff 09/20/21 07:00 09/20/21 19:15 Fluticasone/Salmeterol 230/ Common Canister 10/20/21 06:59 Not Given BIDRT WILLIAM Trimethoprim/Sulfamethoxazole 1 tab 09/18/21 14:00 09/27/21 09:30 Smz/Tmp Ds Tablet 1 Tablet PO 10/18/21 13:59 1 tab BID WILLIAM Administration Intake & Output (Last 24 hours) 09/26/21 09/27/21 09/28/21 09/29/21 11:59 11:59 11:59 11:59 Intake Total 309 697 5158 240 Output Total 3291 439 5345 300 Balance -260 20 940 -60 Laboratory Results (Last 24 hours) 09/28/21 09/28/21 09/28/21 10:30 10:30 10:30 WBC 25.6 H* RBC 5.58 Hgb 17.2 Hct 52.6 H MCV 94.3 MCH 30.8 MCHC 32.7 RDW 13.4 Plt Count 453 H MPV 8.9 D-Dimer 1199 H* Sodium 131 L Potassium 4.7 Chloride 94 L Carbon Dioxide 29 Anion Gap 12.7 BUN 36 H Creatinine 1.12 Estimated GFR > 60.0 Glucose 104 Calcium 8.5 Total Bilirubin 1.10 AST 62 H ALT 162 H Alkaline Phosphatase 78 Serum Total Protein 6.6 Albumin 3.6 Orders (Last 24 hours) Category Date Time Status CBC Urgent Lab 09/28/21 10:30 Completed CMP Urgent Lab 09/28/21 10:30 Completed D-DIMER QUANTITATIVE Routine Lab 09/28/21 10:30 Completed Levofloxacin [Levaquin 250MG/50ML D5W] Med 09/28/21 14:00 Active 250 mg in 50 ml IV QAM Patient Care Notes (Last 24 hours) 09/28/21 09:01 Case Management Note by Ewa Alvarado PATIENT STILL ACUTELY ILL- WILL NEED DC NEEDS REASSESSED AT TIME OF DC. PATIENT IS NORMALLY INDEPENDENT AND LIVES WITH HIS . HE DOES NOT WEAR ANY HOME OXYGEN Initialized on 09/28/21 09:01 - END OF NOTE Code(s): J96.20 - ACUTE AND CHR RESP FAILURE, UNSP W HYPOXIA OR HYPERCAPNIA (2) COPD exacerbation Current Visit: Yes Status: Acute Code(s): J44.1 - CHRONIC OBSTRUCTIVE PULMONARY DISEASE W (ACUTE) EXACERBATION (3) Pneumonia due to COVID-19 virus Current Visit: Yes Status: Acute Code(s): U07.1 - COVID-19; J12.82 - PNEUMONIA DUE TO CORONAVIRUS DISEASE 2019 (4) SARS-CoV-2 positive Current Visit: Yes Status: Acute Code(s): U07.1 - COVID-19
[2021-09-28] MEDS: XANAX 1 MG PO SCH (22:29)
[2021-09-28] MEDS: Colace 100 MG PO SCH (22:29)
[2021-09-29 06:15] LABS: Hematocrit 48.6 % (42-50); Hemoglobin 15.8 gm/dl (12.5-18.0); Mean Cell Volume 95.3 fl (78-100); Mean Corpuscular Hgb Concent. 32.5 g/dl (32-36); Mean Platelet Volume 8.9 fl (7.5-11.0); Platelet Count 404 K/mm3 (150-450); Red Cell Distribution Width 13.2 % (11.5-14.0); White Blood Count 22.9 K/mm3 (4.0-10.5)
[2021-09-29 06:44] LABS: ALBUMIN 3.4 g/dL (3.5-5.0); ALKALINE PHOSPHATASE 63 U/L (38-126); ANION GAP 10.2 MEQ/L (5-15); BLOOD UREA NITROGEN 28 mg/dL (9-20); CHLORIDE 95 mmol/L (98-107); Calcium 7.9 mg/dL (8.4-10.2); Carbon Dioxide 30 mmol/L (22-30); Creatinine 1 0.95 mg/dL (0.66-1.25); EST GLOMERULAR FILTRATION RATE > 60.0 ML/MIN; Glucose 136 mg/dL (74-106); Potassium 4.5 mmol/L (3.5-5.1); SGOT/AST 60 U/L (17-59); SGPT/ALT 160 U/L (0-50); SODIUM 131 mmol/L (137-145); Total Protein 6.1 g/dL (6.3-8.2)
[2021-09-29] MEDS: Advair Hfa 230/21 Mcg COMMON CANISTER IH SCH ×2 (07:20→19:45)
--- NOTE | 2021-09-29 07:25 | XRAY ---
Indication: Follow-up Covid 19. Comparison: September 23, 2021. Portable chest again hyperinflated with minimal clearing of previous bibasilar interstitial alveolar opacities. Remaining heart and upper lungs unremarkable. No new cardiopulmonary abnormalities.
[2021-09-29] MEDS: ENOXAPARIN SODIUM SQ SCH (09:18)
[2021-09-29] MEDS: Flomax 0.4 MG PO SCH (09:19)
[2021-09-29] MEDS: Colace 100 MG PO SCH ×2 (09:19→21:16)
[2021-09-29] MEDS: OLUMIANT PO SCH (09:19)
[2021-09-29] MEDS: ECOTRIN 81 MG PO SCH (09:19)
[2021-09-29] MEDS: ZOCOR 20MG PO SCH (09:19)
[2021-09-29] MEDS: Pepcid 20 MG PO SCH ×2 (09:19→21:16)
[2021-09-29] MEDS: DECADRON 10MG INJ. IV SCH (09:20)
[2021-09-29] MEDS: MARY'S MOUTHWASH PO SCH ×4 (09:21→21:16)
[2021-09-29] MEDS: Levaquin 250MG/50ML D5W 250 MG/50 ML BAG IV SCH (09:29)
[2021-09-29] MEDS: SENOKOT 8.6 MG PO SCH (12:48)
[2021-09-29] MEDS: MERREM 500MG 500 MG in Sodium Chloride 100ML MINI-BAG PLUS 100 ML IV SCH ×3 (12:59→23:16)
[2021-09-29] MEDS: XANAX 1 MG PO SCH (21:16)
[2021-09-30] MEDS: MERREM 500MG 500 MG in Sodium Chloride 100ML MINI-BAG PLUS 100 ML IV SCH ×3 (05:43→17:08)
[2021-09-30 06:23] LABS: Hematocrit 44.1 % (42-50); Hemoglobin 14.4 gm/dl (12.5-18.0); Mean Cell Volume 95.5 fl (78-100); Mean Corpuscular Hemoglobin 31.2 pg (26-32); Mean Corpuscular Hgb Concent. 32.7 g/dl (32-36); Mean Platelet Volume 8.7 fl (7.5-11.0); Platelet Count 400 K/mm3 (150-450); Red Blood Count 4.62 M/mm3 (4.1-5.6)
[2021-09-30 06:47] LABS: White Blood Count 25.7 K/mm3 (4.0-10.5)
[2021-09-30] MEDS: Advair Hfa 230/21 Mcg COMMON CANISTER IH SCH ×2 (07:15→20:06)
[2021-09-30 07:37] LABS: ANISOCYTOSIS 1+; ATYPICAL LYMPHS 4 %; Lymphocytes 4 % (24-44); Monocyte 3 % (0.0-12.0); Neutrophils 89 % (36.-66.); Platelet Estimate NORMAL (NORMAL); Poikilocytosis 1+; Total Cells Counted 100
[2021-09-30] MEDS: SENOKOT 8.6 MG PO SCH (09:56)
[2021-09-30] MEDS: Colace 100 MG PO SCH ×2 (09:56→21:10)
[2021-09-30] MEDS: ECOTRIN 81 MG PO SCH (09:57)
[2021-09-30] MEDS: Flomax 0.4 MG PO SCH (09:57)
[2021-09-30] MEDS: Pepcid 20 MG PO SCH ×2 (09:57→21:10)
[2021-09-30] MEDS: ZOCOR 20MG PO SCH (09:58)
[2021-09-30] MEDS: DECADRON 10MG INJ. IV SCH (09:58)
[2021-09-30] MEDS: OLUMIANT PO SCH (09:58)
[2021-09-30] MEDS: ENOXAPARIN SODIUM SQ SCH (10:00)
[2021-09-30] MEDS: MARY'S MOUTHWASH PO SCH ×4 (10:00→21:11)
[2021-09-30] MEDS: Diflucan 100 MG PO SCH (12:19)
[2021-09-30] MEDS: XANAX 1 MG PO SCH (21:10)
[2021-09-30] MEDS: Miralax Powder 17GM PACKET PO SCH (21:20)
[2021-10-01] MEDS: MERREM 500MG 500 MG in Sodium Chloride 100ML MINI-BAG PLUS 100 ML IV SCH ×5 (00:05→23:16)
[2021-10-01] MEDS: Advair Hfa 230/21 Mcg COMMON CANISTER IH SCH (07:47)
[2021-10-01] MEDS: SENOKOT 8.6 MG PO SCH ×2 (09:07→09:10)
[2021-10-01] MEDS: DECADRON 10MG INJ. IV SCH (09:07)
[2021-10-01] MEDS: ENOXAPARIN SODIUM SQ SCH (09:07)
[2021-10-01] MEDS: ECOTRIN 81 MG PO SCH (09:07)
[2021-10-01] MEDS: ZOCOR 20MG PO SCH (09:08)
[2021-10-01] MEDS: OLUMIANT PO SCH (09:08)
[2021-10-01] MEDS: Flomax 0.4 MG PO SCH (09:08)
[2021-10-01] MEDS: Colace 100 MG PO SCH ×2 (09:08→21:14)
[2021-10-01] MEDS: Miralax Powder 17GM PACKET PO SCH (09:09)
[2021-10-01] MEDS: Pepcid 20 MG PO SCH ×2 (09:11→21:14)
[2021-10-01] MEDS: MARY'S MOUTHWASH PO SCH ×4 (10:18→21:14)
[2021-10-01] MEDS: Diflucan 100 MG PO SCH (10:18)
[2021-10-01 11:12] LABS: Creatinine 1 0.73 mg/dL (0.66-1.25); EST GLOMERULAR FILTRATION RATE > 60.0 ML/MIN
[2021-10-01] MEDS: Advair Hfa 230/21 Mcg MDI IH SCH (19:15)
[2021-10-01] MEDS: XANAX 1 MG PO SCH (21:14)
[2021-10-02] MEDS: MERREM 500MG 500 MG in Sodium Chloride 100ML MINI-BAG PLUS 100 ML IV SCH ×2 (04:57→13:30)
[2021-10-02 05:36] LABS: Hematocrit 42.3 % (42-50); Hemoglobin 13.6 gm/dl (12.5-18.0); Mean Cell Volume 96.8 fl (78-100); Mean Corpuscular Hemoglobin 31.1 pg (26-32); Mean Corpuscular Hgb Concent. 32.2 g/dl (32-36); Mean Platelet Volume 8.7 fl (7.5-11.0); Platelet Count 355 K/mm3 (150-450); Red Blood Count 4.37 M/mm3 (4.1-5.6); Red Cell Distribution Width 13.3 % (11.5-14.0)
[2021-10-02 05:38] LABS: White Blood Count 25.6 K/mm3 (4.0-10.5)
[2021-10-02] MEDS: Advair Hfa 230/21 Mcg MDI IH SCH (07:22)
[2021-10-02] MEDS: DECADRON 10MG INJ. IV SCH (09:08)
[2021-10-02] MEDS: Pepcid 20 MG PO SCH (09:08)
[2021-10-02] MEDS: ECOTRIN 81 MG PO SCH (09:08)
[2021-10-02] MEDS: ZOCOR 20MG PO SCH (09:08)
[2021-10-02] MEDS: Colace 100 MG PO SCH (09:08)
[2021-10-02] MEDS: ENOXAPARIN SODIUM SQ SCH (09:08)
[2021-10-02] MEDS: Diflucan 100 MG PO SCH (09:09)
[2021-10-02] MEDS: MARY'S MOUTHWASH PO SCH ×2 (09:09→13:30)
[2021-10-02] MEDS: Flomax 0.4 MG PO SCH (09:09)
[2021-10-02] MEDS: Miralax Powder 17GM PACKET PO SCH (09:10)
[2021-10-02] MEDS: SENOKOT 8.6 MG PO SCH (09:10)
[2021-10-02 12:03] VITALS: BP 119/59; PULSE 88
--- NOTE | 2021-10-02 13:27 | DS ---
ADMISSION DIAGNOSES: 1) COVID pneumonia. 2) Respiratory distress. DISCHARGE DIAGNOSES: 1) COVID PNEUMONIA. 2) RESPIRATORY DISTRESS. 3) SECONDARY PNEUMONIA. 4) HYPERCHOLESTEROLEMIA. 5) BENIGN PROSTATIC HYPERTROPHY. 6) CONSTIPATION. 7) MILD ANXIETY. HOSPITAL COURSE: The patient became very short of breath and was brought to the emergency room. There his O2 saturations were in the 70's and they came up with high-flow oxygen. During his stay, he required high-flow oxygen until the last day or two where we got him down to nasal cannula with 7 or 8 liters. He is pretty demanding on going home and I think we can control that with high-flow cannula. He understands his oxygen absorption is borderline and if he gets short of breath, he is to return to the emergency room and to check his O2 saturation frequently. He had a big problem with constipation but after Fleet's enema that was resolved. He had hemorrhoid surgery, which I guess caused some narrowing and pain in the distant past. He is going home in the care of his . I note that during his stay his white count went up to as high as 25,000 and this really did not change. His D-dimer is still elevated at 1400 but that is much lower than when he came in. He is ambulating without problems. I am hoping that is all from steroids but we did send him home on Levaquin and he is to see his family doctor in one week, sooner if there are any problems. His home medications are: Crestor 10, Flomax 0.4, Xanax 1 mg q.d., aspirin 81. Plus, we will send him home on prednisone 40 mg x5, 20 mg x5.
[2021-10-02 13:31] VITALS: O2SAT 94
== END 2021-10-02 13:55 | disposition home health service (06) | DRG 177 ==
LOC: ED 11:04 → MED SURG 14:10 → OBSVTOIN 17:24
PROVIDERS: ADMIT Family Medicine; ATTEND Family Medicine
DX: U07.1 COVID-19 (principal); J96.21 Acute and chronic respiratory failure with hypoxia; J96.22 Acute and chronic respiratory failure with hypercapnia; J12.82 Pneumonia due to coronavirus disease 2019; J44.1 Chronic obstructive pulmonary disease with (acute) exacerbation; E78.00 Pure hypercholesterolemia, unspecified; D29.1 Benign neoplasm of prostate; K59.00 Constipation, unspecified; F41.9 Anxiety disorder, unspecified; L89.152 Pressure ulcer of sacral region, stage 2; Z79.899 Other long term (current) drug therapy; Z20.828 Contact with and (suspected) exposure to other viral communicable diseases
CPT/HCPCS: 0241U; 36415; 36600; 71045; 76705; 80051; 80053; 80074; 81001; 82375; 82565; 82803; 82947; 83605; 83690; 83880; 84145; 84484; 85025; 85027; 85379; 87040; 87077; 87086; 87186; 87651; 93268; 94640; 94760; 94762; 96372; 96374; 99285; J0248; J0610; J1100; J1650; J1956; A9270-GY; J3370

== ENCOUNTER 2021-12-29 14:20 | Emergency (ER) | payer MEDICARE ==
[2021-12-29] MEDS ORDERED: Zofran 4 MG/2 ML VIAL IV ONE (14:25)
[2021-12-29] MEDS ORDERED: SUBLIMAZE 100 MCG/2 ML IV ONE (14:25)
[2021-12-29] MEDS ORDERED: Zofran 4 MG/2 ML VIAL ONE (14:29)
[2021-12-29] MEDS ORDERED: SUBLIMAZE 100 MCG/2 ML ONE (14:30)
--- NOTE | 2021-12-29 15:20 | ERPHSYRPT ---
- History of Present Illness Time Seen by Provider: 12/29/21 14:25 Source: patient Exam Limitations: no limitations Patient Subjective Stated Complaint: pt reports he was outdoors today moving items from one shed to another when he tripped and fell, landing on his left hip , pt also has a small abrasion to his left elbow. Triage Nursing Assessment: pt is aox3, appears in pain, pupils perrl, afebrile, resps easy and non labored, cap refill < 3 seconds, radial pulses strong and equal, pt skin pink warm dry, pt with tenderness to the left hip, increased with movement, pt pedal pulses intact, pt sensation intact, pt is able to move his toes bilat. Physician History: 76 yo tripped while moving stuff from one shed to another and had a ground level fall. tried to stop with arms but landed on left hip with inability to get up. sharp shooting severe pain left hip with minimal movements. abrasion left arm but no pain . no injury anywhere else. Occurred: just prior to arrival Reason for Fall: tripped Injuries/Pain Location: lower extremity Loss of Consciousness: no loss of consciousness Quality: sharpness Severity of Pain-Max: severe Severity of Pain-Current: severe Modifying Factors: Improves With: immobilization. Worsens With: movement Associated Symptoms (Fall): extremity injury, muscle spasms Allergies/Adverse Reactions: azithromycin [From Zithromax] Allergy (Unknown, Verified 12/29/21 14:27) Pt stated he is unsure of the reaction but states he has one to this medication. ceftriaxone Allergy (Unknown, Verified 12/29/21 14:27) Pt stated he is unsure of the reaction but states he has one to this medication. prednisone Allergy (Unknown, Verified 12/29/21 14:27) Pt stated he is unsure of the reaction but states he has one to this medicati on. Home Medications: Rosuvastatin Calcium [Crestor] 10 mg PO DAILY 08/02/19 [History] Tamsulosin HCl 0.4 mg [Flomax 0.4 MG] 0.4 mg PO DAILY 09/07/21 [History] ALPRAZolam 1 MG [Xanax 1 mg] 1 mg PO DAILY 09/17/21 [History] Aspirin [Aspirin EC] 81 mg PO DAILY 09/17/21 [History] Hx Tetanus, Diphtheria Vaccination/Date Given: Yes Hx Influenza Vaccination/Date Given: Yes (05/31/19) Hx Pneumococcal Vaccination/Date Given: Yes (2010) Immunizations Up to Date: Yes Travel Risk - International Travel Have you traveled outside of the country in past 3 weeks: No - Coronavirus Screening Are you exhibiting any of the following symptoms?: No Close contact with a COVID-19 positive Pt in past 14-21 Days: No - Vaccine Status Have you recieved a Covid-19 vaccination: No - Review of Systems Constitutional: No Symptoms Eyes: No Symptoms Ears, Nose, & Throat: No Symptoms Respiratory: No Symptoms Cardiac: No Symptoms Abdominal/Gastrointestinal: No Symptoms Genitourinary Symptoms: No Symptoms Musculoskeletal: Deformity, Fall, Injury, Joint Pain, Joint Swelling Skin: No Symptoms Neurological: No Symptoms Psychological: No Symptoms Endocrine: No Symptoms Hematologic/Lymphatic: No Symptoms Immunological/Allergic: No Symptoms - Past Medical History Pertinent Past Medical History: Yes Neurological History: No Pertinent History ENT History: Cataracts Cardiac History: No Pertinent History, High Cholesterol Respiratory History: COPD Endocrine Medical History: No Pertinent History Musculoskeletal History: No Pertinent History GI Medical History: Gallbladder Disease, Hemorrhoids History: No Pertinent History Psycho-Social History: No Pertinent History Male Reproductive Disorders: No Pertinent History - Past Surgical History Past Surgical History: Yes Neuro Surgical History: No Pertinent History Cardiac: No Pertinent History Respiratory: No Pertinent History Gastrointestinal: Cholecystectomy, Hemorrhoidectomy Genitourinary: No Pertinent History Musculoskeletal: No Pertinent History Male Surgical History: No Pertinent History Other Surgical History: hemrrhoid surgery. rt and left cataract - Social History Smoking Status: Never smoker Exposure to second hand smoke: No Drug Use: none Patient Lives Alone: No - Nursing Vital Signs Nursing Vital Signs: Initial Vital Signs Temperature 99.3 F 12/29/21 14:20 Pulse Rate 87 12/29/21 14:20 Respiratory Rate 20 12/29/21 14:20 Blood Pressure 135/68 12/29/21 14:20 O2 Sat by Pulse Oximetry 87 L 12/29/21 14:20 Pain Scale Pain Intensity 9 - Lis Coma Score Best Eye Response ([place]): (4) open spontaneously Best Verbal Response (Lis): (5) oriented Best Motor Response (Lis): (6) obeys commands Lis Total: 15 - Physical Exam General Appearance: no apparent distress, alert Head Injury: no evidence of injury Eye Exam: PERRL/EOMI, eyes nml inspection ENT Exam: airway nml, nml ext.inspection, No evidence of ENT injury, No dental injury Neck Exam: supple, trachea midline, full range of motion, normal alignment, normal inspection Respiratory/Chest Exam: normal breath sounds, No chest tenderness, No respir atory distress Cardiovascular Exam: normal heart sounds, regular rate/rhythm Gastrointestinal Exam: soft, normal bowel sounds, No tenderness Back Exam: normal inspection, No CVA tenderness Extremity Exam: limited range of motion (left hip), hip tenderness (left), pain with movement, tenderness, No weight bearing, No capillary refill >3 sec Neurologic Exam: alert, oriented x 3, cooperative, air tucker II-XII nml as tested, normal mood/affect Skin Exam: normal color SpO2 Interpretation: normal SpO2: 94 O2 Delivery: Room Air Ordered Tests: Active Orders 24 hr Category Date Time Status IV Insertion STAT Care 12/29/21 14:28 Active Oxygen-ED Only Nasal Cannula 4 lpm Care 12/29/21 14:32 Active HIP UNI (2V) INCL PEL IF DONE Stat Exams 12/29/21 Taken Medication Summary Discontinued Medications Generic Name Dose Route Start Last Admin Trade Name Freq PRN Reason Stop Dose Admin Diphtheria/Tetanus/Acell Pertussis 0.5 ml 12/29/21 15:23 Tdap --Diph,Pertuss(Acell),Tet Vac/Pf 0.5 Ml Vial IM 12/29/21 15:24 .ONCE ONE Fentanyl Citrate 50 mcg 12/29/21 14:25 12/29/21 14:32 Fentanyl Citrate 100 Mcg/2 Ml* Vial IV 12/29/21 14:26 50 mcg STAT ONE Administration Fentanyl Citrate Confirm 12/29/21 14:30 Fentanyl Citrate 100 Mcg/2 Ml* Vial Administered 12/29/21 14:31 Dose 100 mcg .ROUTE .STK-MED ONE Ondansetron HCl 4 mg 12/29/21 14:25 12/29/21 14:32 Ondansetron Hcl 4 Mg/2 Ml Vial IV 12/29/21 14:26 4 mg STAT ONE Administration Ondansetron HCl Confirm 12/29/21 14:29 Ondansetron Hcl 4 Mg/2 Ml Vial Administered 12/29/21 14:30 Dose 4 mg .ROUTE .STK-MED ONE - Progress Progress: pain not gone completely Progress Note: 12/29/21 15:22 given fentanyl, xray showed inter trochanteric fx left , d/w at [facility] , patient is accepted for transfer. Discussed with : Other Counseled pt/family regarding: diagnosis, rad results - Departure Departure Disposition: Transfer Clinical Impression: Closed left hip fracture, Fall Condition: Stable Critical Care Time: No Referrals: ARIANA WESTFALL DO [Primary Care Provider] - Follow up/PCP as directed
[2021-12-29] MEDS ORDERED: Adacel Vial IM ONE ×2 (15:23→15:31)
[2021-12-29] MEDS ORDERED: MORPHINE SULFATE 4 MG INJ IV ONE (15:36)
[2021-12-29] MEDS ORDERED: Sodium Chloride 0.9% 1000 ML 1,000 ML ONE (15:36)
[2021-12-29] MEDS ORDERED: MORPHINE SULFATE 4 MG INJ ONE (15:36)
[2021-12-29] MEDS ORDERED: Sodium Chloride 0.9% 1000 ML 1,000 ML IV SCH (15:45)
[2021-12-29 16:07] VITALS: BP 105/55; PULSE 90; O2SAT 97
--- NOTE | 2021-12-29 17:31 | XRAY ---
Indication: Pain following fall. Comparison: None AP pelvis and 2 view left hip demonstrates mildly angulated left intertrochanteric comminuted fracture. Elsewhere osteopenia, mild lower lumbar degenerative changes, and a few pelvic phleboliths. No other bony, articular, or soft tissue abnormalities.
== END 2021-12-29 16:16 | disposition short-term general hospital (02) ==
LOC: ED 14:20
DX: S72.142A Displaced intertrochanteric fracture of left femur, initial encounter for closed fracture (principal); S40.812A Abrasion of left upper arm, initial encounter; W01.0XXA Fall on same level from slipping, tripping and stumbling without subsequent striking against object, initial encounter; Y93.H9 Activity, other involving exterior property and land maintenance, building and construction; Y92.007 Garden or yard of unspecified non-institutional (private) residence as the place of occurrence of the external cause; E78.5 Hyperlipidemia, unspecified; J44.9 Chronic obstructive pulmonary disease, unspecified; Z79.899 Other long term (current) drug therapy
CPT/HCPCS: 36000; 73502; 90471; 90715; 96374; 96375; 99285; J2270; J2405; J3010

== ENCOUNTER 2022-05-04 18:10 | Emergency (ER) | payer MEDICARE ==
[2022-05-04 18:32] VITALS: O2SAT 96
[2022-05-04] MEDS ORDERED: Vibramycin 100 MG PO ONE (19:04)
--- NOTE | 2022-05-04 19:13 | ERPHSYRPT ---
- History of Present Illness Time Seen by Provider: 05/04/22 18:11 Source: patient Exam Limitations: no limitations Patient Subjective Stated Complaint: Redness to right breast Triage Nursing Assessment: Patient ambulated with cane back to ED and t ransferred self to bed. Patient A+O X 3. Patient's skin pink, warm and dry. Patient complains of redness around right breasts for two weeks. Patient denies pain or discomfort. Patient was seen in [facility] for issue and is scheduled for mammogram, which he refuses. Physician History: 77 years old male presented in the ER with chief complaint of right breast swelling gradually worsening for 2 weeks. Patient thinks he got bit by a spider probably. It was initially just swelling and lately having some burning sensation which gets better with ice application. Questionable discharge of pus from the nipple. No fever or chills reported. Timing/Duration: week(s) (2), gradual onset, worse Quality: burning Severity: mild, moderate Location: torso Associated Symptoms: change in skin texture, rash, swelling/mass/lumps Allergies/Adverse Reactions: azithromycin [From Zithromax] Allergy (Unknown, Verified 05/04/22 18:19) Pt stated he is unsure of the reaction but states he has one to this medication. ceftriaxone Allergy (Unknown, Verified 05/04/22 18:19) Pt stated he is unsure of the reaction but states he has one to this medication. prednisone Allergy (Unknown, Verified 05/04/22 18:19) Pt stated he is unsure of the reaction but states he has one to this medication. Home Medications: Rosuvastatin Calcium [Crestor] 10 mg PO DAILY 08/02/19 [History] Tamsulosin HCl 0.4 mg [Flomax 0.4 MG] 0.4 mg PO DAILY 09/07/21 [History] ALPRAZolam 1 MG [Xanax 1 mg] 1 mg PO DAILY 09/17/21 [History] Aspirin [Aspirin EC] 81 mg PO DAILY 09/17/21 [History] Hx Tetanus, Diphtheria Vaccination/Date Given: Yes Hx Influenza Vaccination/Date Given: Yes (05/31/19) Hx Pneumococcal Vaccination/Date Given: Yes (2010) Immunizations Up to Date: Yes Travel Risk - International Travel Have you traveled outside of the country in past 3 weeks: No - Coronavirus Screening Are you exhibiting any of the following symptoms?: No Close contact with a COVID-19 positive Pt in past 14-21 Days: No - Vaccine Status Have you recieved a Covid-19 vaccination: No - Review of Systems Constitutional: No Symptoms Eyes: No Symptoms Respiratory: No Symptoms Cardiac: No Symptoms Abdominal/Gastrointestinal: No Symptoms Musculoskeletal: No Symptoms Skin: Cellulitis Neurological: No Symptoms Psychological: No Symptoms Endocrine: No Symptoms - Past Medical History Pertinent Past Medical History: Yes Neurological History: No Pertinent History ENT History: Cataracts Cardiac History: No Pertinent History, High Cholesterol Respiratory History: COPD Endocrine Medical History: No Pertinent History Musculoskeletal History: No Pertinent History GI Medical History: Gallbladder Disease, Hemorrhoids History: No Pertinent History Psycho-Social History: No Pertinent History Male Reproductive Disorders: No Pertinent History - Past Surgical History Past Surgical History: Yes Neuro Surgical History: No Pertinent History Cardiac: No Pertinent History Respiratory: No Pertinent History Gastrointestinal: Cholecystectomy, Hemorrhoidectomy Genitourinary: No Pertinent History Musculoskeletal: No Pertinent History Male Surgical History: No Pertinent History Other Surgical History: hemrrhoid surgery. rt and left cataract - Social History Smoking Status: Never smoker Exposure to second hand smoke: No Drug Use: none Patient Lives Alone: No - Nursing Vital Signs Nursing Vital Signs: Initial Vital Signs Temperature 97.3 F 05/04/22 18:23 Pulse Rate 64 05/04/22 18:23 Respiratory Rate 18 05/04/22 18:23 Blood Pressure 145/66 05/04/22 18:23 O2 Sat by Pulse Oximetry 95 05/04/22 18:23 Pain Scale Pain Intensity 0 - Physical Exam General Appearance: no apparent distress, alert Eye Exam: PERRL/EOMI Ears, Nose, Throat Exam: normal ENT inspection Neck Exam: normal inspection, full range of motion Respiratory Exam: normal breath sounds, chest tenderness (Erythema right nipple and around breast with minimal tenderness. Blanchable. Induration and swelling underneath the nipple.), lungs clear Cardiovascular Exam: regular rate/rhythm, normal heart sounds Back Exam: normal inspection, normal range of motion Extremity Exam: normal inspection, normal range of motion Neurologic Exam: alert, oriented x 3, cooperative Skin Exam: normal color SpO2 Interpretation: normal SpO2: 96 O2 Delivery: Room Air Ordered Tests: Medication Summary Discontinued Medications Generic Name Dose Route Start Last Admin Trade Name Gerardo PRN Reason Stop Dose Admin Doxycycline Hyclate 100 mg 05/04/22 19:04 Doxycycline Hyclate 100 Mg Tablet PO 05/04/22 19:05 STAT ONE - Progress Progress: unchanged Progress Note: 05/04/22 19:11 Has redness around the nipple with swelling underneath. I would give him doxycycline and have him outpatient follow-up with primary care for mammogram/ultrasound. Counseled pt/family regarding: diagnosis, need for follow-up - Departure Departure Disposition: Home Clinical Impression: Cellulitis of breast of male Condition: Stable Critical Care Time: No Referrals: ARIANA WESTFALL, [Primary Care Provider] - Follow up/PCP as directed (In 2 days for reevaluation) Instructions: Cellulitis (Skin Infection), Adult ED Additional Instructions: Take Tylenol as needed, intermittent ice application. Follow-up with primary care for reevaluation/ultrasound/mammogram. Return to ER for any worsening. Prescriptions: Doxycycline Hyclate 100 mg [Vibramycin 100 MG] 100 mg PO BID #14 tab
[2022-05-04] MEDS ORDERED: Vibramycin 100 MG ONE (19:16)
[2022-05-04 19:20] VITALS: BP 145/71; PULSE 62
== END 2022-05-04 19:31 | disposition home or self-care (01) ==
LOC: ED 18:10
DX: N61.0 Mastitis without abscess (principal); E78.5 Hyperlipidemia, unspecified; J44.9 Chronic obstructive pulmonary disease, unspecified; Z79.899 Other long term (current) drug therapy; Z28.310 Unvaccinated for COVID-19
CPT/HCPCS: 99281; A9270-GY